=== PATIENT | male | born 1945 | race Caucasian/White ===

== ENCOUNTER 2018-12-25 19:10 | Inpatient (IN) ==
--- NOTE | 2018-12-25 19:14 | Emergency Department Note ---
Fever HPI - General Stated Complaint: kidney problems Time Seen by Provider: 12/25/18 19:14 - Related Data Home Medications Medication Instructions Recorded Confirmed Alfuzosin HCl [Uroxatral] 10 mg PO DAILY 06/27/18 06/27/18 Allopurinol [Zyloprim 100 MG] 100 mg PO DAILY 06/27/18 06/27/18 Amlodipine Besylate 5 mg PO BID 06/27/18 06/27/18 Atenolol [Tenormin] 25 mg PO BID 06/27/18 06/27/18 Cholecalciferol (D-3) [Vitamin D] 1,000 unit PO DAILY 06/27/18 06/27/18 Cyanocobalamin (Vitamin B-12) 1,000 mcg PO DAILY 06/27/18 06/27/18 [Vitamin B12] Furosemide [Lasix] 40 mg PO BID 06/27/18 06/27/18 Gabapentin [Neurontin] 600 mg PO TID 06/27/18 06/27/18 Insulin Regular U-500 [HumuLIN R 0.8 unit SQ DAILY 06/27/18 06/27/18 U-500] Melatonin 10 mg PO DAILY 06/27/18 06/27/18 OxyCODONE/APAP 5/325 [Percocet 1 each PO Q6HR PRN 06/27/18 06/27/18 5/325 MG] Simvastatin [Zocor] 20 mg PO HS 06/27/18 06/27/18 Spironolact/Hydrochlorothiazid 1 each PO DAILY 06/27/18 06/27/18 [Aldactazide 25-25 Tablet] Warfarin Sodium 5 mg PO DAILY 06/27/18 06/27/18 hydrALAZINE [HydrALAZINE] 10 mg PO Q6HR 06/27/18 06/27/18 Allergies Allergy/AdvReac Type Severity Reaction Status Date / Time ciprofloxacin [From Cipro] AdvReac Nausea Verified 06/27/18 13:50 morphine AdvReac Nausea Verified 06/27/18 13:50 Saxagliptin [From Onglyza] AdvReac Nausea Verified 06/27/18 13:50 sulfamethoxazole AdvReac Nausea Verified 06/27/18 13:50 [From Bactrim] trimethoprim [From Bactrim] AdvReac Nausea Verified 06/27/18 13:50 Fever PMH - Past Medical History Medical history: Reports: CHF, diabetes, hypertension Surgical history: Reports: knee replacement Psychiatric history: Reports: no psych history - Social History Smoking Status: Former smoker Alcohol use: Reports: none Drug use: Reports: none Attestation Statement - Attestation Attestation: I reviewed the residents documentation and agree with the residents assessment and plan of care. I have personally had face to face time with the patient. (Brief History, Brief Exam, and MDM) I personally supervised and was present for the coronado/critical portions of the following procedures completed by the resident: (add procedures performed here). [id number] time provided Patient arrives from the [facility]. He was recently started on Bactrim for bilateral lower extremity cellulitis. He presents with generalized weakness, increased leg edema, and rash. The patient states he is now unable to ambulate. He does have impressive lower extremity edema with secondary superficial skin changes bilaterally including cobblestoning of the skin. I attest to supervising the resident physician's interpretation of the ECG
--- NOTE | 2018-12-25 19:36 | Emergency Department Note ---
Disposition Clinical Impression: CHF (congestive heart failure) Disposition: Admitted As Inpatient Condition: Fair General Adult HPI - General Chief complaint: ED Allergic Reaction Stated complaint: kidney problems Time Seen by Provider: 12/25/18 19:14 Source: patient, EMS Limitations: no limitations - History of Present Illness Pain Scale: 0 - Related Data Home Medications Medication Instructions Recorded Confirmed Allopurinol [Zyloprim 100 MG] 100 mg PO QAM 12/26/18 12/26/18 Allopurinol [Zyloprim 100 MG] 200 mg PO HS 12/26/18 12/26/18 Atenolol [Tenormin] 25 mg PO BID 12/26/18 12/26/18 Brimonidine 0.2% [Alphagan] 1 drop BOTH EYES BID 12/26/18 12/26/18 Cholecalciferol (D-3) [Vitamin D] 2,000 unit PO DAILY 12/26/18 12/26/18 Cyanocobalamin (Vitamin B-12) 500 mcg PO DAILY 12/26/18 12/26/18 [Vitamin B-12] Furosemide [Lasix] 80 mg PO BID 12/26/18 12/26/18 Gabapentin [Neurontin] 800 mg PO BID 12/26/18 12/26/18 Latanoprost [Xalatan] 1 drop BOTH EYES HS 12/26/18 12/26/18 OxyCODONE Immed Rel [Roxicodone 5 10 mg PO Q6HR 12/26/18 12/26/18 MG] Phenazopyridine HCl 200 mg PO TID 12/26/18 12/26/18 Simvastatin [Zocor] 20 mg PO HS 12/26/18 12/26/18 Spironolactone [Aldactone] 25 mg PO BID 12/26/18 12/26/18 Subcutaneous Insulin Pump [T:Slim] 1 each MC AD 12/26/18 12/26/18 Tamsulosin [Flomax] 0.4 mg PO DAILY 12/26/18 12/26/18 Warfarin [Coumadin] 5 mg PO SUMOTUWETHSA 12/26/18 12/26/18 Warfarin [Coumadin] 7.5 mg PO FR 12/26/18 12/26/18 amLODIPine [Norvasc] 5 mg PO BID 12/26/18 12/26/18 hydrALAZINE [HydrALAZINE] 10 mg PO BID 12/26/18 12/26/18 Allergies Allergy/AdvReac Type Severity Reaction Status Date / Time ciprofloxacin [From Cipro] AdvReac Nausea Verified 12/26/18 12:11 morphine AdvReac Nausea Verified 12/26/18 12:11 Saxagliptin [From Onglyza] AdvReac Nausea Verified 12/26/18 12:11 sulfamethoxazole AdvReac Nausea Verified 12/26/18 12:11 [From Bactrim] trimethoprim [From Bactrim] AdvReac Nausea Verified 12/26/18 12:11 Past Medical History - Past Medical History Medical history: Reports: CHF, diabetes, hypertension Surgical history: Reports: knee replacement Psychiatric history: Reports: no psych history - Social History Smoking Status: Former smoker Smokeless Tobacco Status: No Alcohol use: Reports: none Drug use: Reports: none Physical Exam - General Limitations: no limitations General appearance: alert, in no apparent distress Course Vital Signs Temperature 98.1 F 12/25/18 19:12 Pulse Rate 53 12/25/18 19:12 Respiratory Rate 18 12/25/18 19:12 Blood Pressure 150/55 12/25/18 19:12 O2 Sat by Pulse Oximetry 96 12/25/18 19:12 Temperature 98.0 F 12/27/18 11:13 Pulse Rate 70 12/27/18 11:13 Respiratory Rate 16 12/27/18 11:13 Blood Pressure 169/63 12/27/18 11:13 O2 Sat by Pulse Oximetry 93 12/27/18 11:13 Oxygen Delivery Oxygen Delivery Room Air Medical Decision Making - Lab Data Result diagrams: 12/27/18 00:23 12/27/18 00:23 Lab Results 12/25/18 12/25/18 12/25/18 Range/Units 19:21 19:21 19:21 WBC 8.1 (4.3-11.1) K/mcL RBC 3.51 L (4.19-5.50) M/mcL Hgb 10.1 L (12.9-16.9) g/dL Hct 31.4 L (37.5-50.1) % MCV 89.5 (83.0-100.0) fL MCH 28.8 (28.0-33.3) pg MCHC 32.2 (31.6-35.5) g/dL RDW 15.3 H (11.5-14.5) % Plt Count 196 (140-400) K/mcL MPV 11.3 (9.4-12.4) fL Immature Gran % 0.4 (0-4) % Seg Neutrophils % 78.3 % Lymphocytes % 11.9 % Monocytes % 7.6 % Eosinophils % 1.6 % Basophils % 0.2 % Neutrophils # 6.4 (1.6-8.9) K/mcL Lymphocytes # 1.0 (0.6-4.6) K/mcL Monocytes # 0.6 (0.0-1.3) K/mcL Eosinophils # 0.1 (0.0-0.6) K/mcL Basophils # 0.0 (0.0-0.2) K/mcL PT 47.8 H* (9.4-12.1) Seconds INR 4.2 Sodium 134 L (136-145) mEq/L Potassium 6.5 H* (3.5-5.1) mEq/L Chloride 104 (98-107) mEq/L Carbon Dioxide 21 L (23-29) mEq/L BUN 93 H (8-23) mg/dL Creatinine 3.67 H (0.70-1.30) mg/dL Est GFR ( Amer) 20 L (> 60) Est GFR (Non-Af Amer) 16 L (> 60) BUN/Creatinine Ratio 25 (6-26) Glucose 95 (70-105) mg/dL POC Glucose (70-99) mg/dL Calculated Osmolality 306 H (280-300) Calcium 9.1 (8.6-10.3) mg/dL Total Bilirubin 0.9 (0.3-1.0) mg/dL AST 29 (13-39) Units/L ALT 19 (7-52) Units/L Alkaline Phosphatase 79 (34-104) Units/L B-Natriuretic Peptide (Less than 100) pg/mL Serum Total Protein 7.5 (6.4-8.9) g/dL Albumin 3.3 L (3.5-5.7) g/dL Globulin 4.2 H (2.4-3.5) g/dL Albumin/Globulin Ratio 0.8 L (1.1-2.2) Urine Color (Yellow) Urine Clarity (Clear) Urine pH (5.0-8.0) pH Units Ur Specific Caldwell (1.010-1.025) Urine Protein (Neg-Trace) mg/dL Urine Glucose (UA) (Normal) mg/dL Urine Ketones (Negative) mg/dL Urine Blood (Negative) Urine Nitrite (Negative) Urine Bilirubin (Negative) Urine Urobilinogen (Normal) mg/dL Ur Leukocyte Esterase (Negative) Urine Microscopic RBC (0-3) per hpf Urine Microscopic WBC (0-3) per hpf Ur Squamous Epith Cells (None-Few) per lpf Urine Bacteria (None-Few) per hpf Hyaline Casts (None-Few) per lpf Urine Creatinine mg/dL Urine Sodium mEq/L Digoxin (0.8-2.0) ng/mL 12/25/18 12/25/18 12/25/18 Range/Units 19:21 19:25 20:06 WBC (4.3-11.1) K/mcL RBC (4.19-5.50) M/mcL Hgb (12.9-16.9) g/dL Hct (37.5-50.1) % MCV (83.0-100.0) fL MCH (28.0-33.3) pg MCHC (31.6-35.5) g/dL RDW (11.5-14.5) % Plt Count (140-400) K/mcL MPV (9.4-12.4) fL Immature Gran % (0-4) % Seg Neutrophils % % Lymphocytes % % Monocytes % % Eosinophils % % Basophils % % Neutrophils # (1.6-8.9) K/mcL Lymphocytes # (0.6-4.6) K/mcL Monocytes # (0.0-1.3) K/mcL Eosinophils # (0.0-0.6) K/mcL Basophils # (0.0-0.2) K/mcL PT (9.4-12.1) Seconds INR Sodium (136-145) mEq/L Potassium (3.5-5.1) mEq/L Chloride (98-107) mEq/L Carbon Dioxide (23-29) mEq/L BUN (8-23) mg/dL Creatinine (0.70-1.30) mg/dL Est GFR ( Amer) (> 60) Est GFR (Non-Af Amer) (> 60) BUN/Creatinine Ratio (6-26) Glucose (70-105) mg/dL POC Glucose 90 (70-99) mg/dL Calculated Osmolality (280-300) Calcium (8.6-10.3) mg/dL Total Bilirubin (0.3-1.0) mg/dL AST (13-39) Units/L ALT (7-52) Units/L Alkaline Phosphatase (34-104) Units/L B-Natriuretic Peptide 317 H (Less than 100) pg/mL Serum Total Protein (6.4-8.9) g/dL Albumin (3.5-5.7) g/dL Globulin (2.4-3.5) g/dL Albumin/Globulin Ratio (1.1-2.2) Urine Color Yellow (Yellow) Urine Clarity Clear (Clear) Urine pH 5.5 (5.0-8.0) pH Units Ur Specific [place]dwell 1.012 (1.010-1.025) Urine Protein Negative (Neg-Trace) mg/dL Urine Glucose (UA) Normal (Normal) mg/dL Urine Ketones Negative (Negative) mg/dL Urine Blood Negative (Negative) Urine Nitrite Negative (Negative) Urine Bilirubin Negative (Negative) Urine Urobilinogen Normal (Normal) mg/dL Ur Leukocyte Esterase Trace H (Negative) Urine Microscopic RBC 5-15 H (0-3) per hpf Urine Microscopic WBC 3-5 H (0-3) per hpf Ur Squamous Epith Cells Many H (None-Few) per lpf Urine Bacteria None Seen (None-Few) per hpf Hyaline Casts Few (None-Few) per lpf Urine Creatinine mg/dL Urine Sodium mEq/L Digoxin (0.8-2.0) ng/mL 12/25/18 12/25/18 12/25/18 Range/Units 20:06 22:52 23:46 WBC (4.3-11.1) K/mcL RBC (4.19-5.50) M/mcL Hgb (12.9-16.9) g/dL Hct (37.5-50.1) % MCV (83.0-100.0) fL MCH (28.0-33.3) pg MCHC (31.6-35.5) g/dL RDW (11.5-14.5) % Plt Count (140-400) K/mcL MPV (9.4-12.4) fL Immature Gran % (0-4) % Seg Neutrophils % % Lymphocytes % % Monocytes % % Eosinophils % % Basophils % % Neutrophils # (1.6-8.9) K/mcL Lymphocytes # (0.6-4.6) K/mcL Monocytes # (0.0-1.3) K/mcL Eosinophils # (0.0-0.6) K/mcL Basophils # (0.0-0.2) K/mcL PT (9.4-12.1) Seconds INR Sodium (136-145) mEq/L Potassium (3.5-5.1) mEq/L Chloride (98-107) mEq/L Carbon Dioxide (23-29) mEq/L BUN (8-23) mg/dL Creatinine (0.70-1.30) mg/dL Est GFR ( Amer) (> 60) Est GFR (Non-Af Amer) (> 60) BUN/Creatinine Ratio (6-26) Glucose (70-105) mg/dL POC Glucose 69 L 82 (70-99) mg/dL Calculated Osmolality (280-300) Calcium (8.6-10.3) mg/dL Total Bilirubin (0.3-1.0) mg/dL AST (13-39) Units/L ALT (7-52) Units/L Alkaline Phosphatase (34-104) Units/L B-Natriuretic Peptide (Less than 100) pg/mL Serum Total Protein (6.4-8.9) g/dL Albumin (3.5-5.7) g/dL Globulin (2.4-3.5) g/dL Albumin/Globulin Ratio (1.1-2.2) Urine Color (Yellow) Urine Clarity (Clear) Urine pH (5.0-8.0) pH Units Ur Specific [place]dwell (1.010-1.025) Urine Protein (Neg-Trace) mg/dL Urine Glucose (UA) (Normal) mg/dL Urine Ketones (Negative) mg/dL Urine Blood (Negative) Urine Nitrite (Negative) Urine Bilirubin (Negative) Urine Urobilinogen (Normal) mg/dL Ur Leukocyte Esterase (Negative) Urine Microscopic RBC (0-3) per hpf Urine Microscopic WBC (0-3) per hpf Ur Squamous Epith Cells (None-Few) per lpf Urine Bacteria (None-Few) per hpf Hyaline Casts (None-Few) per lpf Urine Creatinine 100 mg/dL Urine Sodium 24.4 mEq/L Digoxin (0.8-2.0) ng/mL 12/26/18 12/26/18 12/26/18 Range/Units 01:12 01:12 01:49 WBC (4.3-11.1) K/mcL RBC (4.19-5.50) M/mcL Hgb (12.9-16.9) g/dL Hct (37.5-50.1) % MCV (83.0-100.0) fL MCH (28.0-33.3) pg MCHC (31.6-35.5) g/dL RDW (11.5-14.5) % Plt Count (140-400) K/mcL MPV (9.4-12.4) fL Immature Gran % (0-4) % Seg Neutrophils % % Lymphocytes % % Monocytes % % Eosinophils % % Basophils % % Neutrophils # (1.6-8.9) K/mcL Lymphocytes # (0.6-4.6) K/mcL Monocytes # (0.0-1.3) K/mcL Eosinophils # (0.0-0.6) K/mcL Basophils # (0.0-0.2) K/mcL PT 49.3 H* (9.4-12.1) Seconds INR 4.4 H* Sodium 136 (136-145) mEq/L Potassium 6.1 H (3.5-5.1) mEq/L Chloride 107 (98-107) mEq/L Carbon Dioxide 22 L (23-29) mEq/L BUN 93 H (8-23) mg/dL Creatinine 3.61 H (0.70-1.30) mg/dL Est GFR ( Amer) 20 L (> 60) Est GFR (Non-Af Amer) 17 L (> 60) BUN/Creatinine Ratio 26 (6-26) Glucose 61 L (70-105) mg/dL POC Glucose 70 (70-99) mg/dL Calculated Osmolality 309 H (280-300) Calcium 9.1 (8.6-10.3) mg/dL Total Bilirubin (0.3-1.0) mg/dL AST (13-39) Units/L ALT (7-52) Units/L Alkaline Phosphatase (34-104) Units/L B-Natriuretic Peptide (Less than 100) pg/mL Serum Total Protein (6.4-8.9) g/dL Albumin (3.5-5.7) g/dL Globulin (2.4-3.5) g/dL Albumin/Globulin Ratio (1.1-2.2) Urine Color (Yellow) Urine Clarity (Clear) Urine pH (5.0-8.0) pH Units Ur Specific [place]dwell (1.010-1.025) Urine Protein (Neg-Trace) mg/dL Urine Glucose (UA) (Normal) mg/dL Urine Ketones (Negative) mg/dL Urine Blood (Negative) Urine Nitrite (Negative) Urine Bilirubin (Negative) Urine Urobilinogen (Normal) mg/dL Ur Leukocyte Esterase (Negative) Urine Microscopic RBC (0-3) per hpf Urine Microscopic WBC (0-3) per hpf Ur Squamous Epith Cells (None-Few) per lpf Urine Bacteria (None-Few) per hpf Hyaline Casts (None-Few) per lpf Urine Creatinine mg/dL Urine Sodium mEq/L Digoxin 0.8 (0.8-2.0) ng/mL 12/26/18 12/26/18 12/26/18 Range/Units 02:43 03:11 04:05 WBC 6.1 (4.3-11.1) K/mcL RBC 3.28 L (4.19-5.50) M/mcL Hgb 9.5 L (12.9-16.9) g/dL Hct 29.4 L (37.5-50.1) % MCV 89.6 (83.0-100.0) fL MCH 29.0 (28.0-33.3) pg MCHC 32.3 (31.6-35.5) g/dL RDW 15.3 H (11.5-14.5) % Plt Count 166 (140-400) K/mcL MPV 11.8 (9.4-12.4) fL Immature Gran % 0.3 (0-4) % Seg Neutrophils % 70.3 % Lymphocytes % 15.0 % Monocytes % 10.1 % Eosinophils % 4.1 % Basophils % 0.2 % Neutrophils # 4.3 (1.6-8.9) K/mcL Lymphocytes # 0.9 (0.6-4.6) K/mcL Monocytes # 0.6 (0.0-1.3) K/mcL Eosinophils # 0.3 (0.0-0.6) K/mcL Basophils # 0.0 (0.0-0.2) K/mcL PT (9.4-12.1) Seconds INR Sodium (136-145) mEq/L Potassium (3.5-5.1) mEq/L Chloride (98-107) mEq/L Carbon Dioxide (23-29) mEq/L BUN (8-23) mg/dL Creatinine (0.70-1.30) mg/dL Est GFR ( Amer) (> 60) Est GFR (Non-Af Amer) (> 60) BUN/Creatinine Ratio (6-26) Glucose (70-105) mg/dL POC Glucose 80 84 (70-99) mg/dL Calculated Osmolality (280-300) Calcium (8.6-10.3) mg/dL Total Bilirubin (0.3-1.0) mg/dL AST (13-39) Units/L ALT (7-52) Units/L Alkaline Phosphatase (34-104) Units/L B-Natriuretic Peptide (Less than 100) pg/mL Serum Total Protein (6.4-8.9) g/dL Albumin (3.5-5.7) g/dL Globulin (2.4-3.5) g/dL Albumin/Globulin Ratio (1.1-2.2) Urine Color (Yellow) Urine Clarity (Clear) Urine pH (5.0-8.0) pH Units Ur Specific [place]dwell (1.010-1.025) Urine Protein (Neg-Trace) mg/dL Urine Glucose (UA) (Normal) mg/dL Urine Ketones (Negative) mg/dL Urine Blood (Negative) Urine Nitrite (Negative) Urine Bilirubin (Negative) Urine Urobilinogen (Normal) mg/dL Ur Leukocyte Esterase (Negative) Urine Microscopic RBC (0-3) per hpf Urine Microscopic WBC (0-3) per hpf Ur Squamous Epith Cells (None-Few) per lpf Urine Bacteria (None-Few) per hpf Hyaline Casts (None-Few) per lpf Urine Creatinine mg/dL Urine Sodium mEq/L Digoxin (0.8-2.0) ng/mL Critical Care Time Critical Care Time: Yes Total Critical Care Time: 30 Attestation: The high probability of a clinically significant, sudden or life threatening deterioration of the [] system(s) required my full and direct attention, intervention and personal management. The aggregate critical care time was [] minutes. This time is in addition to time spent performing reported procedures but includes the following: [] Data Review and interpretation [] Patient assessment and monitoring of vital signs [] Documentation [] Medication orders and management Attestation Statement - Attestation Attestation: I reviewed the residents documentation and agree with the residents assessment and plan of care. I have personally had face to face time with the patient. (Brief History, Brief Exam, and MDM) I personally supervised and was present for the coronado/critical portions of the following procedures completed by the resident: (add procedures performed here). [id number] time provided Patient arrives in the [facility] with decreased ability to ambulate and increased lower extremity edema. He does have impressive lower extremity edema with erythematous skin changes and cobblestoning of the skin. He was recently placed on Bactrim for suspected cellulitis. The patient appears generally weak on exam. I did review his baseline medication list and past medical history as sent by the [place] I attest to supervising the resident physician's interpretation of the ECG
--- NOTE | 2018-12-25 19:37 | Emergency Department Note ---
Disposition Clinical Impression: CHF (congestive heart failure) Qualifiers: Qualified Code(s): I50.9 - Disposition: Admitted As Inpatient Condition: Fair Time of Disposition: 08:59 General Adult HPI - General Chief complaint: ED Allergic Reaction Stated complaint: kidney problems Time Seen by Provider: 12/25/18 19:14 Source: patient, EMS Limitations: no limitations Nursing Notes Reviewed: Yes Vital Signs Reviewed: Yes - History of Present Illness HPI Narrative: 73-year-old male past medical history of diabetes, CHF, prior DVT, on Coumadin, noncompliant with CHF medications per patient's (taking when necessary digoxin) Was put on Bactrim last Wednesday for the management of cellulitis Patient states that he has allergy to sulfa drugs Patient states that he began having severe itchiness, difficulty breathing, since Wednesday evening In addition to the above stated symptoms, patient missed to fever/chills, dysphagia, feeling of tightness in the throat, chest pain, shortness of breath, abdominal pain/nausea/vomiting, Patient has not had anorexia, hematuria or hematochezia Onset (ago): day(s) Location: head, face, chest, abdomen Pain Severity: severe Pain Scale: 0 Quality: other (Itching) Associated symptoms: Reports: chest pain, fever/chills, nausea/vomiting, shortness of breath, weakness Treatments Prior to Arrival: none - Related Data Home Medications Medication Instructions Recorded Confirmed Alfuzosin HCl [Uroxatral] 10 mg PO DAILY 06/27/18 06/27/18 Allopurinol [Zyloprim 100 MG] 100 mg PO DAILY 06/27/18 06/27/18 Amlodipine Besylate 5 mg PO BID 06/27/18 06/27/18 Atenolol [Tenormin] 25 mg PO BID 06/27/18 06/27/18 Cholecalciferol (D-3) [Vitamin D] 1,000 unit PO DAILY 06/27/18 06/27/18 Cyanocobalamin (Vitamin B-12) 1,000 mcg PO DAILY 06/27/18 06/27/18 [Vitamin B12] Furosemide [Lasix] 40 mg PO BID 06/27/18 06/27/18 Gabapentin [Neurontin] 600 mg PO TID 06/27/18 06/27/18 Insulin Regular U-500 [HumuLIN R 0.8 unit SQ DAILY 06/27/18 06/27/18 U-500] Melatonin 10 mg PO DAILY 06/27/18 06/27/18 OxyCODONE/APAP 5/325 [Percocet 1 each PO Q6HR PRN 06/27/18 06/27/18 5/325 MG] Simvastatin [Zocor] 20 mg PO HS 06/27/18 06/27/18 Spironolact/Hydrochlorothiazid 1 each PO DAILY 06/27/18 06/27/18 [Aldactazide 25-25 Tablet] Warfarin Sodium 5 mg PO DAILY 06/27/18 06/27/18 hydrALAZINE [HydrALAZINE] 10 mg PO Q6HR 06/27/18 06/27/18 Allergies Allergy/AdvReac Type Severity Reaction Status Date / Time ciprofloxacin [From Cipro] AdvReac Nausea Verified 06/27/18 13:50 morphine AdvReac Nausea Verified 06/27/18 13:50 Saxagliptin [From Onglyza] AdvReac Nausea Verified 06/27/18 13:50 sulfamethoxazole AdvReac Nausea Verified 06/27/18 13:50 [From Bactrim] trimethoprim [From Bactrim] AdvReac Nausea Verified 06/27/18 13:50 All systems ED: reviewed and negative except as stated. Review of Systems: As Per HPI Constitutional: Reports: fever, chills Cardiovascular: Reports: chest pain Respiratory: Reports: dyspnea Gastrointestinal: Reports: abdominal pain, nausea, vomiting. Denies: hematochezia Genitourinary: Denies: hematuria Musculoskeletal: Reports: back pain, neck pain Neurological: Reports: weakness. Denies: headache, numbness, paresthesias Past Medical History - Past Medical History Source: patient Medical history: Reports: CHF, diabetes, hypertension Surgical history: Reports: knee replacement Psychiatric history: Reports: no psych history - Social History Smoking Status: Former smoker Smokeless Tobacco Status: No Alcohol use: Reports: none Drug use: Reports: none Physical Exam - General Limitations: no limitations General appearance: alert, in no apparent distress - Head Head exam: atraumatic, normocephalic, normal inspection - Eye Eye exam: Present: normal appearance, PERRL, EOMI. Absent: scleral icterus, conjunctival injection - Neck Neck exam: Present: normal inspection, trachea midline - Chest Chest inspection: Present: normal inspection, symmetric chest wall rise - Respiratory Respiratory exam: Present: normal lung sounds bilaterally. Absent: respiratory distress, wheezes, stridor, accessory muscle use, prolonged expiratory phase - Cardiovascular Cardiovascular exam: Present: regular rate, normal rhythm, normal heart sounds, +S1, +S2. Absent: systolic murmur, diastolic murmur, JVD, +S3, +S4 - Abdominal Exam Abdominal exam: Present: soft, Non-Tender, normal bowel sounds. Absent: d istention, guarding, rebound, rigidity, organomegaly - Extremities Exam Extremities exam: Present: pedal edema (3+ pitting edema with venous stasis ulceration and blistering in bilateral lower extremities) - Neurological Exam Neurological exam: Present: alert - Psychiatric Psychiatric exam: Present: anxious - Skin Skin exam: Present: warm, dry, intact, normal color, erythema. Absent: rash, cyanosis, diaphoresis, pallor, mottled Course Course Narrative: Concern for CHF in addition to allergic reaction CBC, CMP, BNP, PT/INR EKG Chest x-ray DuoNeb's and Benadryl for the management of patient's symptoms. Vital Signs Temperature 98.1 F 12/25/18 19:12 Pulse Rate 53 12/25/18 19:12 Respiratory Rate 18 12/25/18 19:12 Blood Pressure 150/55 12/25/18 19:12 O2 Sat by Pulse Oximetry 96 12/25/18 19:12 Temperature 98.2 F 12/26/18 07:40 Pulse Rate 66 12/26/18 07:40 Respiratory Rate 16 12/26/18 07:40 Blood Pressure 152/61 12/26/18 07:40 O2 Sat by Pulse Oximetry 94 12/26/18 07:40 Oxygen Delivery Oxygen Delivery Room Air Medical Decision Making - [facility] Narrative Medical decision making narrative: Chest x-ray shows pulmonary vascular congestion, there is an elevated BNP without prior value for comparison Creatinine is elevated above prior values showing acute kidney injury superimposed on chronic kidney disease Patient with hyperkalemia, administered duo nebs, calcium gluconate, started on insulin/dextrose-no EKG changes Patient will be admitted to hospitalist medicine service for further evaluation and management of congestive heart failure/hyperkalemia. - Lab Data Lab results reviewed: Yes I reviewed the patient's lab results. Result diagrams: 12/26/18 04:12/26/18 01:12 Lab Results 12/25/18 12/25/18 12/25/18 Range/Units 19:21 19:21 19:21 WBC 8.1 (4.3-11.1) K/mcL RBC 3.51 L (4.19-5.50) M/mcL Hgb 10.1 L (12.9-16.9) g/dL Hct 31.4 L (37.5-50.1) % MCV 89.5 (83.0-100.0) fL MCH 28.8 (28.0-33.3) pg MCHC 32.2 (31.6-35.5) g/dL RDW 15.3 H (11.5-14.5) % Plt Count 196 (140-400) K/mcL MPV 11.3 (9.4-12.4) fL Immature Gran % 0.4 (0-4) % Seg Neutrophils % 78.3 % Lymphocytes % 11.9 % Monocytes % 7.6 % Eosinophils % 1.6 % Basophils % 0.2 % Neutrophils # 6.4 (1.6-8.9) K/mcL Lymphocytes # 1.0 (0.6-4.6) K/mcL Monocytes # 0.6 (0.0-1.3) K/mcL Eosinophils # 0.1 (0.0-0.6) K/mcL Basophils # 0.0 (0.0-0.2) K/mcL PT 47.8 H* (9.4-12.1) Seconds INR 4.2 Sodium 134 L (136-145) mEq/L Potassium 6.5 H* (3.5-5.1) mEq/L Chloride 104 (98-107) mEq/L Carbon Dioxide 21 L (23-29) mEq/L BUN 93 H (8-23) mg/dL Creatinine 3.67 H (0.70-1.30) mg/dL Est GFR ( Amer) 20 L (> 60) Est GFR (Non-Af Amer) 16 L (> 60) BUN/Creatinine Ratio 25 (6-26) Glucose 95 (70-105) mg/dL POC Glucose (70-99) mg/dL Calculated Osmolality 306 H (280-300) Calcium 9.1 (8.6-10.3) mg/dL Total Bilirubin 0.9 (0.3-1.0) mg/dL AST 29 (13-39) Units/L ALT 19 (7-52) Units/L Alkaline Phosphatase 79 (34-104) Units/L B-Natriuretic Peptide (Less than 100) pg/mL Serum Total Protein 7.5 (6.4-8.9) g/dL Albumin 3.3 L (3.5-5.7) g/dL Globulin 4.2 H (2.4-3.5) g/dL Albumin/Globulin Ratio 0.8 L (1.1-2.2) Urine Color (Yellow) Urine Clarity (Clear) Urine pH (5.0-8.0) pH Units Ur Specific [place] (1.010-1.025) Urine Protein (Neg-Trace) mg/dL Urine Glucose (UA) (Normal) mg/dL Urine Ketones (Negative) mg/dL Urine Blood (Negative) Urine Nitrite (Negative) Urine Bilirubin (Negative) Urine Urobilinogen (Normal) mg/dL Ur Leukocyte Esterase (Negative) Urine Microscopic RBC (0-3) per hpf Urine Microscopic WBC (0-3) per hpf Ur Squamous Epith Cells (None-Few) per lpf Urine Bacteria (None-Few) per hpf Hyaline Casts (None-Few) per lpf Urine Creatinine mg/dL Urine Sodium mEq/L Digoxin (0.8-2.0) ng/mL 12/25/18 12/25/18 12/25/18 Range/Units 19:21 19:25 20:06 WBC (4.3-11.1) K/mcL RBC (4.19-5.50) M/mcL Hgb (12.9-16.9) g/dL Hct (37.5-50.1) % MCV (83.0-100.0) fL MCH (28.0-33.3) pg MCHC (31.6-35.5) g/dL RDW (11.5-14.5) % Plt Count (140-400) K/mcL MPV (9.4-12.4) fL Immature Gran % (0-4) % Seg Neutrophils % % Lymphocytes % % Monocytes % % Eosinophils % % Basophils % % Neutrophils # (1.6-8.9) K/mcL Lymphocytes # (0.6-4.6) K/mcL Monocytes # (0.0-1.3) K/mcL Eosinophils # (0.0-0.6) K/mcL Basophils # (0.0-0.2) K/mcL PT (9.4-12.1) Seconds INR Sodium (136-145) mEq/L Potassium (3.5-5.1) mEq/L Chloride (98-107) mEq/L Carbon Dioxide (23-29) mEq/L BUN (8-23) mg/dL Creatinine (0.70-1.30) mg/dL Est GFR ( Amer) (> 60) Est GFR (Non-Af Amer) (> 60) BUN/Creatinine Ratio (6-26) Glucose (70-105) mg/dL POC Glucose 90 (70-99) mg/dL Calculated Osmolality (280-300) Calcium (8.6-10.3) mg/dL Total Bilirubin (0.3-1.0) mg/dL AST (13-39) Units/L ALT (7-52) Units/L Alkaline Phosphatase (34-104) Units/L B-Natriuretic Peptide 317 H (Less than 100) pg/mL Serum Total Protein (6.4-8.9) g/dL Albumin (3.5-5.7) g/dL Globulin (2.4-3.5) g/dL Albumin/Globulin Ratio (1.1-2.2) Urine Color Yellow (Yellow) Urine Clarity Clear (Clear) Urine pH 5.5 (5.0-8.0) pH Units Ur Specific [place] 1.012 (1.010-1.025) Urine Protein Negative (Neg-Trace) mg/dL Urine Glucose (UA) Normal (Normal) mg/dL Urine Ketones Negative (Negative) mg/dL Urine Blood Negative (Negative) Urine Nitrite Negative (Negative) Urine Bilirubin Negative (Negative) Urine Urobilinogen Normal (Normal) mg/dL Ur Leukocyte Esterase Trace H (Negative) Urine Microscopic RBC 5-15 H (0-3) per hpf Urine Microscopic WBC 3-5 H (0-3) per hpf Ur Squamous Epith Cells Many H (None-Few) per lpf Urine Bacteria None Seen (None-Few) per hpf Hyaline Casts Few (None-Few) per lpf Urine Creatinine mg/dL Urine Sodium mEq/L Digoxin (0.8-2.0) ng/mL 12/25/18 12/26/18 12/26/18 Range/Units 20:06 01:12 01:12 WBC (4.3-11.1) K/mcL RBC (4.19-5.50) M/mcL Hgb (12.9-16.9) g/dL Hct (37.5-50.1) % MCV (83.0-100.0) fL MCH (28.0-33.3) pg MCHC (31.6-35.5) g/dL RDW (11.5-14.5) % Plt Count (140-400) K/mcL MPV (9.4-12.4) fL Immature Gran % (0-4) % Seg Neutrophils % % Lymphocytes % % Monocytes % % Eosinophils % % Basophils % % Neutrophils # (1.6-8.9) K/mcL Lymphocytes # (0.6-4.6) K/mcL Monocytes # (0.0-1.3) K/mcL Eosinophils # (0.0-0.6) K/mcL Basophils # (0.0-0.2) K/mcL PT 49.3 H* (9.4-12.1) Seconds INR 4.4 H* Sodium 136 (136-145) mEq/L Potassium 6.1 H (3.5-5.1) mEq/L Chloride 107 (98-107) mEq/L Carbon Dioxide 22 L (23-29) mEq/L BUN 93 H (8-23) mg/dL Creatinine 3.61 H (0.70-1.30) mg/dL Est GFR ( Amer) 20 L (> 60) Est GFR (Non-Af Amer) 17 L (> 60) BUN/Creatinine Ratio 26 (6-26) Glucose 61 L (70-105) mg/dL POC Glucose (70-99) mg/dL Calculated Osmolality 309 H (280-300) Calcium 9.1 (8.6-10.3) mg/dL Total Bilirubin (0.3-1.0) mg/dL AST (13-39) Units/L ALT (7-52) Units/L Alkaline Phosphatase (34-104) Units/L B-Natriuretic Peptide (Less than 100) pg/mL Serum Total Protein (6.4-8.9) g/dL Albumin (3.5-5.7) g/dL Globulin (2.4-3.5) g/dL Albumin/Globulin Ratio (1.1-2.2) Urine Color (Yellow) Urine Clarity (Clear) Urine pH (5.0-8.0) pH Units Ur Specific [place] (1.010-1.025) Urine Protein (Neg-Trace) mg/dL Urine Glucose (UA) (Normal) mg/dL Urine Ketones (Negative) mg/dL Urine Blood (Negative) Urine Nitrite (Negative) Urine Bilirubin (Negative) Urine Urobilinogen (Normal) mg/dL Ur Leukocyte Esterase (Negative) Urine Microscopic RBC (0-3) per hpf Urine Microscopic WBC (0-3) per hpf Ur Squamous Epith Cells (None-Few) per lpf Urine Bacteria (None-Few) per hpf Hyaline Casts (None-Few) per lpf Urine Creatinine 100 mg/dL Urine Sodium 24.4 mEq/L Digoxin 0.8 (0.8-2.0) ng/mL 12/26/18 Range/Units 04:05 WBC 6.1 (4.3-11.1) K/mcL RBC 3.28 L (4.19-5.50) M/mcL Hgb 9.5 L (12.9-16.9) g/dL Hct 29.4 L (37.5-50.1) % MCV 89.6 (83.0-100.0) fL MCH 29.0 (28.0-33.3) pg MCHC 32.3 (31.6-35.5) g/dL RDW 15.3 H (11.5-14.5) % Plt Count 166 (140-400) K/mcL MPV 11.8 (9.4-12.4) fL Immature Gran % 0.3 (0-4) % Seg Neutrophils % 70.3 % Lymphocytes % 15.0 % Monocytes % 10.1 % Eosinophils % 4.1 % Basophils % 0.2 % Neutrophils # 4.3 (1.6-8.9) K/mcL Lymphocytes # 0.9 (0.6-4.6) K/mcL Monocytes # 0.6 (0.0-1.3) K/mcL Eosinophils # 0.3 (0.0-0.6) K/mcL Basophils # 0.0 (0.0-0.2) K/mcL PT (9.4-12.1) Seconds INR Sodium (136-145) mEq/L Potassium (3.5-5.1) mEq/L Chloride (98-107) mEq/L Carbon Dioxide (23-29) mEq/L BUN (8-23) mg/dL Creatinine (0.70-1.30) mg/dL Est GFR ( Amer) (> 60) Est GFR (Non-Af Amer) (> 60) BUN/Creatinine Ratio (6-26) Glucose (70-105) mg/dL POC Glucose (70-99) mg/dL Calculated Osmolality (280-300) Calcium (8.6-10.3) mg/dL Total Bilirubin (0.3-1.0) mg/dL AST (13-39) Units/L ALT (7-52) Units/L Alkaline Phosphatase (34-104) Units/L B-Natriuretic Peptide (Less than 100) pg/mL Serum Total Protein (6.4-8.9) g/dL Albumin (3.5-5.7) g/dL Globulin (2.4-3.5) g/dL Albumin/Globulin Ratio (1.1-2.2) Urine Color (Yellow) Urine Clarity (Clear) Urine pH (5.0-8.0) pH Units Ur Specific [place] (1.010-1.025) Urine Protein (Neg-Trace) mg/dL Urine Glucose (UA) (Normal) mg/dL Urine Ketones (Negative) mg/dL Urine Blood (Negative) Urine Nitrite (Negative) Urine Bilirubin (Negative) Urine Urobilinogen (Normal) mg/dL Ur Leukocyte Esterase (Negative) Urine Microscopic RBC (0-3) per hpf Urine Microscopic WBC (0-3) per hpf Ur Squamous Epith Cells (None-Few) per lpf Urine Bacteria (None-Few) per hpf Hyaline Casts (None-Few) per lpf Urine Creatinine mg/dL Urine Sodium mEq/L Digoxin (0.8-2.0) ng/mL - Radiology Data Radiology results reviewed: Yes I reviewed the patient's radiology results. Chest X-Ray 12/25/18 19:21 IMPRESSION: [id number] cardiomegaly, pulmonary vascular congestion and trace pleural fluid. D/ / Armaan Martinez MD / Armaan Martinez MD Interpreting Provider: Armaan Martinez MD - EKG Data EKG #1 EKG attestation: Yes I reviewed and interpreted this EKG. EKG results narrative: Patient EKG shows atrial fibrillation with a heart rate of 53 bpm QRS duration of 115 ms, QT/QTc interval of 467/439 ms respectively. There are no significant ST segment elevations, depressions, there is a pathologic Q waves noted in lead aVR which appears isolated to that lead, there are no abnormal T-wave inversions or any other signs of acute ischemic change. At this time there is no prior EKG available for comparison.
[2018-12-25] MEDS ORDERED: Ipratropium/Albuterol Neb 3 ML IH ONE (19:39)
[2018-12-25 19:41] LABS: Basophils % 0.2 %; Eosinophils # 0.1 K/mcL (0.0-0.6); Eosinophils % 1.6 %; Hematocrit 31.4 % (37.5-50.1); Hemoglobin 10.1 g/dL (12.9-16.9); Immature Granulocytes % 0.4 % (0-4); Lymphocytes % 11.9 %; Mean Corpuscular HGB Conc 32.2 g/dL (31.6-35.5); Mean Corpuscular Hemoglobin 28.8 pg (28.0-33.3); Mean Corpuscular Volume 89.5 fL (83.0-100.0); Mean Platelet Volume 11.3 fL (9.4-12.4); Monocytes # 0.6 K/mcL (0.0-1.3); Monocytes % 7.6 %; Neutrophils # 6.4 K/mcL (1.6-8.9); Platelet Count 196 K/mcL (140-400); Red Blood Count 3.51 M/mcL (4.19-5.50); Red Cell Distribution Width 15.3 % (11.5-14.5); Segmented Neutrophils % 78.3 %
[2018-12-25 19:48] LABS: INR 4.2
[2018-12-25 20:10] LABS: Albumin 3.3 g/dL (3.5-5.7); Albumin/Globulin Ratio 0.8 (1.1-2.2); Bilirubin,Total 0.9 mg/dL (0.3-1.0); Calcium 9.1 mg/dL (8.6-10.3); Globulin 4.2 g/dL (2.4-3.5); Potassium 6.5 mEq/L (3.5-5.1); Total Protein 7.5 g/dL (6.4-8.9)
[2018-12-25 20:14] LABS: Prothrombin Time 47.8 Seconds (9.4-12.1)
[2018-12-25] MEDS ORDERED: *HR* Dextrose 50 % in Water (Vial) 50 ML VIAL IVP ONE (20:17)
[2018-12-25] MEDS ORDERED: Insulin Human Regular 5 UNIT in 0.9 % Sodium Chloride 10 ML IV ONE (20:17)
[2018-12-25] MEDS ORDERED: Calcium Gluconate 2,000 MG in 0.9 % Sodium Chloride 100 ML IVPB ONE (20:18)
[2018-12-25 20:19] LABS: Bilirubin,Urine Negative (Negative); Blood,Urine Negative (Negative); Clarity,Urine Clear (Clear); Color,Urine Yellow (Yellow); Glucose,Urine (UA) Normal (Normal); Ketones,Urine Negative (Negative); Leukocyte Esterase,Urine Trace (Negative); Nitrite,Urine Negative (Negative); PH,Urine 5.5 pH Units (5.0-8.0); Protein,Urine Negative (Neg-Trace); Specific Gravity,Urine 1.012 (1.010-1.025); Urobilinogen,Urine Normal (Normal)
[2018-12-25 20:20] LABS: Bacteria,Urine None Seen per hpf (None-Few); Hyaline Casts,Urine Few per lpf (None-Few); Squamous Epithelial Cell,Urine Many per lpf (None-Few)
[2018-12-25] MEDS ORDERED: Furosemide 40 MG/4 ML VIAL IVP ONE (21:09)
[2018-12-25] MEDS ORDERED: *HR* Dextrose 50 % in Water (Syg) 50 ML SYRINGE ONE (21:18)
[2018-12-25 23:38] LABS: Sodium, Urine 24.4 mEq/L
--- NOTE | 2018-12-25 23:56 | Internal Med History&Physical ---
<Sly Rodarte - Last Filed: 12/26/18 04:07> Date of Encounter: 12/26/18 Time of Encounter: 22:00 Internal Medicine - H&P: HPI Chief complaint: allergic reaction to bactrim History of present illness: Mr. Duque is a 73 year old male with a past medical history of flow CVA, gout, chronic sciatica, CKD , alcoholic cirrhosis of liver, CHF, A. fib on Coumadin, COPD PTSD, sleep apnea, diabetes, hypertension, OA is a transfer patient from [facility] because of concerns for Bactrim allergy. He was recently discharged from the [facility] after completing his stay from 12/08-12/12 where he was getting treated for CHF and questionable bilateral cellulitis infection? He was seen back by his primary care doctor on December 23 and was placed on Bactrim double strength tablets for persistence of his lower extremity erythema with concerns for cellulitis. Patient has a known a history of allergy to sulfa drugs. As per the notes from the [facility], patient started developing itching al over his body which got persistently worsened on Wednesday on December 24, and after the evening his did not give any further medications. Patient also appeared to be more confused that evening, but wasn't found to be confused when he was brought to the [facility] ER. Workup in the ER at [facility] showed that patient was afebrile and hemodynamicaly stable, was complaining of being itchy all over the body and given Benadryl. Patient was found to have 3+ pitting edema with venous stasis ulceration and blistering of the bilateral lower extremities. He was not found to be in any respiratory distress and not complaining of any headaches, nor were there was any concerns for any severe anaphylactic reaction. His blood chemistry showed that his Hb was 10.1, PT of 47.8, was hyperkalemic with K- 6.5, BUN 93, creatinine 3.67, with a GFR of 16. Patient's EKG did not show any peaked T waves, had slight widening of QRS complexes at 115ms, was in A. fib with heart rate of 53 bpm, with a QT/QTc: 467/439. Patient was given insulin and D50 in the ED along with calcium gluconate and was admitted to the floor for further management. Patient was somnolent when I saw him. He was arousable to commands but was barely able to answer my questions and would go back to sleep. This could be likely because he got Benadryl in the ED. Patient also had a insulin pump on his belly. He had 4+ pitting edema, significant erythema and cobblestoning of his lower extremities. Past Med Surg Social Fam HX - Past Medical History Medical history: arthritis, atrial fibrillation, cirrhosis, CHF, COPD, diabetes, glaucoma, hypertension Additional medical history: sciatica, gout, CKD III, DORIE, DM II Psychiatric history: PTSD - Past Surgical History Surgical History: knee replacement Additional surgical history: knee replacement x3 - Social History Smoking Status: Former smoker Smokeless Tobacco Status: No Alcohol use: none Drug use: none Internal Medicine - H&P: Meds Alfuzosin HCl [Uroxatral] 10 mg PO DAILY 06/27/18 [History] Allopurinol [Zyloprim 100 MG] 100 mg PO DAILY 06/27/18 [History] Amlodipine Besylate 5 mg PO BID 06/27/18 [History] Atenolol [Tenormin] 25 mg PO BID 06/27/18 [History] Cholecalciferol (D-3) [Vitamin D] 1,000 unit PO DAILY 06/27/18 [History] Cyanocobalamin (Vitamin B-12) [Vitamin B12] 1,000 mcg PO DAILY 06/27/18 [History] Furosemide [Lasix] 40 mg PO BID 06/27/18 [History] Gabapentin [Neurontin] 600 mg PO TID 06/27/18 [History] Insulin Regular U-500 [HumuLIN R U-500] 0.8 unit SQ DAILY 06/27/18 [History] Melatonin 10 mg PO DAILY 06/27/18 [History] OxyCODONE/APAP 5/325 [Percocet 5/325 MG] 1 each PO Q6HR PRN 06/27/18 [History] Simvastatin [Zocor] 20 mg PO HS 06/27/18 [History] Spironolact/Hydrochlorothiazid [Aldactazide 25-25 Tablet] 1 each PO DAILY 06/27/18 [History] Warfarin Sodium 5 mg PO DAILY 06/27/18 [History] hydrALAZINE [HydrALAZINE] 10 mg PO Q6HR 06/27/18 [History] Allergy/AdvReac Type Severity Reaction Status Date / Time ciprofloxacin [From Cipro] AdvReac Nausea Verified 06/27/18 13:50 morphine AdvReac Nausea Verified 06/27/18 13:50 Saxagliptin [From Onglyza] AdvReac Nausea Verified 06/27/18 13:50 sulfamethoxazole AdvReac Nausea Verified 06/27/18 13:50 [From Bactrim] trimethoprim [From Bactrim] AdvReac Nausea Verified 06/27/18 13:50 All Systems PM: A 10-system review of systems was performed and is negative for pertinent findings except as documented above in the HPI. - Constitutional Constitutional: no fever(s) - EENT Eyes: no blurry vision - Cardiovascular Cardiovascular ROS IM: no chest pain - Respiratory Respiratory: no dyspnea - Gastrointestinal Gastrointestinal: no abdominal pain - Genitourinary Genitourinary ROS male: no dysuria - Integumentary Integumentary IM: erythema, pruritus - Constitutional Vitals: Temp Pulse Resp BP Pulse Ox 97.7 F 54 18 144/67 96 12/25/18 22:43 12/25/18 22:43 12/25/18 22:43 12/25/18 22:43 12/25/18 22:43 Exam: Gen.: Vitals noted. No acute distress. Alert, awake and oriented * [address], [address], and time, well developed, well-nourished resting comfortably in bed. Pleasant. HEENT: oropharynx clear, Normocephalic, atraumatic, MMM Neck: supple, no JVD, no lymphadenopathy, no carotid bruit. Cardiac: Afib, no murmur, +S1/S2, No BLE edema, PMI non-displaced Pulmonary: CTA bilaterally, no wheezes, rales or rhonchi, equal chest expansion, unlabored breathing Abdomen: soft, nontender, BS noted, no guarding, mildly distended. No organomegaly, no pulsatile masses, Skin: b/l lower extremity erythema, warm to touch with cobblestoning of skin, 4+ pitting edema MSK: ROM not assessed. no joint swelling noted, gait not assessed while in bed. Non tender calf or clubbing, no cyanosis/clubbing/ or edema Neuro: could not asses neurological status because patient was somnolent Psych: could not assess mentation because patient was somnolent. Internal Med - H&P Results - Labs CBC & Chem 7: 12/25/18 19:21 12/26/18 01:12 Labs: Short CBC 12/25/18 Range/Units 19:21 WBC 8.1 (4.3-11.1) K/mcL Hgb 10.1 L (12.9-16.9) g/dL Hct 31.4 L (37.5-50.1) % Plt Count 196 (140-400) K/mcL Neutrophils # 6.4 (1.6-8.9) K/mcL BMP 12/25/18 19:21 Sodium 134 L Potassium 6.5 H* Chloride 104 Carbon Dioxide 21 L BUN 93 H Creatinine 3.67 H Glucose 95 Calcium 9.1 Liver Function 12/25/18 Range/Units 19:21 Total Bilirubin 0.9 (0.3-1.0) mg/dL AST 29 (13-39) Units/L ALT 19 (7-52) Units/L Alkaline Phosphatase 79 (34-104) Units/L Albumin 3.3 L (3.5-5.7) g/dL Urine 12/25/18 Range/Units 20:06 Urine Color Yellow (Yellow) Urine Clarity Clear (Clear) Urine pH 5.5 (5.0-8.0) pH Units Ur Specific [place] 1.012 (1.010-1.025) Urine Protein Negative (Neg-Trace) mg/dL Urine Glucose (UA) Normal (Normal) mg/dL - Impressions ITS Impressions Chest X-Ray 12/25/18 19:21 IMPRESSION: Upvr-co-qefdanaj cardiomegaly, pulmonary vascular congestion and trace pleural fluid. D/ / Armaan Martinez MD / Armaan Martinez MD Interpreting Provider: Armaan Martinez MD - Assessment and Plan (1) Allergic reaction Current Visit: Yes Status: Acute Assessment and plan: Likely due to Bactrim that patient was prescribed 2 days ago for treatment of low extremity infection (although i am not convinced that is cellulitis ). - patient presented to the [facility] because of generalized itching and weakness . patient denied any respiratory distress that time, there was no concern for anaphylactic reaction. -Patient was given Benadryl 25 mg in the ER. - Will continue to monitor and will give more Benadryl if itching persists. Qualifiers: Qualified Code(s): T78.40XA - Allergy, unspecified, initial encounter (2) Hyperkalemia Current Visit: Yes Status: Acute Assessment and plan: Patient was found to be hyperkalemic with a K of 6.5. -Likely due to his Hx of worsening CKD with GFR of 20 on presentation. Patient's GFR was 41 on his last admission on 06/27/2018 - He received insulin+ D50, calcium gluconate in the ED -EKG was negative for any peaked T waves , and have mildly widened QRS interval 115 ms PLAN: - Continue to monitor him on telemetry -Repeat BMP and if K still high will give Kayexelate -We will consult nephrology for his worsening kidney function (3) Venous stasis dermatitis of both lower extremities Current Visit: Yes Status: Acute Assessment and plan: Likely due to venous stasis secondary due to history of diabetes Patient was on spironolactone and Lasix as his home meds to help with his edmea. also takes gabapentin for his diabetic neuropathy He was given the Lasix in the ER. Given his worsening kidney function will hold lasix for now, administer albumin to facilitate intravascular repletion of fluids (4) CKD (chronic kidney disease) Current Visit: Yes Status: Acute Assessment and plan: -Patient presents with borderline Stage 4/5 CKD likely due to history of for diabetes and hypertension -He presented to the ED with a GFR of 16. We do not have any prior records from past to assess his baseline kidney function. -Patient was also found to be hyperkalemic with K : 6.5 -He was given 40 mg Lasix in the ED. - urine output 625 mL so far PLAN: -Refrain from any maintenance fluids because of concerns for pulmonary congestion -Refrain from using diuretics so as not to compromise his kidney function - Renal ultrasound pending. -Consult nephrology for need for dialysis in the near future with GFR ~16 Qualifiers: Qualified Code(s): N18.4 - Chronic kidney disease, stage 4 (severe) (5) Acute kidney injury superimposed on CKD Current Visit: Yes Status: Acute Assessment and plan: - patient presented to theEd with BUN:93, Cr: 3.67 ( no baseline values john ilable) -Urine Cr: 100, Urine Na: 24.4, FENa: 0.7%, BUN/Cr > 20 - Etiology likely pre-renal, due to third spacing because of low end of normal albumin at 3.3 + Hx of CHF PLAN: - will administer albumin to facilitate intravascular repletion of the fluids - will refrain administering fluids because of concerns for pulmonary vascular congestion - Renal Ultrasound pending - Will consult Nephrology for further recommendation (6) CHF (congestive heart failure) Current Visit: Yes Status: Acute Assessment and plan: -Chest x-ray was significant for moderate cardiomegaly along with concerns for pulmonary vascular congestion and trace pleural fluid. -Patient is on Lasix 40 mg and Aldactone 25 mg as home medications. - patient received a dose of lasix in the ED -On physical exam patient does not appear to have decreased breath sounds or rales. He deos have bilateral 4+ pitting edema - Will monitor daily weight , strict Is/Os, PLAN: -We will hold off on diuretics right now because of his CKD (Borderline Stage 4/5) with worsening GFR of 16 and concerns for pre-renal COLIN - will administer albumin to promote intravascular repletion of fluids - Will get an echocardiogram to estimate EF - will consult Cardiology depending upon his Echo findings - will hold off on his Atenolol because of concerns for bradycardia . Will resume in the AM at a lower dose of 12.5 PO /daily. Qualifiers: Qualified Code(s): I50.9 - Heart failure, unspecified (7) Diabetes Current Visit: Yes Status: Acute Assessment and plan: -Patient has a known history of diabetes -He is on insulin pump at home. -Will discontinue his insulin pump for now and put him on low-dose sliding scale insulin -Patient takes gabapentin 800 mg for diabetic neuropathy and will hold off on it because of his somnolence. Qualifiers: Qualified Code(s): E11.9 - Type 2 diabetes mellitus without complications (8) Atrial fibrillation Current Visit: Yes Status: Acute Assessment and plan: -Patient comes in the history of atrial fibrillation with a CHADVASc score of 6. He came with an INR of 4.2 , repeat INR was 4.4. - He's on coumadin at home , rate controlled on atenolol 25 mg PO PLAN: - will reduce Atenolol from 25 to 12.5 PO because of bradycardia - currently on fall precautions because of being somnolent, Supratherapeutic INR of 4.4 - Coumadin - Pharmacy to dose Qualifiers: Qualified Code(s): I48.91 - Unspecified atrial fibrillation (9) Gout Current Visit: Yes Status: Acute Assessment and plan: Patient has a history of gout. He is on allopurinol at home We will resume his home meds once patient is not very somnolent Qualifiers: Qualified Code(s): M10.9 - Gout, unspecified (10) HTN (hypertension) Current Visit: Yes Status: Acute Assessment and plan: -Patient has a history of hypertension. He presented to the ED with blood pressure of 150s systolic -He is on Lasix 40 mg and Aldactone 25 mg as home meds -We will hold off on his home diuretics for now because of worsening kidney function, and administer hydralazine 10 mg IVP when necessary for systolic blood pressure > 160 Qualifiers: Qualified Code(s): I10 - Essential (primary) hypertension (11) Bradycardia Current Visit: Yes Status: Acute Assessment and plan: Patient presents to the ER heart rate of 50s-55. -Likely polypharmacy induced because patient is on atenolol, and tamsulosin -digoxin not listed as one of his home meds but [facility] about 5 doses of digoxin over the last 3 days and the last dose was around midnight last night. PLAN: Hold tamsulosin and atenolol for now. We will get a digoxin level on the patient (12) COPD (chronic obstructive pulmonary disease) Current Visit: Yes Status: Acute Assessment and plan: -Patient has a history of chronic obstructive lung disease. -Patient currently does not appear to be in COPD exacerbation -DuoNeb when necessary. No indications for steroids at the moment. Qualifiers: Qualified Code(s): J44.9 - Chronic obstructive pulmonary disease, unspecified (13) DVT prophylaxis Current Visit: Yes Status: Acute Assessment and plan: On coumadin - Time Spent With Patient Total time spent is greater than 50% in coordination of care (as documented) at patient's floor/unit and/or counseling patient: <Krzysztof Lopez - Last Filed: 12/26/18 04:23> Date of Encounter: 12/26/18 Time of Encounter: 01:00 ROS unobtainable: due to mental status - Constitutional Vitals: Temp Pulse Resp BP Pulse Ox 98.3 F 58 17 145/60 97 12/26/18 03:14 12/26/18 03:14 12/26/18 03:14 12/26/18 03:14 12/26/18 03:14 General appearance: Present: A&O X 1 Exam: somnolent; arousable; alert to self only - Head Head exam: Present: atraumatic, normal inspection - Eye Eye exam: Present: EOMI, PERRL. Absent: scleral icterus Pupils: Present: normal accommodation - ENT ENT exam: Present: mucous membranes dry - Neck Neck exam general surgery: Present: full ROM, supple, trachea midline. Absent: tenderness - Respiratory Respiratory exam: Present: decreased breath sounds (bases), rhonchi. Absent: chest wall tenderness, rales, respiratory distress, wheezes, tachypnea - Cardiovascular Cardiovascular exam: Present: distant heart sounds, +S1, +S2. Absent: diastolic murmur, systolic murmur - GI/Abdominal GI/Abdominal exam: Present: normal bowel sounds, soft. Absent: hepatomegaly, mass, splenomegaly, tenderness - Extremities Exam Extremities exam: Present: full ROM, pedal edema (3-4+), warm, radial pulses palpable and symmetrical. Absent: calf tenderness Additional comments: venous stasis changes - Neurological Exam Neurological exam: Present: altered, no focal deficits, strengths equal and symetr throughout Additional comments: somnolent; arousable to verbal command; does not cooperate with neurologic exam; purposeful movement - Skin Skin exam: Present: dry, intact, warm Internal Med - H&P Results - Labs CBC & Chem 7: 12/25/18 19:21 12/26/18 01:12 Labs: Short CBC 12/25/18 Range/Units 19:21 WBC 8.1 (4.3-11.1) K/mcL Hgb 10.1 L (12.9-16.9) g/dL Hct 31.4 L (37.5-50.1) % Plt Count 196 (140-400) K/mcL Neutrophils # 6.4 (1.6-8.9) K/mcL BMP 12/25/18 12/26/18 19:21 01:12 Sodium 134 L 136 Potassium 6.5 H* 6.1 H Chloride 104 107 Carbon Dioxide 21 L 22 L BUN 93 H 93 H Creatinine 3.67 H 3.61 H Glucose 95 61 L Calcium 9.1 9.1 Liver Function 12/25/18 Range/Units 19:21 Total Bilirubin 0.9 (0.3-1.0) mg/dL AST 29 (13-39) Units/L ALT 19 (7-52) Units/L Alkaline Phosphatase 79 (34-104) Units/L Albumin 3.3 L (3.5-5.7) g/dL Urine 12/25/18 Range/Units 20:06 Urine Color Yellow (Yellow) Urine Clarity Clear (Clear) Urine pH 5.5 (5.0-8.0) pH Units Ur Specific [place] 1.012 (1.010-1.025) Urine Protein Negative (Neg-Trace) mg/dL Urine Glucose (UA) Normal (Normal) mg/dL - Impressions ITS Impressions Chest X-Ray 12/25/18 19:21 IMPRESSION: Qvsy-ip-uimohycc cardiomegaly, pulmonary vascular congestion and trace pleural fluid. D/ / Armaan Martinez MD / Armaan Martinez MD Interpreting Provider: Armaan Martinez MD - Time Spent With Patient Total time spent is greater than 50% in coordination of care (as documented) at patient's floor/unit and/or counseling patient: - Attending Attestation I discussed the patient EYAK, past medical history, exam findings, lab data, and imaging findings with Dr. Rodarte. I then saw and examined patient independently as well. He is quite somnolent but easily arousable to verbal command. He did receive Benadryl for allergic reaction to the Bactrim. I suspect he is sedated from the Benadryl. He does not appear to have any mucosal lesions and has no rash presently. He does have some redness of his lower extremities which is likely venous stasis changes. I agree he does have 3-4+ pitting edema which is likely chronic from his kidney disease. Lungs were grossly clear and exam except for occasional rhonchi. Even denies peripheral edema, he does not appear to be wet on chest exam. Furthermore, we calculated his fractional excretion of sodium and it is low suggesting a prerenal state. We are holding off diuresis at this time. I agree with the albumin infusion one time. We will ask nephrology to see him in consultation and we will treat the hyperkalemia. Other than my comments above and documented exam findings, I agree with Dr. Rodarte's assessment and plan.
[2018-12-26] MEDS ORDERED: *HR* Dextrose 50 % in Water (Syg) 50 ML SYRINGE IVP PRN (00:34)
[2018-12-26] MEDS ORDERED: Dextrose Gel 15 GM/37.5 ML TUBE PO PRN (00:34)
[2018-12-26] MEDS ORDERED: D5% in Water 1,000 ML IVC PRN (00:34)
[2018-12-26] MEDS ORDERED: Albumin 25% 25gram/100mL 25 GM/100 ML IV.SOLN IVPB ONE (00:59)
[2018-12-26] MEDS: Insulin LISPRO 300 UNITS/3 ML VIAL SQ SCH ×5 (01:14→20:55)
[2018-12-26 01:47] LABS: INR 4.4; Prothrombin Time 49.3 Seconds (9.4-12.1)
[2018-12-26 01:58] LABS: Calcium 9.1 mg/dL (8.6-10.3); Potassium 6.1 mEq/L (3.5-5.1)
[2018-12-26] MEDS: Dextrose Gel 15 GM/37.5 ML TUBE PO PRN ×2 (02:17→06:37)
[2018-12-26 02:37] LABS: Digoxin 0.8 ng/mL (0.8-2.0)
[2018-12-26] MEDS ORDERED: Ipratropium/Albuterol Neb 3 ML IH PRN (04:06)
[2018-12-26 04:29] LABS: Basophils % 0.2 %; Eosinophils # 0.3 K/mcL (0.0-0.6); Eosinophils % 4.1 %; Hematocrit 29.4 % (37.5-50.1); Hemoglobin 9.5 g/dL (12.9-16.9); Immature Granulocytes % 0.3 % (0-4); Lymphocytes # 0.9 K/mcL (0.6-4.6); Mean Corpuscular HGB Conc 32.3 g/dL (31.6-35.5); Mean Corpuscular Volume 89.6 fL (83.0-100.0); Mean Platelet Volume 11.8 fL (9.4-12.4); Monocytes # 0.6 K/mcL (0.0-1.3); Monocytes % 10.1 %; Neutrophils # 4.3 K/mcL (1.6-8.9); Platelet Count 166 K/mcL (140-400); Red Blood Count 3.28 M/mcL (4.19-5.50); Red Cell Distribution Width 15.3 % (11.5-14.5); Segmented Neutrophils % 70.3 %
[2018-12-26] MEDS ORDERED: Dextrose Gel 15 GM/37.5 ML TUBE PO ONE (06:32)
[2018-12-26 07:12] LABS: ABG Base Excess 0 mEq/L (-2 to 3); ABG HCO3 24 mEq/L (21-27); ABG Oxygen Saturation 96 % (95-98); ABG PCO2 34 mmHg (35-45); ABG PH 7.45 pH Units (7.32-7.45); ABG PO2 78 mmHg (85-104); ABG TCO2 25 mEq/L (20-26)
--- NOTE | 2018-12-26 09:50 | Electrocardiograph Report ---
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
[2018-12-26] MEDS ORDERED: Perflutren Lipid Microsphere 1.3 ML in 0.9 % Sodium Chloride 8.7 ML IVP ONE (10:32)
--- NOTE | 2018-12-26 13:01 | Nephrology Consult Note ---
Date of Encounter: 12/26/18 Time of Encounter: 12:30 Assessment and Plan (1) Acute kidney injury superimposed on CKD Current Visit: Yes Status: Acute Baseline stage IIIb CKD. Patient was a baseline creatinine of 1.94 back in 06/27/18. Current creatinine at 3.67. Was given Bactrim recently in for cellulitis. Given 40 mg dose of IV Lasix for peripheral Edema. UOP of 0.2 cc/kg/hr. Albumin of 3.3. Given 25 gm of albumin. Patient has a FeNa of 0.6% indicating prerenal azotemia. COLIN on CKD IIIb in setting of Bactrim and diuretic use. - Avoid nephrotoxins. - Lasix on hold. - Hold spirinolactone. - Renal u/s pending. - CPK labs to r/o rhabdo. - Urine eosinophil lab. (2) Hyperkalemia Current Visit: Yes Status: Acute 6.1 (dropped from 6.5). - s/p kayexalate overnight. Repeat potassium level at 5.9. - Repeat potassium level overnight. If increases, suggest to give another dose of kayexalate. History of Present Illness - Chief Complaint Confusion and LE swelling - History of Present Illness Mr. Duque is a 73 year old male with a past medical history of flow CVA, gout, chronic sciatica, CKD, alcoholic cirrhosis of liver, CHF, A. fib on Coumadin, COPD PTSD, sleep apnea, T2DM, hypertension, OA is a transfer patient from [place] because of concerns for Bactrim allergy. He was recently discharged from the [facility] where he was getting treated for CHF and questionable bilateral cellulitis infection. Patient was placed on Bactrim DS. Patient has a known a history of allergy to sulfa drugs. Was brought in to the ER after developing pruritus over his body as well confusion. Upon presentation to the [place] ER, patient did not appear to be confused. Workup in the ER at [facility] showed that patient was afebrile and hemodynamicaly stable. Was found to have 3+ pitting edema with venous stasis ulceration and blistering of the bilateral lower extremities. No respiratory distress or concerns for severe anaphylactic reaction. His blood chemistry showed that his Hb was 10.1, PT of 47.8, was hyperkalemic with K- 6.5, BUN 93, creatinine 3.67, with a GFR of 16. EKG did not show any peaked T waves, had slight widening of QRS complexes at 115ms, and was in A. fib with heart rate of 53 bpm, with a QT/QTc: 467/439. Patient was given insulin and D50 in the ED along with calcium gluconate and was admitted to the floor for further management. Nephrology was consulted for worsening renal function. 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 Wade. next appointment will be in 02/2019. Patient is aware that he has a history of CKD. He denies any chest pain, SOB, nausea, or vomiting. He does admit to SOB with exertion. He admits to having chronic issues with LE swelling, however it has gotten much worse in the last couple of days. He denies any COLE or dizziness. Does admit to a minor productive cough with clear sputum. Denies any fever. Past Med Surg Social Fam HX - Past Medical History Medical history: arthritis, atrial fibrillation, cirrhosis, CHF, COPD, diabetes, glaucoma, hypertension Additional medical history: sciatica, gout, CKD III, DORIE, DM II Psychiatric history: PTSD - Past Surgical History Surgical History: knee replacement Additional surgical history: knee replacement x3 - Social History Smoking Status: Former smoker Smokeless Tobacco Status: No Alcohol use: none Drug use: none Medications and Allergies Allopurinol [Zyloprim 100 MG] 100 mg PO QAM 12/26/18 [History] Allopurinol [Zyloprim 100 MG] 200 mg PO HS 12/26/18 [History] Atenolol [Tenormin] 25 mg PO BID 12/26/18 [History] Brimonidine 0.2% [Alphagan] 1 drop BOTH EYES BID 12/26/18 [History] Cholecalciferol (D-3) [Vitamin D] 2,000 unit PO DAILY 12/26/18 [History] Cyanocobalamin (Vitamin B-12) [Vitamin B-12] 500 mcg PO DAILY 12/26/18 [History] Furosemide [Lasix] 80 mg PO BID 12/26/18 [History] Gabapentin [Neurontin] 800 mg PO BID 12/26/18 [History] Latanoprost [Xalatan] 1 drop BOTH EYES HS 12/26/18 [History] OxyCODONE Immed Rel [Roxicodone 5 MG] 10 mg PO Q6HR 12/26/18 [History] Phenazopyridine HCl 200 mg PO TID 12/26/18 [History] Simvastatin [Zocor] 20 mg PO HS 12/26/18 [History] Spironolactone [Aldactone] 25 mg PO BID 12/26/18 [History] Subcutaneous Insulin Pump [T:Slim] 1 each MC AD 12/26/18 [History] Tamsulosin [Flomax] 0.4 mg PO DAILY 12/26/18 [History] Warfarin [Coumadin] 5 mg PO SUMOTUWETHSA 12/26/18 [History] Warfarin [Coumadin] 7.5 mg PO FR 12/26/18 [History] amLODIPine [Norvasc] 5 mg PO BID 12/26/18 [History] hydrALAZINE [HydrALAZINE] 10 mg PO BID 12/26/18 [History] Allergy/AdvReac Type Severity Reaction Status Date / Time ciprofloxacin [From Cipro] AdvReac Nausea Verified 12/26/18 12:11 morphine AdvReac Nausea Verified 12/26/18 12:11 Saxagliptin [From Onglyza] AdvReac Nausea Verified 12/26/18 12:11 sulfamethoxazole AdvReac Nausea Verified 12/26/18 12:11 [From Bactrim] trimethoprim [From Bactrim] AdvReac Nausea Verified 12/26/18 12:11 Review of Systems Constitutional: weight gain, no fever(s), no headache(s) Cardiovascular: dyspnea on exertion, edema, leg edema, pedal edema, no chest pain, no chest pain at rest, no chest pain with activity, no dyspnea, no lightheadedness, no orthopnea Respiratory: cough, dyspnea on exertion Gastrointestinal: no abdominal pain, no constipation, no diarrhea, no nausea, no vomiting Neurological: no dizziness, no headache(s) Psychiatric: confusion (Ebforeadmission, but not now ) Exam - Vital Signs Vital signs: Initial Vital Signs Temp Pulse Resp BP Pulse Ox 98.1 F 53 18 150/55 96 12/25/18 19:12 12/25/18 19:12 12/25/18 19:12 12/25/18 19:12 12/25/18 19:12 Vital Signs - Last 8 Hours Temp Pulse Resp BP Pulse Ox 12/26/18 12:06 98.1 F 63 16 143/55 95 12/26/18 07:40 98.2 F 66 16 152/61 94 Intake and Output 12/25/18 12/26/18 12/26/18 23:59 07:59 15:59 Intake Total 130.05 / 130.05 100 / 100 Output Total 0 / 0 625 / 625 Balance 130.05 / 130.05 -525 / -525 Intake: IV Fluids 130.05 / 130.05 100 / 100 HumuLIN R 5 UNIT In Normal 10.05 / 10.05 Saline Flush 10 ML @ 1206 mls/ hr IV ONCE ONE Rx#:[id number] Flexbumin 25 gm In 100 ml @ 60 100 / 100 mls/hr IVPB ONCE ONE Rx#: [id number] Calcium Gluconate 2,000 MG In 0 120 / 120 .9 % Sodium Chloride 100 ML @ 220 mls/hr IVPB ONCE ONE Rx#: [id number] Oral 0 / 0 0 / 0 Output: Urine 0 / 0 625 / 625 Other: Stool Size Large Stool Consistency loose # Bowel Movements 1 Weight 173.907 kg Blood Glucose* 82 77 96 - General Appearance General appearance: obese Neck: no JVD Respiratory: clear Cardiology: no murmurs, no rub, no gallops, regular rate, regular rhythm, normal S1, normal S2 Gastrointestinal: normoactive bowel sounds, no tenderness, no guarding, no organomegaly Integumentary: warm and dry, erythema (Over tibial regions b/l) Neurologic: no focal deficit, alert and oriented x3 Musculoskeletal: no cyanosis Additional Comments: +3 b/l pitting edema of the LE. Pedal pulses intact and symmetrical in the LE b/l. Normal capillary refill in LE. Results - Lab Results 12/26/18 04:05 12/26/18 21:26 Most recent lab results 12/26/18 12/26/18 01:12 07:09 ABG pH 7.45 ABG pCO2 34 L ABG pO2 78 L ABG HCO3 24 ABG O2 Saturation 96 Calcium 9.1 Consult Discharge Plan - Plan [facility]: [facility] [Primary Care Provider] -
--- NOTE | 2018-12-26 13:39 | Event Note ---
Date of Encounter: 12/26/18 Time of Encounter: 13:38 Evaluated patient earlier today. Was admitted overnight. Denies any new complaints at this time. No chest pain or palpitations. Potassium levels remain elevated. Another dose of Kayexalate given. Awaiting nephrology recommendations. Continue to monitor renal function. Monitor input and output.
[2018-12-26] MEDS ORDERED: 0.9 % Sodium Chloride 1,000 ML IVC SCH (14:00)
[2018-12-26] MEDS ORDERED: Warfarin perPT PO PRN (18:00)
[2018-12-26] MEDS: *HR* OxyCODONE Immed Rel 5 MG TABLET PO PRN (22:24)
[2018-12-27 00:57] LABS: Basophils % 0.3 %; Eosinophils # 0.1 K/mcL (0.0-0.6); Eosinophils % 1.3 %; Hemoglobin 10.3 g/dL (12.9-16.9); Immature Granulocytes % 0.3 % (0-4); Lymphocytes # 0.9 K/mcL (0.6-4.6); Mean Corpuscular HGB Conc 32.2 g/dL (31.6-35.5); Mean Corpuscular Hemoglobin 29.3 pg (28.0-33.3); Mean Corpuscular Volume 90.9 fL (83.0-100.0); Monocytes # 0.7 K/mcL (0.0-1.3); Monocytes % 8.4 %; Neutrophils # 6.2 K/mcL (1.6-8.9); Platelet Count 188 K/mcL (140-400); Red Blood Count 3.52 M/mcL (4.19-5.50); Red Cell Distribution Width 15.6 % (11.5-14.5); Segmented Neutrophils % 78.7 %
[2018-12-27 01:05] LABS: INR 4.1
[2018-12-27 01:08] LABS: Prothrombin Time 46.7 Seconds (9.4-12.1)
[2018-12-27 01:17] LABS: Calcium 8.7 mg/dL (8.6-10.3); Potassium 5.7 mEq/L (3.5-5.1)
[2018-12-27] MEDS: *HR* OxyCODONE Immed Rel 5 MG TABLET PO PRN (04:10)
[2018-12-27] MEDS ORDERED: Ondansetron 4 MG/2 ML VIAL IVP ONE (06:16)
--- NOTE | 2018-12-27 07:50 | Internal Med Progress Note ---
<Kezia Kenny - Last Filed: 12/27/18 13:44> Hospitalist Progress Note - Encounter Date of Encounter: 12/27/18 Time of Encounter: 10:50 - Exam Vitals: Temp Pulse Resp BP Pulse Ox 98.0 F 70 16 169/63 93 12/27/18 11:13 12/27/18 11:13 12/27/18 11:13 12/27/18 11:13 12/27/18 11:13 - Time Spent with Patient Total time spent is greater than 50% in coordination of care (as documented) at patient's floor/unit and/or counseling patient: Internal Medicine: Result - Labs CBC & Chem 7: 12/27/18 00:23 12/27/18 00:23 Labs: Short CBC 12/27/18 Range/Units 00:23 WBC 7.8 (4.3-11.1) K/mcL Hgb 10.3 L (12.9-16.9) g/dL Hct 32.0 L (37.5-50.1) % Plt Count 188 (140-400) K/mcL Neutrophils # 6.2 (1.6-8.9) K/mcL BMP 12/26/18 12/26/18 12/27/18 13:08 21:26 00:23 Sodium 137 Potassium 5.9 H 6.0 H 5.7 H Chloride 107 Carbon Dioxide 20 L BUN 86 H Creatinine 3.36 H Glucose 176 H Calcium 8.7 - ABG Interpretation ABG results: ABG ABG pH 7.45 pH Units (7.32-7.45) 12/26/18 07:09 ABG pCO2 34 mmHg (35-45) L 12/26/18 07:09 ABG pO2 78 mmHg (85-104) L 12/26/18 07:09 ABG O2 Saturation 96 % (95-98) 12/26/18 07:09 PT/INR, D-dimer PT 46.7 Seconds (9.4-12.1) H* 12/27/18 00:23 - Impressions Impressions Retroperitoneum Ultrasound 12/26/18 16:00 IMPRESSION: No hydronephrosis. Evaluation limited by body habitus and poor penetration of sound. Patient cannot void. D/ / Knady Carrion MD / Kandy Carrion MD Interpreting Provider: Kandy Carrion MD Consult Discharge Plan - Plan [facility]errals: [facility] [Primary Care Provider] - - Attending Attestation I saw evaluated and examined this patient and my medical decision-making was reviewed with the Resident Physician, Toya Crandall. I agree with the documented findings, disposition and treatment plan as described except to any changes set forth below. We independently had [id number] contact with the patient. Patient with history of A. fib, CHF, diabetes and hypertension was hospitalized here with acute kidney injury and chronic kidney disease likely related to Bactrim use. Patient does continue to have lower extremity edema but he has had good urine output since Velasco catheter was placed yesterday. Overall, he feels much better. Denies any fevers or chills overnight. Reports that he is able to breathe better. No nausea or vomiting. Tolerating diet well. General: Patient is alert, mild distress,morbid obesity, oriented x 3 ENT: Mucous membranes moist Respiratory: Decreased breath sounds at both bases Cardiovascular: Regular rate and rhythm. s1 and s2 normal No clicks, rubs, gallops, or murmurs. Bilateral lower extremity edema Abdomen: Abdomen is soft, nontender. Bowel sounds are present Musculoskeletal: Spontaneously moving all extremities Skin: warm, dry, intact. Neuro: Alert oriented x 3 normal cranial nerves, no focal deficits Acute kidney injury on chronic kidney disease stage 4: Creatinine improving today. Continue to monitor renal function closely. Monitor input and output. Will hold off on further IV fluids as patient continues to have lower extremity edema. If renal function continues to improve tomorrow, consider starting low- dose diuretic. Venous stasis dermatitis of both lower extremities: Stable. Supportive care. Follow-up outpatient. Hyperkalemia: Due to acute kidney injury. improving. Potassium 5.7 today. Diabetes mellitus type 2: Monitor blood sugars. Continue diabetic diet. Continue sliding scale coverage. Neurontin for diabetic neuropathy. Atrial fibrillation: Paroxysmal. On digoxin. On anticoagulation with Coumadin. INR supratherapeutic at 4.1. Will continue to monitor and resume Coumadin when INR around 3. Essential hypertension: Blood pressure is elevated. Resume home medications after verification today. Will monitor and adjust antihypertensive regimen accordingly. DVT prophylaxis: Patient on Coumadin. <Toya Mcgraw - Last Filed: 12/27/18 19:59> Hospitalist Progress Note - Encounter Date of Encounter: 12/27/18 - Subjective Interval History: Seen and examined this morning at bedside. Pt is resting in bedside recliner and appears comfortable. He has no complaints today and reports no events overnight. He denies fevers, chills, dyspnea, chest pain, lower extremity pain. - Exam Vitals: Temp Pulse Resp BP Pulse Ox 98.5 F 68 22 152/68 93 12/27/18 04:55 12/27/18 04:55 12/27/18 06:26 12/27/18 04:55 12/27/18 06:26 Exam: General: No acute distress, sleepy HEENT: head normocephalic/atraumatic, EOMI, PERRL, sclera anicteric, moist mucus membranes, Neck: Supple Cardio: RRR, no murmurs, +S1/S2 Pulm: CTAB, no wheezing, rhonchi, rales. Normal respiratory effort. Abdomen: soft, nontender, BS+, obese Extremities: BLE 3+ pitting edema, venous stasis discoloration Neuro: AAOx3, no focal deficit, no speech deficit, CN II-XII grossly intact, moves all 4 extremities spontaneously MSK: Strength 5/5 throughout, no visible deformities Skin: venous stasis dermatitis bilaterally, cobblestone appearance, no discharge Psych: Appropriate mood and affect. Answers questions appropriately. Cooperative with exam - Assessment and Plan (1) Hyperkalemia Current Visit: Yes Status: Acute Assessment and Plan: Improving Most likely due to COLIN on CKD as result of receiving Bactrim as outpatient K 6.5 on admission ---> 5.7 today Received calcium gluconate, D50, and insulin in ED Emergent dialysis not required at this time - Follow K on morning labs - Kayexalate if K remains elevated - Continue to hold lasix and spironolactone - Nephrology following, recommendations appreciated (2) Acute kidney injury superimposed on CKD Current Visit: Yes Status: Acute Assessment and Plan: Slight improvement COLIN on CKD Stage III Likely d/t receiving Bactrim as outpatient in addition to urinary retention SCr 3.67 on arrival ---> SCr 3.36 today Retroperitoneal US negative for hydronephrosis Urology placed velasco catheter for urinary retention - Follow renal function on morning labs - Continue to hold spironolactone and lasix - Monitor UOP closely - Hold IVF for now due to continued BLE edema - Renal protective strategy, avoid nephrotoxins and renally dose medications - Nephrology following (3) Urinary retention with incomplete bladder emptying Current Visit: Yes Status: Acute Assessment and Plan: Post void residual over 600mL prior to Velasco placement by urology Renal US as above Restart Flomax Monitor UOP closely Per urology, continue velasco catheter Outpatient follow up with urology 1 week after discharge for voiding trial (4) Atrial fibrillation Current Visit: Yes Status: Chronic Assessment and Plan: Rate controlled Bradycardic on arrival HR 50's---> resolved, HR 60's to 70 today Home med atenolol---reportedly takes digoxin, however I don't see this on his home med list Coumadin taken at home for AC INR has been supratherapeutic, > 4 - Hold atenolol to avoid bradycardia - Repeat INR in morning, monitor for acute bleeding - Pharmacy to dose coumadin (5) HTN (hypertension) Current Visit: Yes Status: Chronic Assessment and Plan: BP above goal, not controlled Receiving amplodipine and scheduled hydralazine; amlodipine dose not increased d/t marked BLE edema Lasix and spironolactone have been held d/t hyperkalemia and COLIN - Continue current meds, may need to reassess dosages and agents used during this admission - IVP Hydralazine available PRN for SBP > 170 / DBP > 110 - Home anti-hypertensives may need to be adjusted on discharge (6) Diabetes Current Visit: Yes Status: Chronic Assessment and Plan: Sliding scale insulin Gabapentin for peripheral nephropathy Diabetic diet (7) Venous stasis dermatitis of both lower extremities Current Visit: Yes Status: Chronic Assessment and Plan: Chronic Supportive care with ambulation, leg elevation, compression stockings (8) COPD (chronic obstructive pulmonary disease) Current Visit: Yes Status: Chronic Assessment and Plan: Not in exacerbation Appropriate SpO2 on 2L nasal cannula Lungs clear on exam, no wheezing - Wean off nasal cannula if able - Evaluate need for home O2 in unable to wean from nasal cannula - Continue DuoNebs PRN DVT Prophylaxis: Supratherapeutic on coumadin Pharmacy to dose coumadin - Time Spent with Patient Total time spent is greater than 50% in coordination of care (as documented) at patient's floor/unit and/or counseling patient: less than 15 minutes Plan of Care Discussed with: patient Internal Medicine: Result - Labs CBC & Chem 7: 12/27/18 00:23 12/27/18 00:23 Labs: Short CBC 12/27/18 Range/Units 00:23 WBC 7.8 (4.3-11.1) K/mcL Hgb 10.3 L (12.9-16.9) g/dL Hct 32.0 L (37.5-50.1) % Plt Count 188 (140-400) K/mcL Neutrophils # 6.2 (1.6-8.9) K/mcL BMP 12/26/18 12/26/18 12/27/18 13:08 21:26 00:23 Sodium 137 Potassium 5.9 H 6.0 H 5.7 H Chloride 107 Carbon Dioxide 20 L BUN 86 H Creatinine 3.36 H Glucose 176 H Calcium 8.7 - ABG Interpretation ABG results: ABG ABG pH 7.45 pH Units (7.32-7.45) 12/26/18 07:09 ABG pCO2 34 mmHg (35-45) L 12/26/18 07:09 ABG pO2 78 mmHg (85-104) L 12/26/18 07:09 ABG O2 Saturation 96 % (95-98) 12/26/18 07:09 PT/INR, D-dimer PT 46.7 Seconds (9.4-12.1) H* 12/27/18 00:23 - Impressions Impressions Echocardiogram 12/26/18 01:15 Impressions: LVEF 70%. Normal LV chamber size, wall thickness and function. Grossly normal right ventricular size and function. No significant valvular dysfunction. No evidence of pulmonary hypertension. Left Ventricular Wall Motion: Rest Echo Findings The apex, apical inferior, mid inferior, basal inferior, apical anterior, mid anterior, basal anterior, apical septal, mid inferior septal, basal inferior septal, apical lateral, mid anterior lateral, basal anterior lateral, mid anterior septal, mid inferior lateral, basal anterior septal and basal inferior lateral tobin were hyperkinetic. Findings: Study Quality * Technically adequate exam. ECG Findings * Normal sinus rhythm. Left Ventricle * LVEF 70%, hyperdynamic LV. * Normal LV chamber size, wall thickness and function. * Normal left ventricular diastolic function. Right Ventricle * RV not well visualized, grossly normal right ventricular structure and function. Left Atrium * Normal left atrial size. Right Atrium * Normal right atrial size. Interatrial Septum * Interatrial septum not well evaluated. Aortic Valve * Aortic valve not well visualized. * Moderately sclerotic aortic valve leaflets. * No aortic stenosis. * No aortic regurgitation. Mitral Valve * Mitral valve not well visualized. * Mild mitral annular calcification * No mitral stenosis. * No mitral regurgitation. Tricuspid Valve * Tricuspid valve not well visualized. * No tricuspid stenosis. * No tricuspid regurgitation. * Unable to estimate RVSP due to lack of TR jet. * No evidence of pulmonary hypertension. Pulmonic Valve * Pulmonic valve is not well visualized. Aorta * Normally sized aortic root. Pericardium * The pericardium appears normal. IVC * The IVC is not well evaluated. Retroperitoneum Ultrasound 12/26/18 16:00 IMPRESSION: No hydronephrosis. Evaluation limited by body habitus and poor penetration of sound. Patient cannot void. D/ / Kandy Carrion MD / Kandy Carrion MD Interpreting Provider: Kandy Carrion MD <Toya Mcgraw - Last Filed: 12/27/18 19:59> (4) Atrial fibrillation Qualifiers: Qualified Code(s): I48.91 - Unspecified atrial fibrillation (5) HTN (hypertension) Qualifiers: Hypertension type: essential hypertension Qualified Code(s): I10 - Essential (primary) hypertension (6) Diabetes Qualifiers: Diabetes mellitus type: type 2 Diabetes mellitus complication status: with neurologic complications Diabetes mellitus complication detail: with unspecified neuropathy (8) COPD (chronic obstructive pulmonary disease) Qualifiers: Qualified Code(s): J44.9 - Chronic obstructive pulmonary disease, unspecified
[2018-12-27] MEDS: Insulin LISPRO 300 UNITS/3 ML VIAL SQ SCH ×4 (09:38→20:25)
--- NOTE | 2018-12-27 09:40 | Urology - Consult Note ---
<Anayeli Samaniego N - Last Filed: 12/27/18 09:37> Date of Encounter: 12/27/18 Time of Encounter: 09:00 - Assessment and Plan (1) Scrotal swelling Current Visit: Yes Status: Acute Assessment and plan: Patient is a 73-year-old male who presents with mild scrotal edema. Patient was recently treated for CHF exacerbation and is undergoing diuresis. Scrotal swelling is likely due to widespread anasarca. Recommended to continue with scrotal support. (2) Urinary retention with incomplete bladder emptying Current Visit: Yes Status: Acute Assessment and plan: Patient is a 73-year-old male who presents with urinary retention with incomplete bladder emptying. Patient's nurse was unsure if home meds were reconciled, therefore, patient may have been without Flomax. Patient underwent a reassuring renal ultrasound, although, study was limited secondary to patient's habitus. There was no hydronephrosis identified, and the urinary bladder was distended. Patient's nurse also reports an elevated PVR greater than 600 mL prior to Larios placement. We will continue Flomax daily as well as continue with an indwelling Larios catheter. Patient may return within 1 week of discharge to the outpatient urology office for a trial of void. Urology CN:HPI Consult date: 12/27/18 Reason for consult Urology: Difficult Larios (scrotal edema) Requesting physician: Dl Henry History of present illness: Patient is a 73-year-old male who presents with difficult Larios catheter insertion and scrotal edema. Patient was recently treated for CHF and cellulitis of the bilateral lower extremities with Bactrim by [facility] and sustained an allergic reaction. Patient subsequently presented to [facility] for further evaluation. Patient was found to have 4+ pitting edema and multiple venous stasis ulcers to the bilateral lower extremities. Patient was diuresed, and his renal function has been compromised. Nephrology is following. Patient was unable to void after his renal ultrasound, and the nursing staff encountered difficulty in placing urinary catheter. The nursing staff was eventually able to pass a 12-Australian catheter, draining over 1 L of transparent, clear yellow urine from the bladder. Patient's nurse states scrotal edema is improved after catheter insertion. Patient reports no baseline voiding dysfunction. Patient takes Flomax daily, and he denies any hesitancy, frequ ency, urgency, or incontinence. Patient has no personal history of prostate cancer and receives Flomax from his [place] primary care provider. Patient denies any known family history of prostate cancer or other malignancy. Past Med Surg Social Fam HX - Past Medical History Medical history: arthritis, atrial fibrillation, cirrhosis, CHF, COPD, diabetes, glaucoma, hypertension Additional medical history: sciatica, gout, CKD III, DORIE, DM II Psychiatric history: PTSD - Past Surgical History Surgical History: knee replacement Additional surgical history: knee replacement x3 - Social History Smoking Status: Former smoker Smokeless Tobacco Status: No Alcohol use: none Drug use: none - Additional Family History Additional family history: No known documented family history of prostate cancer or other malignancy Medications and Allergies Allopurinol [Zyloprim 100 MG] 100 mg PO QAM 12/26/18 [History] Allopurinol [Zyloprim 100 MG] 200 mg PO HS 12/26/18 [History] Atenolol [Tenormin] 25 mg PO BID 12/26/18 [History] Brimonidine 0.2% [Alphagan] 1 drop BOTH EYES BID 12/26/18 [History] Cholecalciferol (D-3) [Vitamin D] 2,000 unit PO DAILY 12/26/18 [History] Cyanocobalamin (Vitamin B-12) [Vitamin B-12] 500 mcg PO DAILY 12/26/18 [History] Furosemide [Lasix] 80 mg PO BID 12/26/18 [History] Gabapentin [Neurontin] 800 mg PO BID 12/26/18 [History] Latanoprost [Xalatan] 1 drop BOTH EYES HS 12/26/18 [History] OxyCODONE Immed Rel [Roxicodone 5 MG] 10 mg PO Q6HR 12/26/18 [History] Phenazopyridine HCl 200 mg PO TID 12/26/18 [History] Simvastatin [Zocor] 20 mg PO HS 12/26/18 [History] Spironolactone [Aldactone] 25 mg PO BID 12/26/18 [History] Subcutaneous Insulin Pump [T:Slim] 1 each MC AD 12/26/18 [History] Tamsulosin [Flomax] 0.4 mg PO DAILY 12/26/18 [History] Warfarin [Coumadin] 5 mg PO SUMOTUWETHSA 12/26/18 [History] Warfarin [Coumadin] 7.5 mg PO FR 12/26/18 [History] amLODIPine [Norvasc] 5 mg PO BID 12/26/18 [History] hydrALAZINE [HydrALAZINE] 10 mg PO BID 12/26/18 [History] Allergy/AdvReac Type Severity Reaction Status Date / Time ciprofloxacin [From Cipro] AdvReac Nausea Verified 12/26/18 12:11 morphine AdvReac Nausea Verified 12/26/18 12:11 Saxagliptin [From Onglyza] AdvReac Nausea Verified 12/26/18 12:11 sulfamethoxazole AdvReac Nausea Verified 12/26/18 12:11 [From Bactrim] trimethoprim [From Bactrim] AdvReac Nausea Verified 12/26/18 12:11 Review of Systems - Constitutional no chills, no fatigue, no fever(s) - EENT Nose, mouth and throat: no dizziness, no headache(s) - Cardiovascular dyspnea, no chest pain, no diaphoresis - Respiratory dyspnea, no cough - Gastrointestinal no abdominal pain, no nausea, no vomiting - Genitourinary change in urinary stream, difficulty urinating, scrotal swelling, no dysuria, no flank pain, no hematuria, no nocturia, no post void dribbling, no urinary frequency, no urinary hesitancy, no urinary incontinence, no urinary urgency - Musculoskeletal no back pain, no muscle weakness - Integumentary no erythema, no rash - Neurological no confusion, no syncope - Psychiatric no anxiety, no confusion - Hematologic/Lymphatic no easy bleeding, no easy bruising - Allergic/Immunologic no throat swelling, no wheezing Exam Initial Vital Signs Temp Pulse Resp BP Pulse Ox 98.1 F 53 18 150/55 96 12/25/18 19:12 12/25/18 19:12 12/25/18 19:12 12/25/18 19:12 12/25/18 19:12 - General physical appearance Present: no distress, no pain, obese - Eyes Present: PERRL, normal ocular movement - ENT Present: normal nares, no congestion - Neck Present: no masses, trachea midline, no lymphadenopathy - Respiratory Present: normal respiratory effort - Cardiovascular Cardiovascular exam IM: RRR - Abdomen Abdomen: Present: soft, non tender - Genitourinary testicles non-tender Urethral meatis: Present: patent Testicles: Present: enlarged (Mild scrotal edema bilaterally) - Integumentary Present: no abnormal pigmentation - Neurologic Present: normal coordination - Musculoskeletal Present: other (Normal posture) Urology Results - Labs 12/27/18 00:23 12/27/18 00:23 Abnormal lab results RBC 3.52 M/mcL (4.19-5.50) L 12/27/18 00:23 Hgb 10.3 g/dL (12.9-16.9) L 12/27/18 00:23 Hct 32.0 % (37.5-50.1) L 12/27/18 00:23 RDW 15.6 % (11.5-14.5) H 12/27/18 00:23 PT 46.7 Seconds (9.4-12.1) H* 12/27/18 00:23 INR 4.4 H* 12/26/18 01:12 ABG pCO2 34 mmHg (35-45) L 12/26/18 07:09 ABG pO2 78 mmHg (85-104) L 12/26/18 07:09 Sodium 134 mEq/L (136-145) L 12/25/18 19:21 Potassium 5.7 mEq/L (3.5-5.1) H 12/27/18 00:23 Carbon Dioxide 20 mEq/L (23-29) L 12/27/18 00:23 BUN 86 mg/dL (8-23) H 12/27/18 00:23 3.36 mg/dL (0.70-1.30) H 12/27/18 00:23 Est GFR ( Amer) 22 (> 60) L 12/27/18 00:23 Est GFR (Non-Af Amer) 18 (> 60) L 12/27/18 00:23 Glucose 176 mg/dL (70-105) H 12/27/18 00:23 POC Glucose 148 mg/dL (70-99) H 12/26/18 19:52 314 (280-300) H 12/27/18 00:23 B-Natriuretic Peptide 317 pg/mL (Less than 100) H 12/25/18 19:21 3.3 g/dL (3.5-5.7) L 12/25/18 19:21 4.2 g/dL (2.4-3.5) H 12/25/18 19:21 0.8 (1.1-2.2) L 12/25/18 19:21 Ur Leukocyte Esterase Trace (Negative) H 12/25/18 20:06 5-15 per hpf (0-3) H 12/25/18 20:06 3-5 per hpf (0-3) H 12/25/18 20:06 Ur Squamous Epith Cells Many per lpf (None-Few) H 12/25/18 20:06 Diabetes panel 12/26/18 12/26/18 12/27/18 Range/Units 13:08 21:26 00:23 Sodium 137 (136-145) mEq/L Potassium 5.9 H 6.0 H 5.7 H (3.5-5.1) mEq/L Chloride 107 (98-107) mEq/L Carbon Dioxide 20 L (23-29) mEq/L BUN 86 H (8-23) mg/dL Creatinine 3.36 H (0.70-1.30) mg/dL Glucose 176 H (70-105) mg/dL Calcium 8.7 (8.6-10.3) mg/dL Calcium panel 12/27/18 Range/Units 00:23 Calcium 8.7 (8.6-10.3) mg/dL Pituitary panel 12/26/18 12/26/18 12/27/18 Range/Units 13:08 21:26 00:23 Sodium 137 (136-145) mEq/L Potassium 5.9 H 6.0 H 5.7 H (3.5-5.1) mEq/L Chloride 107 (98-107) mEq/L Carbon Dioxide 20 L (23-29) mEq/L BUN 86 H (8-23) mg/dL Creatinine 3.36 H (0.70-1.30) mg/dL Glucose 176 H (70-105) mg/dL Calcium 8.7 (8.6-10.3) mg/dL Adrenal panel 12/26/18 12/26/18 12/27/18 Range/Units 13:08 21:26 00:23 Sodium 137 (136-145) mEq/L Potassium 5.9 H 6.0 H 5.7 H (3.5-5.1) mEq/L Chloride 107 (98-107) mEq/L Carbon Dioxide 20 L (23-29) mEq/L BUN 86 H (8-23) mg/dL Creatinine 3.36 H (0.70-1.30) mg/dL Glucose 176 H (70-105) mg/dL Calcium 8.7 (8.6-10.3) mg/dL All other labs normal. - Imaging US - kidney/bladder: report reviewed Consult Discharge Plan - Plan [facility]errals: [facility] Care Provider[facility] - <Rosales Burger - Last Filed: 12/27/18 16:19> Date of Encounter: 12/27/18 - Assessment and Plan (1) Scrotal swelling Current Visit: Yes Status: Acute Assessment and plan: As above (2) Urinary retention with incomplete bladder emptying Current Visit: Yes Status: Acute Assessment and plan: Patient seen and examined independently. History, review of systems and physical exam findings of PA verified. All pertinent imaging reviewed. I am in agreement with the assessment and plan as outlined by our Urologic Surgery Department Physician Credentials Specialist, Danette. Discussed the findings and suspected urethral stricture with patient and . Discharge to home with indwelling Larios. My office will arrange for cystoscopy and trial of void in 1-2 weeks time. 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 Now with difficulty inserting common Larios catheter sizes of 16 and 18-Australian. Nursing reported catheter only advancing approximately 4 inches area this was grande ggestive of bulbar urethral stricture disease. Thus, I recommended attempt at 12-Australian Larios catheter which nursing staff placed without difficulty. Plan: Will arrange for outpatient cystoscopy and uroflow for further evaluation and management. Discharged home with current indwelling Larios. Exam Initial Vital Signs Temp Pulse Resp BP Pulse Ox 98.1 F 53 18 150/55 96 12/25/18 19:12 12/25/18 19:12 12/25/18 19:12 12/25/18 19:12 12/25/18 19:12 Urology Results - Labs 12/27/18 00:23 12/27/18 00:23 Abnormal lab results RBC 3.52 M/mcL (4.19-5.50) L 12/27/18 00:23 Hgb 10.3 g/dL (12.9-16.9) L 12/27/18 00:23 Hct 32.0 % (37.5-50.1) L 12/27/18 00:23 RDW 15.6 % (11.5-14.5) H 12/27/18 00:23 PT 46.7 Seconds (9.4-12.1) H* 12/27/18 00:23 INR 4.4 H* 12/26/18 01:12 ABG pCO2 34 mmHg (35-45) L 12/26/18 07:09 ABG pO2 78 mmHg (85-104) L 12/26/18 07:09 Sodium 134 mEq/L (136-145) L 12/25/18 19:21 Potassium 5.7 mEq/L (3.5-5.1) H 12/27/18 00:23 Carbon Dioxide 20 mEq/L (23-29) L 12/27/18 00:23 BUN 86 mg/dL (8-23) H 12/27/18 00:23 3.36 mg/dL (0.70-1.30) H 12/27/18 00:23 Est GFR ( Amer) 22 (> 60) L 12/27/18 00:23 Est GFR (Non-Af Amer) 18 (> 60) L 12/27/18 00:23 Glucose 176 mg/dL (70-105) H 12/27/18 00:23 POC Glucose 148 mg/dL (70-99) H 12/26/18 19:52 314 (280-300) H 12/27/18 00:23 B-Natriuretic Peptide 317 pg/mL (Less than 100) H 12/25/18 19:21 3.3 g/dL (3.5-5.7) L 12/25/18 19:21 4.2 g/dL (2.4-3.5) H 12/25/18 19:21 0.8 (1.1-2.2) L 12/25/18 19:21 Ur Leukocyte Esterase Trace (Negative) H 12/25/18 20:06 5-15 per hpf (0-3) H 12/25/18 20:06 3-5 per hpf (0-3) H 12/25/18 20:06 Ur Squamous Epith Cells Many per lpf (None-Few) H 12/25/18 20:06 Diabetes panel 12/26/18 12/27/18 Range/Units 21:26 00:23 Sodium 137 (136-145) mEq/L Potassium 6.0 H 5.7 H (3.5-5.1) mEq/L Chloride 107 (98-107) mEq/L Carbon Dioxide 20 L (23-29) mEq/L BUN 86 H (8-23) mg/dL Creatinine 3.36 H (0.70-1.30) mg/dL Glucose 176 H (70-105) mg/dL Calcium 8.7 (8.6-10.3) mg/dL Calcium panel 12/27/18 Range/Units 00:23 Calcium 8.7 (8.6-10.3) mg/dL Pituitary panel 12/26/18 12/27/18 Range/Units 21:26 00:23 Sodium 137 (136-145) mEq/L Potassium 6.0 H 5.7 H (3.5-5.1) mEq/L Chloride 107 (98-107) mEq/L Carbon Dioxide 20 L (23-29) mEq/L BUN 86 H (8-23) mg/dL Creatinine 3.36 H (0.70-1.30) mg/dL Glucose 176 H (70-105) mg/dL Calcium 8.7 (8.6-10.3) mg/dL Adrenal panel 12/26/18 12/27/18 Range/Units 21:26 00:23 Sodium 137 (136-145) mEq/L Potassium 6.0 H 5.7 H (3.5-5.1) mEq/L Chloride 107 (98-107) mEq/L Carbon Dioxide 20 L (23-29) mEq/L BUN 86 H (8-23) mg/dL Creatinine 3.36 H (0.70-1.30) mg/dL Glucose 176 H (70-105) mg/dL Calcium 8.7 (8.6-10.3) mg/dL All other labs normal.
[2018-12-27] MEDS: amLODIPine 5 MG TABLET PO SCH ×2 (11:46→20:21)
[2018-12-27] MEDS: Gabapentin 400 MG CAPSULE PO SCH ×2 (11:46→20:21)
[2018-12-27] MEDS: hydrALAZINE 10 MG TABLET PO SCH (20:21)
[2018-12-27] MEDS ORDERED: Latanoprost 2.5 ML BOTTLE BOTH EYES SCH (21:00)
--- NOTE | 2018-12-27 23:45 | Nephrology Progress Note ---
Date of Encounter: 12/27/18 Time of Encounter: 12:00 - Assessment and Plan (1) Acute kidney injury superimposed on CKD Current Visit: Yes Status: Acute SCr slightly improved at 3.36, GFR 18 UOp noted at 2525cc in the past 24hrs which is great Continue to avoid nephrotoxins if possible US of kidney showed asymmetric kidney sizes R>L (2) Hyperkalemia Current Visit: Yes Status: Acute Potassium noted at 5.7, improving. s/p kayexalate Continue renal diet (3) Allergic reaction Current Visit: Yes Status: Acute Bactrim discontinued Qualifiers: Qualified Code(s): T78.40XA - Allergy, unspecified, initial encounter (4) CHF (congestive heart failure) Current Visit: Yes Status: Acute Would discourage diuretics for now, UOP great Continue fluid restriction Suspect chronic LE edema with chronic venous changes as well Qualifiers: Qualified Code(s): I50.9 - Heart failure, unspecified Subjective Interval history: Pt seen and examined sitting up in chair, feeling better with improved breathing Objective - Vital Signs Vital signs: Vital Signs Temp Pulse Resp BP Pulse Ox 12/27/18 20:40 94 12/27/18 19:38 97.5 F L 63 18 158/61 95 12/27/18 16:28 98.0 F 66 16 166/67 98 12/27/18 11:13 98.0 F 70 16 169/63 93 12/27/18 08:00 98.2 F 71 16 145/62 94 12/27/18 06:26 22 93 12/27/18 04:55 98.5 F 68 18 152/68 93 12/27/18 03:05 146/50 12/27/18 02:12 164/66 12/27/18 01:23 98.5 F 66 18 185/62 93 Intake and Output 12/27/18 12/27/18 12/27/18 07:59 15:59 23:59 Intake Total 140 / 260 120 / 260 Output Total 1100 / 2300 1200 / 2300 Balance -1100 / -2040 140 / -2040 -1080 / -2040 Intake: Oral 140 / 260 120 / 260 Output: Urine 1200 / 1200 Catheter 1100 / 1100 Other: Meal Breakfast Percent of Meal Consumed 15% Weight 177.2 kg Blood Glucose* 179 188 311 Patient Weight 12/27/18 23:59 Weight 177.2 kg - General Appearance General appearance: Present: chronically ill (NAD) EENT: Present: ATNC, mucous membranes moist Neck: Present: no JVD, supple Additional Comments: good areation ant bilat Cardiology: Present: edema (LE bilat), normal S1, normal S2 Gastrointestinal: Present: no tenderness, no guarding, obese Integumentary: Present: hyperpigmentation, chronic venous stasis, hyperkeratosis Neurologic: Present: no focal deficit Musculoskeletal: Present: no deformities Psychiatric: Present: mood/affect appropriate - Lab 12/27/18 00:23 12/27/18 00:23 Consult Discharge Plan - Plan [facility]errals: [facility] [Primary Care Provider] -
[2018-12-28] MEDS: Gabapentin 400 MG CAPSULE PO SCH (08:28)
[2018-12-28] MEDS: Insulin LISPRO 300 UNITS/3 ML VIAL SQ SCH ×2 (08:29→11:51)
[2018-12-28] MEDS: hydrALAZINE 10 MG TABLET PO SCH (08:29)
[2018-12-28] MEDS: amLODIPine 5 MG TABLET PO SCH (08:29)
[2018-12-28] MEDS ORDERED: Cholecalciferol (D-3) 1,000 UNIT TABLET PO SCH (09:00)
[2018-12-28] MEDS ORDERED: Cyanocobalamin (B-12) 1,000 MCG TABLET PO SCH (09:00)
[2018-12-28 09:11] LABS: Basophils % 0.3 %; Eosinophils # 0.4 K/mcL (0.0-0.6); Eosinophils % 4.6 %; Hematocrit 32.7 % (37.5-50.1); Hemoglobin 10.5 g/dL (12.9-16.9); Immature Granulocytes % 0.3 % (0-4); Lymphocytes # 1.2 K/mcL (0.6-4.6); Lymphocytes % 14.9 %; Mean Corpuscular HGB Conc 32.1 g/dL (31.6-35.5); Mean Corpuscular Hemoglobin 29.5 pg (28.0-33.3); Mean Corpuscular Volume 91.9 fL (83.0-100.0); Mean Platelet Volume 11.8 fL (9.4-12.4); Monocytes # 0.7 K/mcL (0.0-1.3); Monocytes % 9.2 %; Neutrophils # 5.6 K/mcL (1.6-8.9); Platelet Count 183 K/mcL (140-400); Red Blood Count 3.56 M/mcL (4.19-5.50); Red Cell Distribution Width 15.4 % (11.5-14.5); Segmented Neutrophils % 70.7 %
[2018-12-28 09:30] LABS: Calcium 9.2 mg/dL (8.6-10.3); Potassium 5.1 mEq/L (3.5-5.1)
[2018-12-28 09:45] LABS: INR 4.3
[2018-12-28 09:47] LABS: Prothrombin Time 48.8 Seconds (9.4-12.1)
[2018-12-28 12:08] LABS: Calcium 9.3 mg/dL (8.6-10.3); Potassium 4.8 mEq/L (3.5-5.1)
--- NOTE | 2018-12-28 12:42 | Nephrology Progress Note ---
Date of Encounter: 12/28/18 Time of Encounter: 10:40 - Assessment and Plan (1) Acute kidney injury superimposed on CKD Current Visit: Yes Status: Acute SCr improved from 3.36 down to 2.85 today, GFR improved from 18 to 22 today. UOp noted at 2300cc in the past 24hrs which is good Continue to avoid nephrotoxins if possible US of kidney showed asymmetric kidney sizes R>L (2) Hyperkalemia Current Visit: Yes Status: Resolved Potassium dropped from 5.7 down to 4.8. - Continue renal diet. (3) Allergic reaction Current Visit: Yes Status: Acute Bactrim discontinued. Qualifiers: Qualified Code(s): T78.40XA - Allergy, unspecified, initial encounter (4) CHF (congestive heart failure) Current Visit: Yes Status: Acute Would discourage diuretics for now, UOP great Continue fluid restriction Suspect chronic LE edema with chronic venous changes as well Qualifiers: Qualified Code(s): I50.9 - Heart failure, unspecified Subjective Interval history: When seed today, patient says the swelling in his legs has remained the same. He denies any chest pain, SOB, or coughing. He says that occasionally is is able to walk around with his walker. He denies any abdominal pain, nausea, or vomiting. Objective - Vital Signs Vital signs: Vital Signs Temp Pulse Resp BP Pulse Ox 12/28/18 11:42 98.6 F 61 17 153/61 93 12/28/18 07:42 98.6 F 61 18 149/66 93 12/28/18 03:50 98.2 F 91 17 125/60 97 12/27/18 23:59 97.9 F 53 16 136/64 98 12/27/18 20:40 94 12/27/18 19:38 97.5 F L 63 18 158/61 95 12/27/18 16:28 98.0 F 66 16 166/67 98 Intake and Output 12/27/18 12/28/18 12/28/18 23:59 07:59 15:59 Intake Total 120 / 260 Output Total 1200 / 2300 850 / 850 Balance -1080 / -2040 -850 / -850 Intake: Oral 120 / 260 Output: Urine 1200 / 1200 Catheter 850 / 850 Other: Blood Glucose* 311 153 211 - General Appearance General appearance: Present: appears started age, obese EENT: Present: mucous membranes moist Neck: Present: no JVD Respiratory: Present: clear Cardiology: Present: no murmurs, no rub, no gallops, regular rate, regular rhythm, normal S1, normal S2 Gastrointestinal: Present: normoactive bowel sounds, no tenderness, no guarding, no organomegaly, no masses Integumentary: Present: warm and dry, erythema (RLE) Neurologic: Present: no focal deficit, alert and oriented x3 Musculoskeletal: Present: no cyanosis Additional Comments: LE: +3 b/l pitting edema. Normal capillary refill. No calf tenderness. Psychiatric: Present: mood/affect appropriate, cooperative - Lab 12/28/18 08:50 12/28/18 11:25 Most recent lab results 12/28/18 12/28/18 08:50 11:25 Calcium 9.2 9.3 Consult Discharge Plan - Plan Referrals: [facility] [Primary Care Provider] -
--- NOTE | 2018-12-28 14:47 | Discharge Summary ---
<Tam Dover - Last Filed: 12/28/18 15:53> Orders not resulted at time of discharge: Pending orders 12/26/18 10:13 FFP [PLASMA] [BBK] Stat Type and Screen [BBK] Stat 12/27/18 04:00 Eosinophil,Urine [URIN] AM 0400 12/29/18 04:00 PT/INR [Prothrombin Time INR] [COAG] AM 0400 12/30/18 04:00 PT/INR [Prothrombin Time INR] [COAG] AM 0400 12/31/18 04:00 PT/INR [Prothrombin Time INR] [COAG] AM 0400 Date of Encounter: 12/28/18 - Discharge Diagnosis (1) Allergic reaction to sulfonamide Priority: Primary Status: Acute (2) Venous stasis dermatitis of both lower extremities Priority: Secondary Status: Chronic (3) CHF (congestive heart failure) Priority: Secondary Status: Suspected Qualifiers: Heart failure type: diastolic Heart failure chronicity: chronic Qualified Code(s): I50.32 - Chronic diastolic (congestive) heart failure (4) CKD (chronic kidney disease) Priority: Secondary Status: Chronic Qualifiers: Chronic kidney disease stage: stage 3 (moderate) Qualified Code(s): N18.3 - Chronic kidney disease, stage 3 (moderate) (5) Urinary retention with incomplete bladder emptying Priority: Secondary Status: Chronic (6) COPD (chronic obstructive pulmonary disease) Priority: Secondary Status: Chronic Qualifiers: COPD type: emphysema Emphysema type: other Qualified Code(s): J43.8 - Other emphysema (7) Diabetes Priority: Secondary Status: Chronic Qualifiers: Diabetes mellitus type: type 2 Diabetes mellitus complication status: with neurologic complications Diabetes mellitus complication detail: with unspecified neuropathy Qualified Code(s): E11.40 - Type 2 diabetes mellitus with diabetic neuropathy, unspecified (8) Atrial fibrillation Priority: Secondary Status: Chronic Qualifiers: Atrial fibrillation type: chronic Qualified Code(s): I48.2 - Chronic atrial fibrillation (9) HTN (hypertension) Priority: Secondary Status: Chronic Qualifiers: Hypertension type: essential hypertension Qualified Code(s): I10 - Essential (primary) hypertension (10) Hyperkalemia Priority: Secondary Status: Resolved (11) Morbid obesity with BMI of 50.0-59.9, adult Priority: Secondary Status: Chronic Hospital course: Mr. Duque is a 73 year old male - Time Spent with Patient Total time spent providing and/or coordinating discharge services:41min - Discharge Medications Prescriptions: Continued Allopurinol [Zyloprim 100 MG] 200 mg PO HS Allopurinol [Zyloprim 100 MG] 100 mg PO QAM amLODIPine [Norvasc] 5 mg PO BID Atenolol [Tenormin] 25 mg PO BID Brimonidine 0.2% [Alphagan] 1 drop BOTH EYES BID Cholecalciferol (D-3) [Vitamin D] 2,000 unit PO DAILY Cyanocobalamin (Vitamin B-12) [Vitamin B-12] 500 mcg PO DAILY Gabapentin [Neurontin] 800 mg PO BID hydrALAZINE [HydrALAZINE] 10 mg PO BID Latanoprost [Xalatan] 1 drop BOTH EYES HS Phenazopyridine HCl 200 mg PO TID Simvastatin [Zocor] 20 mg PO HS Subcutaneous Insulin Pump [T:Slim] 1 each MC AD Tamsulosin [Flomax] 0.4 mg PO DAILY Warfarin [Coumadin] 5 mg PO SUMOTUWETHSA OxyCODONE Immed Rel [Roxicodone 5 MG] 10 mg PO Q6HR Discontinued Furosemide [Lasix] 80 mg PO BID Spironolactone [Aldactone] 25 mg PO BID Warfarin [Coumadin] 7.5 mg PO FR Home Medications: Allopurinol [Zyloprim 100 MG] 100 mg PO QAM 12/26/18 [History] Allopurinol [Zyloprim 100 MG] 200 mg PO HS 12/26/18 [History] Atenolol [Tenormin] 25 mg PO BID 12/26/18 [History] Brimonidine 0.2% [Alphagan] 1 drop BOTH EYES BID 12/26/18 [History] Cholecalciferol (D-3) [Vitamin D] 2,000 unit PO DAILY 12/26/18 [History] Cyanocobalamin (Vitamin B-12) [Vitamin B-12] 500 mcg PO DAILY 12/26/18 [History] Gabapentin [Neurontin] 800 mg PO BID 12/26/18 [History] Latanoprost [Xalatan] 1 drop BOTH EYES HS 12/26/18 [History] OxyCODONE Immed Rel [Roxicodone 5 MG] 10 mg PO Q6HR 12/26/18 [History] Phenazopyridine HCl 200 mg PO TID 12/26/18 [History] Simvastatin [Zocor] 20 mg PO HS 12/26/18 [History] Subcutaneous Insulin Pump [T:Slim] 1 each MC AD 12/26/18 [History] Tamsulosin [Flomax] 0.4 mg PO DAILY 12/26/18 [History] Warfarin [Coumadin] 5 mg PO SUMOTUWETHSA 12/26/18 [History] amLODIPine [Norvasc] 5 mg PO BID 12/26/18 [History] hydrALAZINE [HydrALAZINE] 10 mg PO BID 12/26/18 [History] Allergies/Adverse Reactions: Allergy/AdvReac Type Severity Reaction Status Date / Time ciprofloxacin [From Cipro] AdvReac Nausea Verified 12/26/18 12:11 morphine AdvReac Nausea Verified 12/26/18 12:11 Saxagliptin [From Onglyza] AdvReac Nausea Verified 12/26/18 12:11 sulfamethoxazole AdvReac Nausea Verified 12/26/18 12:11 [From Bactrim] trimethoprim [From Bactrim] AdvReac Nausea Verified 12/26/18 12:11 Date of admission: 12/26/18 04:08 [facility] care physician: [facility] Consults: 12/26/18 01:07 Consult to Nephrology [CONS] Routine Consulting Provider: [facility]/FAWN/HILLARY/VÍCTOR Reason for Consult: CKD with GFR of 16 Call Completed: No 12/26/18 09:42 Consult to Nurse Navigator [CONS] Routine Comment: chf 12/26/18 18:05 Consult to Urology [CONS] Routine Consulting Provider: Urology Cathy Reason for Consult: edema to scrotum, cannot pass velasco Call Completed: Yes - Constitutional Vitals: Temp Pulse Resp BP Pulse Ox 98.6 F 61 17 153/61 93 12/28/18 11:42 12/28/18 11:42 12/28/18 11:42 12/28/18 11:42 12/28/18 11:42 - Patient Status Disposition: Home, Self-Care Condition: Fair - Discharge Instructions Instructions: Acute Kidney Injury (DC), Antibiotic Medication Allergy (DC), Stasis Dermatitis (DC) Follow Up With: Rosales Burger [Partnered Physician] - 01/03/19 1:30 pm [facility] [Primary Care Provider] - 01/04/19 2:15 pm Additional Instructions: - Please schedule follow up appointment with your primary care provider within 7 days of discharge. - Please follow up with aCthy Urology 1 week after discharge. - Attending Attestation I examined this patient and my medical decision-making was reviewed with the Resident Physician on 12/28/18. I agree with the documented findings, disposition and treatment plan as described except to the extent set forth below. Mr Duque has been admitted due to allergic reaction to Bactrim. He was also noted to have acute renal failure and urinary retention. His potassium was elevated but has improved. He has improved and his creatinine is slowly improving. His K has normalized. He is ready for discharge home. He needs to keep velasco and follow with urology. Exam Alert Comfortable Mucus membranes dry Heart not tachy No wheeze abd soft Moves all extremitites Plan D/C home today Continue velasco No Lasix or Spirinolactone (though can restart Lasix if swelling returns) Follow up with PCP next week and have lab rechecked Follow up with renal Further diagnoses and plan as above D/C time 41min <Toya Mcgraw - Last Filed: 12/29/18 00:35> Orders not resulted at time of discharge: Pending orders 12/26/18 10:13 FFP [PLASMA] [BBK] Stat Type and Screen [BBK] Stat 12/27/18 04:00 Eosinophil,Urine [URIN] AM 0400 12/29/18 04:00 PT/INR [Prothrombin Time INR] [COAG] AM 04012/30/18 04:00 PT/INR [Prothrombin Time INR] [COAG] AM 0400 12/31/18 04:00 PT/INR [Prothrombin Time INR] [COAG] AM 040 Date of Encounter: 12/29/18 Time of Encounter: 10:10 - Discharge Diagnosis (1) Hyperkalemia Priority: Secondary Status: Resolved (2) Acute kidney injury superimposed on CKD Priority: Secondary Status: Acute (3) Urinary retention with incomplete bladder emptying Priority: Secondary Status: Chronic (4) Atrial fibrillation Priority: Secondary Status: Chronic Qualifiers: Atrial fibrillation type: chronic (5) HTN (hypertension) Priority: Secondary Status: Chronic Qualifiers: Hypertension type: essential hypertension Qualified Code(s): I10 - Essential (primary) hypertension (6) Diabetes Priority: Secondary Status: Chronic Qualifiers: Diabetes mellitus type: type 2 Diabetes mellitus complication status: with neurologic complications Diabetes mellitus complication detail: with unspecified neuropathy Qualified Code(s): E11.40 - Type 2 diabetes mellitus with diabetic neuropathy, unspecified (7) Venous stasis dermatitis of both lower extremities Priority: Secondary Status: Chronic (8) COPD (chronic obstructive pulmonary disease) Priority: Secondary Status: Chronic Qualifiers: COPD type: emphysema Emphysema type: other Hospital course: Mr. Duque is a 73 year old male Med changes-- stopped lasix, stopped aldactone, changed warfarin Wednesday dose Discharge discussed with: patient Time spent discussing smoking cessation with patient: 3 to 10 minutes - Time Spent with Patient Total time spent providing and/or coordinating discharge services: Date of admission: 12/26/18 04:08 Primary care physician: [facility] Consults: 12/26/18 01:07 Consult to Nephrology [CONS] Routine Consulting Provider: Kidney Cathy/FAWN/HILLARY/VÍCTOR Reason for Consult: CKD with GFR of 16 Call Completed: No 12/26/18 09:42 Consult to Nurse Navigator [CONS] Routine Comment: chf 12/26/18 18:05 Consult to Urology [CONS] Routine Consulting Provider: Urology Cathy Reason for Consult: edema to scrotum, cannot pass velasco Call Completed: Yes Discharging clinician: Toya Mcgraw Anticipated date of discharge: 12/28/18 - Constitutional Vitals: Temp Pulse Resp BP Pulse Ox 98.6 F 61 17 153/61 93 12/28/18 11:42 12/28/18 11:42 12/28/18 11:42 12/28/18 11:42 12/28/18 11:42 General appearance: Present: A&O X 1 - Patient Status Functional capacity at discharge: independent ambulation Overall status at discharge: patient is progressing back to baseline - Diet and Activity Activity: increase activity as tolerated Diet: diabetic diet
[2018-12-28 16:00] VITALS: BP 170/69
--- NOTE | 2018-12-29 13:29 | Discharge Summary ---
- NOTES TO OUTPATIENT PROVIDER Notes to Outpatient Provider: INR remains supratherapeutic 4.1. Serum creatinine decreasing Orders not resulted at time of discharge: Pending orders 12/26/18 10:13 FFP [PLASMA] [BBK] Stat Type and Screen [BBK] Stat Date of Encounter: 12/29/18 Time of Encounter: 09:25 - Discharge Diagnosis (1) Acute kidney injury superimposed on CKD Priority: Primary Status: Acute (2) Allergic reaction to sulfonamide Priority: Primary Status: Acute (3) CHF (congestive heart failure) Priority: Secondary Status: Suspected Qualifiers: Heart failure type: diastolic Heart failure chronicity: chronic Qualified Code(s): I50.32 - Chronic diastolic (congestive) heart failure (4) Diabetes Priority: Secondary Status: Chronic Qualifiers: Diabetes mellitus type: type 2 Diabetes mellitus complication status: with neurologic complications Diabetes mellitus complication detail: with unspecified neuropathy Qualified Code(s): E11.40 - Type 2 diabetes mellitus with diabetic neuropathy, unspecified (5) Atrial fibrillation Priority: Secondary Status: Chronic Qualifiers: Atrial fibrillation type: chronic Qualified Code(s): I48.2 - Chronic atrial fibrillation (6) HTN (hypertension) Priority: Secondary Status: Chronic Qualifiers: Hypertension type: essential hypertension Qualified Code(s): I10 - Essential (primary) hypertension (7) Hyperkalemia Priority: Secondary Status: Resolved (8) Venous stasis dermatitis of both lower extremities Priority: Secondary Status: Chronic (9) COPD (chronic obstructive pulmonary disease) Priority: Secondary Status: Chronic Qualifiers: COPD type: emphysema Emphysema type: other Qualified Code(s): J43.8 - Other emphysema (10) Urinary retention with incomplete bladder emptying Priority: Secondary Status: Chronic (11) Morbid obesity with BMI of 50.0-59.9, adult Priority: Secondary Status: Chronic Hospital course: Mr. Duque is a 73 year old male with history of gout, CKD, alcoholic cirrhosis of the liver, CHF, atrial fibrillation on Coumadin, COPD, diabetes who presented to [facility] with concerns of allergy to recent antibiotic medication he was placed on. The patient was apparently recently discharged from the ID at a [facility] and [place] where he had been admitted for treatment of CHF and concern for bilateral lower extremity cellulitis infection. At that time he was treated with Bactrim despite a known allergy to sulfa drugs. The patient apparently has had a persistent lower extremity erythema and edema for quite some time, however when he was treated with Bactrim he became erythematous and her reticulocyte all over his body and presented for treatment to [facility]. Upon presentation, the patient was found to have a severe COLIN with a serum creatinine of 3.67, estimated GFR 16 and a resulting serum potassium of 6.5 with a BUNs of 93. At that time he did have an EKG which was not significant for peak T waves, however did have a nonspecific interventricular conduction delay. The patient was given fluids and albumin, his nephrotoxic agents including Lasix and spironolactone were held and he was worked up for [place] I. Consideration for hemodialysis was made, however it was decided that he did not need hemodialysis at this time. He was found to have some urinary retention for which urology was consulted and recommended indwelling Velasco catheter with use of Flomax for outpatient follow-up. The patient continued to improve symptomatically while at the hospital, and his pruritus vanished following his first night here. In addition of this, his labs began to improve over the course of his hospital stay, and his potassium self corrected. Upon discussion with nephrology, we felt comfortable discharging the patient to home with outpatient follow-up and repeat labs in 2 weeks. The patient will be discharged home and he understands this course of treatment. Discharge discussed with: patient, family, nurse, social work, case management, institutional nutrition consultant - Time Spent with Patient Total time spent providing and/or coordinating discharge services: - Discharge Medications Prescriptions: Continued Allopurinol [Zyloprim 100 MG] 200 mg PO HS Allopurinol [Zyloprim 100 MG] 100 mg PO QAM amLODIPine [Norvasc] 5 mg PO BID Atenolol [Tenormin] 25 mg PO BID Brimonidine 0.2% [Alphagan] 1 drop BOTH EYES BID Cholecalciferol (D-3) [Vitamin D] 2,000 unit PO DAILY Cyanocobalamin (Vitamin B-12) [Vitamin B-12] 500 mcg PO DAILY Gabapentin [Neurontin] 800 mg PO BID hydrALAZINE [HydrALAZINE] 10 mg PO BID Latanoprost [Xalatan] 1 drop BOTH EYES HS Phenazopyridine HCl 200 mg PO TID Simvastatin [Zocor] 20 mg PO HS Subcutaneous Insulin Pump [T:Slim] 1 each MC AD Tamsulosin [Flomax] 0.4 mg PO DAILY Warfarin [Coumadin] 5 mg PO SUMOTUWETHSA OxyCODONE Immed Rel [Roxicodone 5 MG] 10 mg PO Q6HR Discontinued Furosemide [Lasix] 80 mg PO BID Spironolactone [Aldactone] 25 mg PO BID Warfarin [Coumadin] 7.5 mg PO FR Home Medications: Allopurinol [Zyloprim 100 MG] 100 mg PO QAM 12/26/18 [History] Allopurinol [Zyloprim 100 MG] 200 mg PO HS 12/26/18 [History] Atenolol [Tenormin] 25 mg PO BID 12/26/18 [History] Brimonidine 0.2% [Alphagan] 1 drop BOTH EYES BID 12/26/18 [History] Cholecalciferol (D-3) [Vitamin D] 2,000 unit PO DAILY 12/26/18 [History] Cyanocobalamin (Vitamin B-12) [Vitamin B-12] 500 mcg PO DAILY 12/26/18 [History] Gabapentin [Neurontin] 800 mg PO BID 12/26/18 [History] Latanoprost [Xalatan] 1 drop BOTH EYES HS 12/26/18 [History] OxyCODONE Immed Rel [Roxicodone 5 MG] 10 mg PO Q6HR 12/26/18 [History] Phenazopyridine HCl 200 mg PO TID 12/26/18 [History] Simvastatin [Zocor] 20 mg PO HS 12/26/18 [History] Subcutaneous Insulin Pump [T:Slim] 1 each MC AD 12/26/18 [History] Tamsulosin [Flomax] 0.4 mg PO DAILY 12/26/18 [History] Warfarin [Coumadin] 5 mg PO SUMOTUWETHSA 12/26/18 [History] amLODIPine [Norvasc] 5 mg PO BID 12/26/18 [History] hydrALAZINE [HydrALAZINE] 10 mg PO BID 12/26/18 [History] Allergies/Adverse Reactions: Allergy/AdvReac Type Severity Reaction Status Date / Time ciprofloxacin [From Cipro] AdvReac Nausea Verified 12/26/18 12:11 morphine AdvReac Nausea Verified 12/26/18 12:11 Saxagliptin [From Onglyza] AdvReac Nausea Verified 12/26/18 12:11 sulfamethoxazole AdvReac Nausea Verified 12/26/18 12:11 [From Bactrim] trimethoprim [From Bactrim] AdvReac Nausea Verified 12/26/18 12:11 Date of admission: 12/26/18 04:08 [facility] care physician: [facility] Consults: 12/26/18 01:07 Consult to Nephrology [CONS] Routine Consulting Provider: Kidney Cathy/FAWN/HILLARY/VÍCTOR Reason for Consult: CKD with GFR of 16 Call Completed: No 12/26/18 09:42 Consult to Nurse Navigator [CONS] Routine Comment: chf 12/26/18 18:05 Consult to Urology [CONS] Routine Consulting Provider: Urology Cathy Reason for Consult: edema to scrotum, cannot pass velasco Call Completed: Yes Discharging clinician: Dl Henry Anticipated date of discharge: 12/29/18 - Constitutional Vitals: Temp Pulse Resp BP Pulse Ox 98.7 F 66 18 170/69 93 12/28/18 15:55 12/28/18 15:55 12/28/18 15:55 12/28/18 15:55 12/28/18 15:55 General appearance: Present: A&O X 1 Exam: General: No acute distress, sleepy HEENT: head normocephalic/atraumatic, EOMI, PERRL, sclera anicteric, moist mucus membranes, Neck: Supple Cardio: RRR, no murmurs, +S1/S2 Pulm: CTAB, no wheezing, rhonchi, rales. Normal respiratory effort. Abdomen: soft, nontender, BS+, obese Extremities: BLE 3+ pitting edema, venous stasis discoloration Neuro: AAOx3, no focal deficit, no speech deficit, CN II-XII grossly intact, moves all 4 extremities spontaneously MSK: Strength 5/5 throughout, no visible deformities Skin: venous stasis dermatitis bilaterally, cobblestone appearance, no discharge Psych: Appropriate mood and affect. Answers questions appropriately. Cooperative with exam - Patient Status Disposition: Home, Self-Care Condition: Fair Functional capacity at discharge: uses cane/walker Overall status at discharge: patient is progressing back to baseline - Discharge Instructions Instructions: Acute Kidney Injury (DC), Antibiotic Medication Allergy (DC), Stasis Dermatitis (DC) Follow Up With: Rosales Burger [Partnered Physician] - 01/03/19 1:30 pm [facility] [Primary Care Provider] - 01/04/19 2:15 pm Additional Instructions: - Please schedule follow up appointment with your primary care provider within 7 days of discharge. - Please follow up with [facility] 1 week after discharge. - Diet and Activity Activity: resume usual activities as tolerated Diet: diabetic diet
== END 2018-12-28 16:38 | disposition home or self-care (01) | DRG 683 ==
LOC: 2ANU 19:10 → EMEROOARM 19:10 → 2ANU 22:32 → SUATTDRO 12-26 04:08
PROVIDERS: ADMIT Family Medicine; ATTEND Internal Medicine

== ENCOUNTER 2019-01-21 17:42 | Inpatient (IN) ==
--- NOTE | 2019-01-21 18:04 | Emergency Department Note ---
Disposition Clinical Impression: Urinary retention, Acute kidney injury superimposed on chronic kidney disease, Uremia Congestive heart failure Qualifiers: Heart failure type: unspecified Heart failure chronicity: unspecified Qualified Code(s): I50.9 - Heart failure, unspecified Disposition: Admitted As Inpatient Condition: Fair Time of Disposition: 21:31 General Adult HPI - General Stated complaint: Lethargic Time Seen by Provider: 01/21/19 17:51 Source: patient, EMS Mode of arrival: EMS Limitations: no limitations Nursing Notes Reviewed: Yes Vital Signs Reviewed: Yes - History of Present Illness HPI Narrative: 73-year-old male with a history of CHF, CABG A. fib on coumadin presents for evaluation of weakness and diffuse swelling primarily affecting the scrotum and dependent areas such as the legs. Patient as well as family bedside report generalized weakness over the past couple days. Patient did have recent Larios catheter removed a couple days ago. Since the patient had difficulty urinating. Patient denies any chest pain but notes some shortness of breath with a cough. No fevers. Patient states he has had scrotal swelling. Also notes lower extremity swelling. Patient's on Lasix 80 mg in the morning and 80 mg at night. Patient does live at home. Pain Scale: 10 - Related Data Home Medications Medication Instructions Recorded Confirmed Allopurinol [Zyloprim 100 MG] 100 mg PO QA 12/26/18 12/26/18 Allopurinol [Zyloprim 100 MG] 200 mg PO HS 12/26/18 12/26/18 Atenolol [Tenormin] 25 mg PO BID 12/26/18 12/26/18 Brimonidine 0.2% [Alphagan] 1 drop BOTH EYES BID 12/26/18 12/26/18 Cholecalciferol (D-3) [Vitamin D] 2,000 unit PO DAILY 12/26/18 12/26/18 Cyanocobalamin (Vitamin B-12) 500 mcg PO DAILY 12/26/18 12/26/18 [Vitamin B-12] Gabapentin [Neurontin] 800 mg PO BID 12/26/18 12/26/18 Latanoprost [Xalatan] 1 drop BOTH EYES HS 12/26/18 12/26/18 OxyCODONE Immed Rel [Roxicodone 5 10 mg PO Q6HR 12/26/18 12/26/18 MG] Phenazopyridine HCl 200 mg PO TID 12/26/18 12/26/18 Simvastatin [Zocor] 20 mg PO HS 12/26/18 12/26/18 Subcutaneous Insulin Pump [T:Slim] 1 each MC AD 12/26/18 12/26/18 Tamsulosin [Flomax] 0.4 mg PO DAILY 12/26/18 12/26/18 Warfarin [Coumadin] 5 mg PO SUMOTUWETHSA 12/26/18 12/26/18 amLODIPine [Norvasc] 5 mg PO BID 12/26/18 12/26/18 hydrALAZINE [HydrALAZINE] 10 mg PO BID 12/26/18 12/26/18 Allergies Allergy/AdvReac Type Severity Reaction Status Date / Time ciprofloxacin [From Cipro] AdvReac Nausea Verified 12/26/18 12:11 morphine AdvReac Nausea Verified 12/26/18 12:11 Saxagliptin [From Onglyza] AdvReac Nausea Verified 12/26/18 12:11 sulfamethoxazole AdvReac Nausea Verified 12/26/18 12:11 [From Bactrim] trimethoprim [From Bactrim] AdvReac Nausea Verified 12/26/18 12:11 All systems ED: reviewed and negative except as stated. Constitutional: Denies: fever Respiratory: Reports: cough, dyspnea Gastrointestinal: Denies: abdominal pain, nausea, vomiting Past Medical History - Past Medical History Source: patient Medical history: Reports: arthritis, atrial fibrillation, cirrhosis, CHF, COPD, diabetes, glaucoma, hypertension, renal disease Surgical history: Reports: knee replacement Psychiatric history: Reports: PTSD - Social History Smoking Status: Former smoker Smokeless Tobacco Status: No Alcohol use: Reports: none Drug use: Reports: none Physical Exam - General Limitations: no limitations General appearance: alert, other (Appears chronically ill) - Head Head exam: atraumatic, normocephalic, normal inspection - Eye Eye exam: Present: normal appearance, PERRL, EOMI - ENT ENT exam: normal exam, mucous membranes moist - Neck Neck exam: Present: normal inspection - Chest Chest inspection: Present: normal inspection - Respiratory Respiratory exam: Present: other (Bibasilar diminished). Absent: respiratory distress - Cardiovascular Cardiovascular exam: Present: regular rate, normal rhythm, normal heart sounds - Abdominal Exam Abdominal exam: Present: soft, Non-Tender. Absent: guarding, rebound - Male exam: Present: scrotal swelling. Absent: erythema, testicular tenderness - Extremities Exam Extremities exam: Present: normal inspection, pedal edema (3-4+ with some weeping and drainage. There is no crepitus.) - Back Exam Back exam: Present: normal inspection - Neurological Exam Neurological exam: Present: alert, oriented X3, CN II-XII intact - Skin Skin exam: Present: warm, dry, intact, normal color Course Course Narrative: Patient does appear to clinically have CHF with evidence of volume overload. Patient will get basic pulmonary evaluation chest x-ray. Patient also get fully catheter placed. Patient likely is giving his history of heart failure. - Reevaluation(s) Reevaluation #1: Patient seen sleeping resting comfortably. Also we will cancer unsuccessful at Larios catheter placement. Patient does have over 380 mL of urine in his bladder. We will attempt a Larios catheter. Time: 19:22 Reevaluation #2: Attempted multiple times daily 18-[place]. Patient was edematous and did retract some of the fluid from this pain is with pressure however was unsuccessful advancing past the prostate. Was meeting resistance. Will talk with urology for Larios placement. Time: 20:02 Reevaluation #3: Urology did place Larios catheter the ED. Time: 21:27 - Consultations Consultation #1: Consult placed for urology for Larios catheter Time: 20:15 Vital Signs Temperature 98.3 F 01/21/19 17:48 Pulse Rate 61 01/21/19 17:48 Respiratory Rate 18 01/21/19 17:48 Blood Pressure 164/76 01/21/19 17:48 O2 Sat by Pulse Oximetry 93 01/21/19 17:48 Temperature 98.3 F 01/21/19 17:48 Pulse Rate 61 01/21/19 17:48 Respiratory Rate 18 01/21/19 17:48 Blood Pressure 164/76 01/21/19 17:48 O2 Sat by Pulse Oximetry 93 01/21/19 17:48 Oxygen Delivery Oxygen Delivery Room Air Medical Decision Making - MDM Narrative Medical decision making narrative: Patient seen and examined. Patient presented initially complaints of urinary retention with source of breath. Patient is complaining of swelling. On exam the patient does appear fluid overloaded. Patient is on Lasix. Patient had developed time with Larios catheter placement urology consult a Larios catheter placement in the ED. Patient does have acute on chronic kidney disease and uremia but has been uremic in the past. 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 Patient was not given any diuretics in the ED given his worsening kidney function as well as no clearly) x-ray. Patient was not started on any antibiotics as we do not have urine and there is no clear source. Patient will be admitted to hospital service for congestive heart failure, fluid overload, acute on chronic kidney disease with uremia. Patient is still continue to increase urine and is having some overflow incontinence. Patient was also noted be subtherapeutic on his INR but does not show any evidence of bleeding. Patient was not reversed. Patient's states that he is a full code. - Lab Data Lab results reviewed: Yes I reviewed the patient's lab results. Result diagrams: 01/21/19 19:27 01/21/19 19:27 Lab Results 01/21/19 01/21/19 01/21/19 Range/Units 19:27 19:27 19:27 WBC 8.6 (4.3-11.1) K/mcL RBC 3.40 L (4.19-5.50) M/mcL Hgb 9.6 L (12.9-16.9) g/dL Hct 30.9 L (37.5-50.1) % MCV 90.9 (83.0-100.0) fL MCH 28.2 (28.0-33.3) pg MCHC 31.1 L (31.6-35.5) g/dL RDW 15.4 H (11.5-14.5) % Plt Count 232 (140-400) K/mcL MPV 11.0 (9.4-12.4) fL Immature Gran % 0.3 (0-4) % Seg Neutrophils % 72.4 % Lymphocytes % 14.1 % Monocytes % 8.6 % Eosinophils % 4.3 % Basophils % 0.3 % Neutrophils # 6.2 (1.6-8.9) K/mcL Lymphocytes # 1.2 (0.6-4.6) K/mcL Monocytes # 0.7 (0.0-1.3) K/mcL Eosinophils # 0.4 (0.0-0.6) K/mcL Basophils # 0.0 (0.0-0.2) K/mcL PT 46.2 H* (9.4-12.1) Seconds INR 4.1 APTT 46.5 H (26.0-36.0) Seconds Sodium 134 L (136-145) mEq/L Potassium 5.1 (3.5-5.1) mEq/L Chloride 103 (98-107) mEq/L Carbon Dioxide 22 L (23-29) mEq/L BUN 91 H (8-23) mg/dL Creatinine 2.54 H (0.70-1.30) mg/dL Est GFR ( Amer) 30 L (> 60) Est GFR (Non-Af Amer) 25 L (> 60) BUN/Creatinine Ratio 36 H (6-26) Glucose 60 L (70-105) mg/dL Calculated Osmolality 304 H (280-300) Lactic Acid (0.5-2.2) mmol/L Calcium 8.9 (8.6-10.3) mg/dL Phosphorus 5.2 H (2.7-4.5) mg/dL Magnesium 2.8 H (1.6-2.6) mg/dL Total Bilirubin 0.8 (0.3-1.0) mg/dL Direct Bilirubin 0.3 H (0.0-0.2) mg/dL Indirect Bilirubin 0.5 (0.0-1.2) mg/dL AST 25 (13-39) Units/L ALT 23 (7-52) Units/L Alkaline Phosphatase 87 (34-104) Units/L Troponin I < 0.03 (< 0.04) ng/mL B-Natriuretic Peptide (Less than 100) pg/mL Serum Total Protein 7.4 (6.4-8.9) g/dL Albumin 3.1 L (3.5-5.7) g/dL Globulin 4.3 H (2.4-3.5) g/dL Albumin/Globulin Ratio 0.7 L (1.1-2.2) Lipase 22 (11-82) Units/L Random Cortisol 11.7 mcg/dl 01/21/19 01/21/19 Range/Units 19:27 19:27 WBC (4.3-11.1) K/mcL RBC (4.19-5.50) M/mcL Hgb (12.9-16.9) g/dL Hct (37.5-50.1) % MCV (83.0-100.0) fL MCH (28.0-33.3) pg MCHC (31.6-35.5) g/dL RDW (11.5-14.5) % Plt Count (140-400) K/mcL MPV (9.4-12.4) fL Immature Gran % (0-4) % Seg Neutrophils % % Lymphocytes % % Monocytes % % Eosinophils % % Basophils % % Neutrophils # (1.6-8.9) K/mcL Lymphocytes # (0.6-4.6) K/mcL Monocytes # (0.0-1.3) K/mcL Eosinophils # (0.0-0.6) K/mcL Basophils # (0.0-0.2) K/mcL PT (9.4-12.1) Seconds INR APTT (26.0-36.0) Seconds Sodium (136-145) mEq/L Potassium (3.5-5.1) mEq/L Chloride (98-107) mEq/L Carbon Dioxide (23-29) mEq/L BUN (8-23) mg/dL Creatinine (0.70-1.30) mg/dL Est GFR ( Amer) (> 60) Est GFR (Non-Af Amer) (> 60) BUN/Creatinine Ratio (6-26) Glucose (70-105) mg/dL Calculated Osmolality (280-300) Lactic Acid 0.8 (0.5-2.2) mmol/L Calcium (8.6-10.3) mg/dL Phosphorus (2.7-4.5) mg/dL Magnesium (1.6-2.6) mg/dL Total Bilirubin (0.3-1.0) mg/dL Direct Bilirubin (0.0-0.2) mg/dL Indirect Bilirubin (0.0-1.2) mg/dL AST (13-39) Units/L ALT (7-52) Units/L Alkaline Phosphatase (34-104) Units/L Troponin I (< 0.04) ng/mL B-Natriuretic Peptide 258 H (Less than 100) pg/mL Serum Total Protein (6.4-8.9) g/dL Albumin (3.5-5.7) g/dL Globulin (2.4-3.5) g/dL Albumin/Globulin Ratio (1.1-2.2) Lipase (11-82) Units/L Random Cortisol mcg/dl - Radiology Data Radiology results reviewed: Yes I reviewed the patient's radiology results. Chest X-Ray 01/21/19 17:53 IMPRESSION: 1. Cardiomegaly with moderate congestive heart failure. D/ / 01/21/2019 18:19:39 Sivan Cunha MD / bcarter Interpreting Provider: Sivan Cunha MD - EKG Data EKG #1 EKG attestation: Yes I reviewed and interpreted this EKG. EKG shows normal: sinus rhythm Rate: normal Rhythm: NSR [place]/QRS: normal T wave inversions noted in: aVR Interpretation: no acute changes, nonspecific ST-T wave changes S.B.A.RDana - S.B.AGeorge Situation: Demographics Background: Presenting Complaint Assessment: Vital Signs, Course and respsone to treatment, Patient/Family Expectation Recommendation: Barrier(s) to disposition, Recommendation based on pending studies, treatments, or consults S.B.A.RDana Report Given to: Dr. Kamari VelasquezAGeorge Repor Time: 21:28 Attestation Statement - Attestation Attestation: I, Mono Rhodes DO, examined this patient [id number] and my medical decision-making was reviewed with Dr. Pablo Zacarias, Resident Physician. I agree with the documented findings, disposition and treatment plan as described except to the extent set forth below. I personally supervised and was present for the coronado/critical portions of the procedures completed by the resident documented below. Please see my progress notes for details.
[2019-01-21] MEDS ORDERED: Lidocaine Jelly 11 ml Syringe TP ONE (18:44)
--- NOTE | 2019-01-21 19:08 | Emergency Department Note ---
Disposition Clinical Impression: Urinary retention, Acute kidney injury superimposed on chronic kidney disease, Uremia Congestive heart failure Qualifiers: Heart failure type: unspecified Heart failure chronicity: unspecified Qualified Code(s): I50.9 - Heart failure, unspecified Disposition: Admitted As Inpatient Condition: Fair [facility]: [facility] [Primary Care Provider[facility] - Time of Disposition: 21:06 General Adult HPI - General Chief complaint: ED Urogenital-Male Stated complaint: Lethargic Time Seen by Provider: 01/21/19 17:51 Source: patient, EMS Mode of arrival: EMS Limitations: no limitations - History of Present Illness Pain Scale: 10 - Related Data Home Medications Medication Instructions Recorded Confirmed Allopurinol [Zyloprim 100 MG] 100 mg PO QAM 12/26/18 12/26/18 Allopurinol [Zyloprim 100 MG] 200 mg PO HS 12/26/18 12/26/18 Atenolol [Tenormin] 25 mg PO BID 12/26/18 12/26/18 Brimonidine 0.2% [Alphagan] 1 drop BOTH EYES BID 12/26/18 12/26/18 Cholecalciferol (D-3) [Vitamin D] 2,000 unit PO DAILY 12/26/18 12/26/18 Cyanocobalamin (Vitamin B-12) 500 mcg PO DAILY 12/26/18 12/26/18 [Vitamin B-12] Gabapentin [Neurontin] 800 mg PO BID 12/26/18 12/26/18 Latanoprost [Xalatan] 1 drop BOTH EYES HS 12/26/18 12/26/18 OxyCODONE Immed Rel [Roxicodone 5 10 mg PO Q6HR 12/26/18 12/26/18 MG] Phenazopyridine HCl 200 mg PO TID 12/26/18 12/26/18 Simvastatin [Zocor] 20 mg PO HS 12/26/18 12/26/18 Subcutaneous Insulin Pump [T:Slim] 1 each MC AD 12/26/18 12/26/18 Tamsulosin [Flomax] 0.4 mg PO DAILY 12/26/18 12/26/18 Warfarin [Coumadin] 5 mg PO SUMOTUWETHSA 12/26/18 12/26/18 amLODIPine [Norvasc] 5 mg PO BID 12/26/18 12/26/18 hydrALAZINE [HydrALAZINE] 10 mg PO BID 12/26/18 12/26/18 Allergies Allergy/AdvReac Type Severity Reaction Status Date / Time ciprofloxacin [From Cipro] AdvReac Nausea Verified 12/26/18 12:11 morphine AdvReac Nausea Verified 12/26/18 12:11 Saxagliptin [From Onglyza] AdvReac Nausea Verified 12/26/18 12:11 sulfamethoxazole AdvReac Nausea Verified 12/26/18 12:11 [From Bactrim] trimethoprim [From Bactrim] AdvReac Nausea Verified 12/26/18 12:11 Constitutional: Denies: fever Respiratory: Reports: cough, dyspnea Gastrointestinal: Denies: abdominal pain, nausea, vomiting Past Medical History - Past Medical History Medical history: Reports: arthritis, atrial fibrillation, cirrhosis, CHF, COPD, diabetes, glaucoma, hypertension, renal disease Surgical history: Reports: knee replacement Psychiatric history: Reports: PTSD - Social History Smoking Status: Former smoker Smokeless Tobacco Status: No Alcohol use: Reports: none Drug use: Reports: none Physical Exam - General Limitations: no limitations General appearance: alert, other (Appears chronically ill) Course Vital Signs Temperature 98.3 F 01/21/19 17:48 Pulse Rate 61 01/21/19 17:48 Respiratory Rate 18 01/21/19 17:48 Blood Pressure 164/76 01/21/19 17:48 O2 Sat by Pulse Oximetry 93 01/21/19 17:48 Temperature 98.3 F 01/21/19 17:48 Pulse Rate 61 01/21/19 17:48 Respiratory Rate 18 01/21/19 17:48 Blood Pressure 164/76 01/21/19 17:48 O2 Sat by Pulse Oximetry 93 01/21/19 17:48 Oxygen Delivery Oxygen Delivery Room Air Medical Decision Making - Lab Data Result diagrams: 01/21/19 19:27 01/21/19 19:27 Lab Results 01/21/19 01/21/19 01/21/19 Range/Units 19:27 19:27 19:27 WBC 8.6 (4.3-11.1) K/mcL RBC 3.40 L (4.19-5.50) M/mcL Hgb 9.6 L (12.9-16.9) g/dL Hct 30.9 L (37.5-50.1) % MCV 90.9 (83.0-100.0) fL MCH 28.2 (28.0-33.3) pg MCHC 31.1 L (31.6-35.5) g/dL RDW 15.4 H (11.5-14.5) % Plt Count 232 (140-400) K/mcL MPV 11.0 (9.4-12.4) fL Immature Gran % 0.3 (0-4) % Seg Neutrophils % 72.4 % Lymphocytes % 14.1 % Monocytes % 8.6 % Eosinophils % 4.3 % Basophils % 0.3 % Neutrophils # 6.2 (1.6-8.9) K/mcL Lymphocytes # 1.2 (0.6-4.6) K/mcL Monocytes # 0.7 (0.0-1.3) K/mcL Eosinophils # 0.4 (0.0-0.6) K/mcL Basophils # 0.0 (0.0-0.2) K/mcL PT 46.2 H* (9.4-12.1) Seconds INR 4.1 APTT 46.5 H (26.0-36.0) Seconds Sodium 134 L (136-145) mEq/L Potassium 5.1 (3.5-5.1) mEq/L Chloride 103 (98-107) mEq/L Carbon Dioxide 22 L (23-29) mEq/L BUN 91 H (8-23) mg/dL Creatinine 2.54 H (0.70-1.30) mg/dL Est GFR ( Amer) 30 L (> 60) Est GFR (Non-Af Amer) 25 L (> 60) BUN/Creatinine Ratio 36 H (6-26) Glucose 60 L (70-105) mg/dL Calculated Osmolality 304 H (280-300) Lactic Acid (0.5-2.2) mmol/L Calcium 8.9 (8.6-10.3) mg/dL Phosphorus 5.2 H (2.7-4.5) mg/dL Magnesium 2.8 H (1.6-2.6) mg/dL Total Bilirubin 0.8 (0.3-1.0) mg/dL Direct Bilirubin 0.3 H (0.0-0.2) mg/dL Indirect Bilirubin 0.5 (0.0-1.2) mg/dL AST 25 (13-39) Units/L ALT 23 (7-52) Units/L Alkaline Phosphatase 87 (34-104) Units/L Troponin I < 0.03 (< 0.04) ng/mL B-Natriuretic Peptide (Less than 100) pg/mL Serum Total Protein 7.4 (6.4-8.9) g/dL Albumin 3.1 L (3.5-5.7) g/dL Globulin 4.3 H (2.4-3.5) g/dL Albumin/Globulin Ratio 0.7 L (1.1-2.2) Lipase 22 (11-82) Units/L Random Cortisol 11.7 mcg/dl 01/21/19 01/21/19 Range/Units 19:27 19:27 WBC (4.3-11.1) K/mcL RBC (4.19-5.50) M/mcL Hgb (12.9-16.9) g/dL Hct (37.5-50.1) % MCV (83.0-100.0) fL MCH (28.0-33.3) pg MCHC (31.6-35.5) g/dL RDW (11.5-14.5) % Plt Count (140-400) K/mcL MPV (9.4-12.4) fL Immature Gran % (0-4) % Seg Neutrophils % % Lymphocytes % % Monocytes % % Eosinophils % % Basophils % % Neutrophils # (1.6-8.9) K/mcL Lymphocytes # (0.6-4.6) K/mcL Monocytes # (0.0-1.3) K/mcL Eosinophils # (0.0-0.6) K/mcL Basophils # (0.0-0.2) K/mcL PT (9.4-12.1) Seconds INR APTT (26.0-36.0) Seconds Sodium (136-145) mEq/L Potassium (3.5-5.1) mEq/L Chloride (98-107) mEq/L Carbon Dioxide (23-29) mEq/L BUN (8-23) mg/dL Creatinine (0.70-1.30) mg/dL Est GFR ( Amer) (> 60) Est GFR (Non-Af Amer) (> 60) BUN/Creatinine Ratio (6-26) Glucose (70-105) mg/dL Calculated Osmolality (280-300) Lactic Acid 0.8 (0.5-2.2) mmol/L Calcium (8.6-10.3) mg/dL Phosphorus (2.7-4.5) mg/dL Magnesium (1.6-2.6) mg/dL Total Bilirubin (0.3-1.0) mg/dL Direct Bilirubin (0.0-0.2) mg/dL Indirect Bilirubin (0.0-1.2) mg/dL AST (13-39) Units/L ALT (7-52) Units/L Alkaline Phosphatase (34-104) Units/L Troponin I (< 0.04) ng/mL B-Natriuretic Peptide 258 H (Less than 100) pg/mL Serum Total Protein (6.4-8.9) g/dL Albumin (3.5-5.7) g/dL Globulin (2.4-3.5) g/dL Albumin/Globulin Ratio (1.1-2.2) Lipase (11-82) Units/L Random Cortisol mcg/dl Attestation Statement - Attestation Attestation: I, Mono Rhodes DO, examined this patient [id number] and my medical decision-making was reviewed with Dr. Pablo Zacarias, Resident Physician. I agree with the documented findings, disposition and treatment plan as described except to the extent set forth below. I personally supervised and was present for the coronado/critical portions of the procedures completed by the resident documented below. Please see my progress notes for details. 73-year-old male presents emergency room in care of EMS for evaluation of confusion and generalized weakness and lethargy after he had a catheter removed. Patient had a catheter removed 2 days ago after what was described as possible prostate related issues and urinary retention. denies any fevers or chills. Patient is denying chest pain or shortness of breath. He has not had any nausea vomiting or diarrhea at this time. Denies any falls trauma or injury. He has not had any new medications or changes in medications at this time. Vital signs are stable during transport. Accu-Chek was collected and is unremarkable. Patient is speaking on arrival but does have some confusion. He does not show any acute neurologic deficits. Cranial nerves II through XII appear to be grossly intact. Head is atraumatic. Pupils are equal round reactive. Mucous membranes are slightly dry. Oropharynx is patent. Trachea is midline. Lungs are clear. Heart is regular. Abdomen is soft nontender nondistended with no guarding no rigidity no peritoneal symptoms at this point. examination shows diffuse swelling in the midabdomen down to the lower extremities and in the testicles. Patient will have Larios catheter placed CBC chemistry urinalysis troponin and BNP collected here along with chest x-ray. Symptomatic control to be established and disposition determined. Patient family are both aware of the plan and comfortable with the plan at this time. See detailed documentation the physical exam, medical intervention, medical decision-making and disposition in the resident physician's note. No critical care pad the patient's treatment course at this time. The EKG was reviewed by myself and documented in the resident physician's note with no other acute etiology. 1999 4 attempts including one by myself and Dr. Zacarias was completed attempting to place Larios catheter. 380 mL of residual urine is noted on bedside ultrasound. Imaging is reviewed by myself and the procedures completed by the resident physician. Jin catheter was attempted with the patient is so edematous in the lower abdomen is difficult to get a hold of the glans to find the urethra. We did get access to the urethra at one point but met resistance of the prostate which is store issue with the patient. The on-call urologist Dr. Rios was contacted to come in to place a scope catheter this time. No other acute issues noted this point. Patient will be admitted for generalized lethargy and Larios catheter related issues along with fluid overload. Patient has primary congestion on chest x-ray but will not be treated with Lasix at this point considering we do not have full access of this time. Labs otherwise unremarkable chronic issues noted. Admission process to be established. Con sult for urology has been placed. 2044 Dr. Rios is a bedside emergency department was [address] kelly reviewed the case and had no other concerns or issues. Patient is ot herwise clinically stable. He will be monitored for what appears to be general lethargy and urinary retention secondary to prostate outlet issues. Patient has been appropriately managed for his congestive heart failure presentation and fluid overload. Patient will be monitored here in emergency Department of the admission process is completed.
[2019-01-21 19:39] LABS: Basophils % 0.3 %; Eosinophils # 0.4 K/mcL (0.0-0.6); Eosinophils % 4.3 %; Hematocrit 30.9 % (37.5-50.1); Hemoglobin 9.6 g/dL (12.9-16.9); Immature Granulocytes % 0.3 % (0-4); Lymphocytes # 1.2 K/mcL (0.6-4.6); Lymphocytes % 14.1 %; Mean Corpuscular HGB Conc 31.1 g/dL (31.6-35.5); Mean Corpuscular Hemoglobin 28.2 pg (28.0-33.3); Mean Corpuscular Volume 90.9 fL (83.0-100.0); Monocytes # 0.7 K/mcL (0.0-1.3); Monocytes % 8.6 %; Neutrophils # 6.2 K/mcL (1.6-8.9); Platelet Count 232 K/mcL (140-400); Red Cell Distribution Width 15.4 % (11.5-14.5); Segmented Neutrophils % 72.4 %
[2019-01-21 19:53] LABS: INR 4.1
[2019-01-21 19:56] LABS: Activated Partial Thrombo Time 46.5 Seconds (26.0-36.0)
[2019-01-21 19:58] LABS: Prothrombin Time 46.2 Seconds (9.4-12.1)
[2019-01-21 20:05] LABS: Alanine Aminotransferase 23 Units/L (7-52); Albumin 3.1 g/dL (3.5-5.7); Albumin/Globulin Ratio 0.7 (1.1-2.2); Alkaline Phosphatase 87 Units/L (34-104); Aspartate Amino Transferase 25 Units/L (13-39); BUN/Creatinine Ratio 36 (6-26); Bilirubin,Direct 0.3 mg/dL (0.0-0.2); Bilirubin,Indirect 0.5 mg/dL (0.0-1.2); Bilirubin,Total 0.8 mg/dL (0.3-1.0); Blood Urea Nitrogen 91 mg/dL (8-23); Calcium 8.9 mg/dL (8.6-10.3); Carbon Dioxide 22 mEq/L (23-29); Chloride 103 mEq/L (98-107); Globulin 4.3 g/dL (2.4-3.5); Glucose 60 mg/dL (70-105); Lipase 22 Units/L (11-82); Magnesium 2.8 mg/dL (1.6-2.6); Osmolality,Calculated 304 (280-300); Phosphorous 5.2 mg/dL (2.7-4.5); Potassium 5.1 mEq/L (3.5-5.1); Sodium 134 mEq/L (136-145); Total Protein 7.4 g/dL (6.4-8.9); Troponin I < 0.03 ng/mL (< 0.04); eGFR For Non-African Americans 25 (> 60)
[2019-01-21] MEDS ORDERED: *HR* OxyCODONE Immed Rel 5 MG TABLET PO PRN (21:46)
[2019-01-21] MEDS ORDERED: D5% in Water 1,000 ML IVC PRN (21:51)
[2019-01-21] MEDS ORDERED: *HR* Dextrose 50 % in Water (Syg) 50 ML SYRINGE IVP PRN (21:51)
[2019-01-21] MEDS ORDERED: Dextrose Gel 15 GM/37.5 ML TUBE PO PRN ×2 (21:51)
[2019-01-21] MEDS ORDERED: Furosemide 80 MG in 0.9 % Sodium Chloride 50 ML IVPB ONE (21:52)
--- NOTE | 2019-01-21 22:14 | Internal Med History&Physical ---
Date of Encounter: 01/21/19 Time of Encounter: 22:13 Internal Medicine - H&P: HPI Chief complaint: swelling Admitted From: Home Plans for Post Hospital Care: Home History of present illness: Richard Duque is a 73-year-old obese man with a history of CVA, gout, CKD, alcoholic liver cirrhosis, atrial fibrillation on warfarin, COPD/DORIE, hypertension and diabetes presents to the emergency room brought in by his with the complaint of generalized weakness and diffuse body swelling that is affecting his scrotum and lower legs. This is also accompanied by mild shortness of breath but no chest pain or productive cough. He says his scrotal swelling has impeded his ability to urinate adequately, stating that he previously had a Larios catheter that was recently removed a couple of days ago and things have gotten worse. Patient states that he is on 80 mg furosemide twice a day but was recently changed to torsemide but had an adverse reaction to it and therefore has not taken any diuretics. In the ER he was noted clinically and hemodynamically stable, with lab work close to his baseline except an elevated INR at 4.1. No overt signs of bleeding. There was difficulty placing a Larios due to his swollen genitalia therefore urology was called in for placement after which about 300 mL of dark urine was obtained. Chest x-ray reviewed by me and reveals significant pulmonary vascular congestion and cardiomegaly. He is admitted for further care. Vitals: Reviewed General: Obese white male, appears uncomfortable and somewhat shaky and not in acute distress. Skin: Warm and diaphoretic. HEENT: Moist mucous membranes. No conjunctivae pallor. Neck: No lymphadenopathy. No JVD. No carotid bruits. No palpable thyroid. Chest: Diminished thoracic expansion. Reduced breath sounds. Heart: Normal S1 & S2; rhythmic. No rubs or murmurs. Abdomen: soft and non-tender to palpation. No peritoneal reaction. Extremities: No clubbing, cyanosis. 3+ pitting edema with active suppuration of clear fluid from his skin. No calf tenderness. Normal distal pulses. Neurological: Awake, alert and oriented to person, place and time. No focal deficits. Psych: Affect appropriate. Assessment/Plan 1. Anasarca: unclear if secondary to his chronic kidney disease leading to poor urine output and subsequent fluid overload. He also has signs of heart failure, perhaps more diastolic given his recent echo showing an EF of 70%. Will give a high loading dose of 80mg IV now and continue with 60mg BID to continue. Will monitor urine output with this. 2. Acute urinary retention: Seemingly obstructive due to genital swelling and prostate enlargement. Larios should remain in place for the time being until the base problem is resolved. 3. CKD: Stable. Seen to have elevated phosphorus and magnesium. Will repeat and if remains elevated will start measures to correct. 4. Diabetes: The patient is notably shaky on my exam with a glucose of 60 on B MP. I rechecked it and it was down to 54; will give dextrose and food. Place on insulin sliding scale and stop insulin pump. 5. Afib: Rate controlled. INR elevated. No bleeding. Will watch daily. Past Med Surg Social Fam HX - Past Medical History Medical history: arthritis, atrial fibrillation, cirrhosis, CHF, COPD, diabetes, glaucoma, hypertension, renal disease Additional medical history: sciatica, gout, CKD III, DORIE, DM II Psychiatric history: PTSD - Past Surgical History Surgical History: knee replacement Additional surgical history: knee replacement x3 - Social History Smoking Status: Former smoker Smokeless Tobacco Status: No Alcohol use: none Drug use: none Internal Medicine - H&P: Meds Allopurinol [Zyloprim 100 MG] 100 mg PO QAM 12/26/18 [History] Allopurinol [Zyloprim 100 MG] 200 mg PO HS 12/26/18 [History] Atenolol [Tenormin] 25 mg PO BID 12/26/18 [History] Brimonidine 0.2% [Alphagan] 1 drop BOTH EYES BID 12/26/18 [History] Cholecalciferol (D-3) [Vitamin D] 2,000 unit PO DAILY 12/26/18 [History] Cyanocobalamin (Vitamin B-12) [Vitamin B-12] 500 mcg PO DAILY 12/26/18 [History] Gabapentin [Neurontin] 800 mg PO BID 12/26/18 [History] Latanoprost [Xalatan] 1 drop BOTH EYES HS 12/26/18 [History] OxyCODONE Immed Rel [Roxicodone 5 MG] 10 mg PO Q6HR 12/26/18 [History] Phenazopyridine HCl 200 mg PO TID 12/26/18 [History] Simvastatin [Zocor] 20 mg PO HS 12/26/18 [History] Subcutaneous Insulin Pump [T:Slim] 1 each MC AD 12/26/18 [History] Tamsulosin [Flomax] 0.4 mg PO DAILY 12/26/18 [History] Warfarin [Coumadin] 5 mg PO SUMOTUWETHSA 12/26/18 [History] amLODIPine [Norvasc] 5 mg PO BID 12/26/18 [History] hydrALAZINE [HydrALAZINE] 10 mg PO BID 12/26/18 [History] Lasix 80 PO BID 01/21/19 [History] Allergy/AdvReac Type Severity Reaction Status Date / Time ciprofloxacin [From Cipro] AdvReac Nausea Verified 12/26/18 12:11 morphine AdvReac Nausea Verified 12/26/18 12:11 Saxagliptin [From Onglyza] AdvReac Nausea Verified 12/26/18 12:11 sulfamethoxazole AdvReac Nausea Verified 12/26/18 12:11 [From Bactrim] trimethoprim [From Bactrim] AdvReac Nausea Verified 12/26/18 12:11 All Systems PM: A 10-system review of systems was performed and is negative for pertinent findings except as documented above in the HPI. Family history reviewed and found non-contributory. - Constitutional Vitals: Temp Pulse Resp BP Pulse Ox 96.3 F L 64 15 114/57 94 01/21/19 22:00 01/21/19 22:00 01/21/19 22:00 01/21/19 22:00 01/21/19 22:00 Exam: . Internal Med - H&P Results - Labs CBC & Chem 7: 01/21/19 19:27 01/21/19 19:27 Labs: Short CBC 01/21/19 Range/Units 19:27 WBC 8.6 (4.3-11.1) K/mcL Hgb 9.6 L (12.9-16.9) g/dL Hct 30.9 L (37.5-50.1) % Plt Count 232 (140-400) K/mcL Neutrophils # 6.2 (1.6-8.9) K/mcL BMP 01/21/19 19:27 Sodium 134 L Potassium 5.1 Chloride 103 Carbon Dioxide 22 L BUN 91 H Creatinine 2.54 H Glucose 60 L Calcium 8.9 Cardiac Enzymes 01/21/19 Range/Units 19:27 Troponin I < 0.03 (< 0.04) ng/mL Liver Function 01/21/19 Range/Units 19:27 Total Bilirubin 0.8 (0.3-1.0) mg/dL Direct Bilirubin 0.3 H (0.0-0.2) mg/dL AST 25 (13-39) Units/L ALT 23 (7-52) Units/L Alkaline Phosphatase 87 (34-104) Units/L Albumin 3.1 L (3.5-5.7) g/dL - Impressions ITS Impressions Chest X-Ray 01/21/19 17:53 IMPRESSION: 1. Cardiomegaly with moderate congestive heart failure. D/ / 01/21/2019 18:19:39 Sivan Cunha MD / kale Interpreting Provider: Sivan Cunha MD Head CT 01/21/19 17:53 IMPRESSION: No acute intracranial abnormality. Mild paranasal sinus mucosal thickening. D/ / Abe Cruz / Abe Cruz Interpreting Provider: Abe Cruz - Time Spent With Patient Total time spent is greater than 50% in coordination of care (as documented) at patient's floor/unit and/or counseling patient: Greater than 35 minutes
[2019-01-21] MEDS: Insulin LISPRO 300 UNITS/3 ML VIAL SQ SCH (22:20)
[2019-01-21] MEDS: Latanoprost 2.5 ML BOTTLE BOTH EYES SCH (23:01)
[2019-01-22 05:03] LABS: Bilirubin,Urine Negative (Negative); Blood,Urine Large (Negative); Clarity,Urine Turbid (Clear); Glucose,Urine (UA) Normal (Normal); Ketones,Urine Negative (Negative); Leukocyte Esterase,Urine Large (Negative); Nitrite,Urine Negative (Negative); PH,Urine 5.5 pH Units (5.0-8.0); Protein,Urine 100 mg/dL (Neg-Trace); Specific Gravity,Urine 1.025 (1.010-1.025); Urobilinogen,Urine Normal (Normal)
[2019-01-22 05:05] LABS: WBC,Urine TNTC per hpf (0-3)
[2019-01-22 05:06] LABS: Color,Urine Light Yellow (Yellow)
[2019-01-22 05:08] LABS: Basophils % 0.3 %; Eosinophils # 0.3 K/mcL (0.0-0.6); Eosinophils % 4.6 %; Hemoglobin 9.2 g/dL (12.9-16.9); Immature Granulocytes % 0.3 % (0-4); Lymphocytes % 15.1 %; Mean Corpuscular HGB Conc 30.7 g/dL (31.6-35.5); Mean Corpuscular Hemoglobin 28.1 pg (28.0-33.3); Mean Corpuscular Volume 91.7 fL (83.0-100.0); Mean Platelet Volume 10.9 fL (9.4-12.4); Monocytes # 0.6 K/mcL (0.0-1.3); Monocytes % 9.8 %; Neutrophils # 4.5 K/mcL (1.6-8.9); Platelet Count 199 K/mcL (140-400); Red Blood Count 3.27 M/mcL (4.19-5.50); Red Cell Distribution Width 15.5 % (11.5-14.5); Segmented Neutrophils % 69.9 %
[2019-01-22 05:16] LABS: Bacteria,Urine Present per hpf (None-Few); Hyaline Casts,Urine None Seen per lpf (None-Few); Mucus,Urine Present (Few); Renal Epithelial Cells,Urine Present per hpf (None-Few); Squamous Epithelial Cell,Urine Present per lpf (None-Few); Yeast,Urine Present per hpf (None Seen)
[2019-01-22 05:17] LABS: RBC,Urine TNTC per hpf (0-3)
[2019-01-22 05:22] LABS: Prothrombin Time 45.6 Seconds (9.4-12.1)
[2019-01-22 05:28] LABS: Calcium 8.8 mg/dL (8.6-10.3); Magnesium 2.8 mg/dL (1.6-2.6); Phosphorous 5.8 mg/dL (2.7-4.5); Potassium 5.4 mEq/L (3.5-5.1)
--- NOTE | 2019-01-22 07:01 | Urology - Consult Note ---
Date of Encounter: 01/21/19 Time of Encounter: 21:00 - Assessment and Plan (1) Genital edema, male Current Visit: Yes Status: Acute Assessment and plan: Genital edema secondary to systemic health issues. Should improve with diur esis. Consider elevating the scrotum with a washcloth to help with the edema if minimal improvement (2) Difficulty with insertion of urinary catheter Current Visit: Yes Status: Acute Assessment and plan: I was able to place the catheter over a zip wire. Keep catheter in place until genital edema decreases in patient's acute health issues have resolved. Urology CN:ARLENE Consult date: 01/22/19 Reason for consult Urology: Difficult Larios History of present illness: 73-year-old male presents to the emergency room with illness. Increased genital edema. Emergency room staff unable to place Larios catheter. I was contacted place the catheter in Past Med Surg Social Fam HX - Past Medical History Medical history: arthritis, atrial fibrillation, cirrhosis, CHF, COPD, diabetes, glaucoma, hypertension, renal disease Additional medical history: sciatica, gout, CKD III, DORIE, DM II Psychiatric history: PTSD - Past Surgical History Surgical History: knee replacement Additional surgical history: knee replacement x3 - Social History Smoking Status: Former smoker Smokeless Tobacco Status: No Alcohol use: none Drug use: none Medications and Allergies Allopurinol [Zyloprim 100 MG] 100 mg PO QAM 12/26/18 [History] Allopurinol [Zyloprim 100 MG] 200 mg PO HS 12/26/18 [History] Atenolol [Tenormin] 25 mg PO BID 12/26/18 [History] Brimonidine 0.2% [Alphagan] 1 drop BOTH EYES BID 12/26/18 [History] Cholecalciferol (D-3) [Vitamin D] 2,000 unit PO DAILY 12/26/18 [History] Cyanocobalamin (Vitamin B-12) [Vitamin B-12] 500 mcg PO DAILY 12/26/18 [History] Gabapentin [Neurontin] 800 mg PO BID 12/26/18 [History] Latanoprost [Xalatan] 1 drop BOTH EYES HS 12/26/18 [History] OxyCODONE Immed Rel [Roxicodone 5 MG] 10 mg PO Q6HR 12/26/18 [History] Phenazopyridine HCl 200 mg PO TID 12/26/18 [History] Simvastatin [Zocor] 20 mg PO HS 12/26/18 [History] Subcutaneous Insulin Pump [T:Slim] 1 each MC AD 12/26/18 [History] Tamsulosin [Flomax] 0.4 mg PO DAILY 12/26/18 [History] Warfarin [Coumadin] 5 mg PO SUMOTUWETHSA 12/26/18 [History] amLODIPine [Norvasc] 5 mg PO BID 12/26/18 [History] hydrALAZINE [HydrALAZINE] 10 mg PO BID 12/26/18 [History] Lasix 80 PO BID 01/21/19 [History] Allergy/AdvReac Type Severity Reaction Status Date / Time ciprofloxacin [From Cipro] AdvReac Nausea Verified 12/26/18 12:11 morphine AdvReac Nausea Verified 12/26/18 12:11 Saxagliptin [From Onglyza] AdvReac Nausea Verified 12/26/18 12:11 sulfamethoxazole AdvReac Nausea Verified 12/26/18 12:11 [From Bactrim] trimethoprim [From Bactrim] AdvReac Nausea Verified 12/26/18 12:11 Review of Systems - Constitutional fatigue, weakness, no fever(s) - EENT Nose, mouth and throat: no dizziness - Cardiovascular no chest pain - Respiratory no cough - Gastrointestinal abdominal pain - Genitourinary change in urinary stream, urinary hesitancy - Musculoskeletal back pain - Integumentary erythema - Neurological weakness - Psychiatric no anxiety - Hematologic/Lymphatic no easy bleeding - Allergic/Immunologic no throat swelling Exam Initial Vital Signs Temp Pulse Resp BP Pulse Ox 98.3 F 61 18 164/76 93 01/21/19 17:48 01/21/19 17:48 01/21/19 17:48 01/21/19 17:48 01/21/19 17:48 - General physical appearance Present: chronically ill, obese - Eyes Absent: icteric - ENT Present: normal nares - Neck Present: no masses, no lymphadenopathy - Respiratory Present: normal respiratory effort - Cardiovascular Cardiovascular exam IM: RRR - Abdomen Abdomen: Present: soft (Obese), suprapubic tenderness (Mild) - Neurologic Absent: confused - Additional Findings Patient unable to stay awake long for history or exam Severe lower extremity edema with evidence of chronic venous stasis Significant genital edema. Uncircumcised phallus with large edema to foreskin. Very difficult to retract to visualize glans. Scrotal wall edema. Urology Results - Labs 01/22/19 04:51 01/22/19 04:51 Abnormal lab results RBC 3.27 M/mcL (4.19-5.50) L 01/22/19 04:51 Hgb 9.2 g/dL (12.9-16.9) L 01/22/19 04:51 Hct 30.0 % (37.5-50.1) L 01/22/19 04:51 MCHC 30.7 g/dL (31.6-35.5) L 01/22/19 04:51 RDW 15.5 % (11.5-14.5) H 01/22/19 04:51 PT 45.6 Seconds (9.4-12.1) H* 01/22/19 04:51 APTT 46.5 Seconds (26.0-36.0) H 01/21/19 19:27 Sodium 135 mEq/L (136-145) L 01/22/19 04:51 Potassium 5.4 mEq/L (3.5-5.1) H 01/22/19 04:51 Carbon Dioxide 22 mEq/L (23-29) L 01/21/19 19:27 BUN 100 mg/dL (8-23) H 01/22/19 04:51 2.68 mg/dL (0.70-1.30) H 01/22/19 04:51 Est GFR ( Amer) 28 (> 60) L 01/22/19 04:51 Est GFR (Non-Af Amer) 23 (> 60) L 01/22/19 04:51 37 (6-26) H 01/22/19 04:51 Glucose 154 mg/dL (70-105) H 01/22/19 04:51 POC Glucose 127 mg/dL (70-99) H 01/22/19 03:44 314 (280-300) H 01/22/19 04:51 Phosphorus 5.8 mg/dL (2.7-4.5) H 01/22/19 04:51 Magnesium 2.8 mg/dL (1.6-2.6) H 01/22/19 04:51 0.3 mg/dL (0.0-0.2) H 01/21/19 19:27 B-Natriuretic Peptide 258 pg/mL (Less than 100) H 01/21/19 19:27 3.1 g/dL (3.5-5.7) L 01/21/19 19:27 4.3 g/dL (2.4-3.5) H 01/21/19 19:27 0.7 (1.1-2.2) L 01/21/19 19:27 Turbid (Clear) A 01/22/19 04:30 100 mg/dL (Neg-Trace) H 01/22/19 04:30 Large (Negative) H 01/22/19 04:30 Ur Leukocyte Esterase Large (Negative) H 01/22/19 04:30 TNTC per hpf (0-3) H 01/22/19 04:30 TNTC per hpf (0-3) H 01/22/19 04:30 Present per hpf (None Seen) H 01/22/19 04:30 Ur Culture Indicated? YES (NO) A 01/22/19 04:30 Diabetes panel 01/21/19 01/22/19 Range/Units 19:27 04:51 Sodium 134 L 135 L (136-145) mEq/L Potassium 5.1 5.4 H (3.5-5.1) mEq/L Chloride 103 103 (98-107) mEq/L Carbon Dioxide 22 L 25 (23-29) mEq/L BUN 91 H 100 H (8-23) mg/dL Creatinine 2.54 H 2.68 H (0.70-1.30) mg/dL Glucose 60 L 154 H (70-105) mg/dL Calcium 8.9 8.8 (8.6-10.3) mg/dL AST 25 (13-39) Units/L ALT 23 (7-52) Units/L Alkaline Phosphatase 87 (34-104) Units/L Albumin 3.1 L (3.5-5.7) g/dL Calcium panel 01/21/19 01/22/19 01/22/19 Range/Units 19:27 04:51 04:51 Calcium 8.9 8.8 (8.6-10.3) mg/dL Phosphorus 5.2 H 5.8 H (2.7-4.5) mg/dL Albumin 3.1 L (3.5-5.7) g/dL Pituitary panel 01/21/19 01/22/19 Range/Units 19:27 04:51 Sodium 134 L 135 L (136-145) mEq/L Potassium 5.1 5.4 H (3.5-5.1) mEq/L Chloride 103 103 (98-107) mEq/L Carbon Dioxide 22 L 25 (23-29) mEq/L BUN 91 H 100 H (8-23) mg/dL Creatinine 2.54 H 2.68 H (0.70-1.30) mg/dL Glucose 60 L 154 H (70-105) mg/dL Calcium 8.9 8.8 (8.6-10.3) mg/dL Adrenal panel 01/21/19 01/22/19 Range/Units 19:27 04:51 Sodium 134 L 135 L (136-145) mEq/L Potassium 5.1 5.4 H (3.5-5.1) mEq/L Chloride 103 103 (98-107) mEq/L Carbon Dioxide 22 L 25 (23-29) mEq/L BUN 91 H 100 H (8-23) mg/dL Creatinine 2.54 H 2.68 H (0.70-1.30) mg/dL Glucose 60 L 154 H (70-105) mg/dL Calcium 8.9 8.8 (8.6-10.3) mg/dL Total Bilirubin 0.8 (0.3-1.0) mg/dL AST 25 (13-39) Units/L ALT 23 (7-52) Units/L Alkaline Phosphatase 87 (34-104) Units/L Albumin 3.1 L (3.5-5.7) g/dL All other labs normal. Procedures:Urology - Catheter Insertion (Urinary) Estimated amount of urin (mLs): 400 Preparation: Povidone-Iodine Type of catheter inserted: 2 way Catheter British Size: 16 Results: unable to pass Urine Appearance: Clear Patient tolerated procedure: well Complications: none Additional comments: I was unable to visualize the patient's glans during my exam. With some difficulty I was able to blindly place the 16-British catheter into the urethral meatus but it would not pass through the bulbar urethra or prostatic urethra. I eventually placed a zip wire through the Larios catheter which felt as though it passed out the eyelet of the catheter and into the bladder. The passed without resistance. I then removed the catheter and used a blunt tipped needle to thread the zip wire through the tip of the catheter and placed the catheter over the zip wire into the bladder. There was some resistance met at the bulbar/ prostatic urethra but I was able to manipulate the catheter through. I return of approximately 400 mL of clear urine. Consult Discharge Plan - Plan
[2019-01-22] MEDS: Insulin LISPRO 300 UNITS/3 ML VIAL SQ SCH ×4 (08:00→21:02)
[2019-01-22] MEDS: Furosemide 40 MG/4 ML VIAL IV SCH ×2 (08:01→16:51)
[2019-01-22] MEDS: Cholecalciferol (D-3) 1,000 UNIT TABLET PO SCH (08:10)
[2019-01-22] MEDS: amLODIPine 5 MG TABLET PO SCH ×2 (08:10→09:17)
[2019-01-22] MEDS: Gabapentin 400 MG CAPSULE PO SCH ×2 (08:10→20:56)
[2019-01-22] MEDS: Cyanocobalamin (B-12) 1,000 MCG TABLET PO SCH (08:11)
[2019-01-22] MEDS: hydrALAZINE 10 MG TABLET PO SCH ×2 (08:11→20:59)
[2019-01-22] MEDS ORDERED: Furosemide 60 MG in 0.9 % Sodium Chloride 50 ML IV SCH (09:00)
--- NOTE | 2019-01-22 10:54 | Internal Med Progress Note ---
Hospitalist Progress Note - Encounter Date of Encounter: 01/22/19 Time of Encounter: 09:15 - Subjective Interval History: Patient is awake and alert. He has had good urine output since Larios catheter was placed and he received Lasix last night. Denies any new complaints at this time. No chest pain or palpitations. Feels better overall although he co ntinues to have significant lower extremity swelling. - Exam Vitals: Temp Pulse Resp BP Pulse Ox 98.1 F 56 18 135/56 92 01/22/19 10:37 01/22/19 10:37 01/22/19 10:37 01/22/19 10:37 01/22/19 10:37 Exam: General: Patient is alert, mild distress, morbidly obese, oriented x 3 ENT: Mucous membranes moist Respiratory: Good respiratory effort. Normal breath sounds. No wheezing or crackles. Cardiovascular: Regular rate and rhythm. s1 and s2 normal No clicks, rubs, gallops, or murmurs. Severe Bilateral pedal edema extending up to the knee Abdomen: Abdomen is soft, nontender. Bowel sounds are present Musculoskeletal: Spontaneously moving all extremities Skin: warm, dry, intact. Neuro: Alert oriented x 3 normal cranial nerves, no focal deficits - Assessment and Plan (1) Anasarca Current Visit: Yes Status: Acute (2) Atrial fibrillation Current Visit: No Status: Chronic (3) CHF (congestive heart failure) Current Visit: Yes Status: Chronic (4) CKD (chronic kidney disease) Current Visit: Yes Status: Chronic (5) COPD (chronic obstructive pulmonary disease) Current Visit: Yes Status: Chronic (6) Diabetes Current Visit: Yes Status: Chronic (7) Urinary retention with incomplete bladder emptying Current Visit: Yes Status: Acute DVT Prophylaxis: On Coumadin - Summary of Assessment and Plan Summary of Assessment and Plan: Generalized anasarca/fluid overload: Patient has responded well to Lasix. Will continue 60 mg twice daily dose as ordered. Renal function slightly worsened but within parameters of his baseline. Will monitor closely. Monitor input and output. Acute urinary retention: Status post Larios catheter insertion. Urology consult appreciated. Acute on chronic diastolic congestive heart failure: Continue Lasix. Monitor vital signs and renal function. Diabetes mellitus type 2: Patient had episodes of hypoglycemia yesterday now resolved. Continue sliding scale insulin and diabetic diet. COPD: Not in acute exacerbation. Will place patient on bronchodilators as needed. Chronic kidney disease stage III: Creatinine 2.68 today. We will monitor closely. Potassium 5.4 but patient is receiving Lasix. Will recheck later today and if elevated, will give Kayexalate. Atrial fibrillation: Chronic A. fib per history. Monitor with telemetry. Patient having episodes of bradycardia. Hold beta colleen for heart rate less than 60. On Coumadin for anticoagulation and INR is therapeutic. - Time Spent with Patient Total time spent is greater than 50% in coordination of care (as documented) at patient's floor/unit and/or counseling patient: Internal Medicine: Result - Labs CBC & Chem 7: 01/22/19 04:51 01/22/19 04:51 Labs: Short CBC 01/21/19 01/22/19 Range/Units 19:27 04:51 WBC 8.6 6.5 (4.3-11.1) K/mcL Hgb 9.6 L 9.2 L (12.9-16.9) g/dL Hct 30.9 L 30.0 L (37.5-50.1) % Plt Count 232 199 (140-400) K/mcL Neutrophils # 6.2 4.5 (1.6-8.9) K/mcL BMP 01/21/19 01/22/19 19:27 04:51 Sodium 134 L 135 L Potassium 5.1 5.4 H Chloride 103 103 Carbon Dioxide 22 L 25 BUN 91 H 100 H Creatinine 2.54 H 2.68 H Glucose 60 L 154 H Calcium 8.9 8.8 Cardiac Enzymes 01/21/19 Range/Units 19:27 Troponin I < 0.03 (< 0.04) ng/mL Liver Function 01/21/19 Range/Units 19:27 Total Bilirubin 0.8 (0.3-1.0) mg/dL Direct Bilirubin 0.3 H (0.0-0.2) mg/dL AST 25 (13-39) Units/L ALT 23 (7-52) Units/L Alkaline Phosphatase 87 (34-104) Units/L Albumin 3.1 L (3.5-5.7) g/dL Urine 01/22/19 Range/Units 04:30 Urine Color Light Yellow (Yellow) Urine Clarity Turbid A (Clear) Urine pH 5.5 (5.0-8.0) pH Units Ur Specific [place] 1.025 (1.010-1.025) Urine Protein 100 H (Neg-Trace) mg/dL Urine Glucose (UA) Normal (Normal) mg/dL - ABG Interpretation ABG results: PT/INR, D-dimer PT 45.6 Seconds (9.4-12.1) H* 01/22/19 04:51 - Impressions Impressions Chest X-Ray 01/21/19 17:53 IMPRESSION: 1. Cardiomegaly with moderate congestive heart failure. D/ / 01/21/2019 18:19:39 Sivan Cunha MD / bcarter Interpreting Provider: Sivan Cunha MD Head CT 01/21/19 17:53 IMPRESSION: No acute intracranial abnormality. Mild paranasal sinus mucosal thickening. D/ / Abe Cruz / Abe Cruz Interpreting Provider: Abe Cruz Consult Discharge Plan - Plan [facility]errals: [facility] [Primary Care Provider[facility] - (2) Atrial fibrillation Qualifiers: Atrial fibrillation type: chronic Qualified Code(s): I48.2 - Chronic atrial fibrillation (3) CHF (congestive heart failure) Qualifiers: Heart failure type: diastolic Heart failure chronicity: chronic Qualified Code(s): I50.32 - Chronic diastolic (congestive) heart failure (4) CKD (chronic kidney disease) Qualifiers: Chronic kidney disease stage: stage 3 (moderate) Qualified Code(s): N18.3 - Chronic kidney disease, stage 3 (moderate) (5) COPD (chronic obstructive pulmonary disease) Qualifiers: COPD type: emphysema Emphysema type: other Qualified Code(s): J43.8 - Other emphysema (6) Diabetes Qualifiers: Diabetes mellitus type: type 2 Diabetes mellitus complication status: with neurologic complications Diabetes mellitus complication detail: with unspecified neuropathy Qualified Code(s): E11.40 - Type 2 diabetes mellitus with diabetic neuropathy, unspecified
[2019-01-22] MEDS ORDERED: Warfarin perPT PO PRN (18:00)
[2019-01-22] MEDS: Latanoprost 2.5 ML BOTTLE BOTH EYES SCH (21:00)
[2019-01-23 03:37] LABS: Basophils % 0.1 %; Eosinophils # 0.2 K/mcL (0.0-0.6); Hematocrit 29.6 % (37.5-50.1); Hemoglobin 9.4 g/dL (12.9-16.9); Immature Granulocytes % 0.3 % (0-4); Lymphocytes # 1.1 K/mcL (0.6-4.6); Lymphocytes % 16.1 %; Mean Corpuscular HGB Conc 31.8 g/dL (31.6-35.5); Mean Corpuscular Hemoglobin 28.6 pg (28.0-33.3); Mean Platelet Volume 11.7 fL (9.4-12.4); Monocytes # 0.7 K/mcL (0.0-1.3); Monocytes % 9.4 %; Neutrophils # 4.9 K/mcL (1.6-8.9); Platelet Count 217 K/mcL (140-400); Red Blood Count 3.29 M/mcL (4.19-5.50); Red Cell Distribution Width 15.4 % (11.5-14.5); Segmented Neutrophils % 71.1 %
[2019-01-23 03:48] LABS: INR 3.8; Prothrombin Time 42.5 Seconds (9.4-12.1)
[2019-01-23 03:53] LABS: Calcium 8.6 mg/dL (8.6-10.3); Potassium 5.7 mEq/L (3.5-5.1)
[2019-01-23] MEDS: Cholecalciferol (D-3) 1,000 UNIT TABLET PO SCH (08:01)
[2019-01-23] MEDS: amLODIPine 5 MG TABLET PO SCH (08:01)
[2019-01-23] MEDS: Gabapentin 400 MG CAPSULE PO SCH (08:02)
[2019-01-23] MEDS: Cyanocobalamin (B-12) 1,000 MCG TABLET PO SCH (08:02)
[2019-01-23] MEDS: Furosemide 40 MG/4 ML VIAL IV SCH ×2 (08:02→17:03)
[2019-01-23] MEDS: hydrALAZINE 10 MG TABLET PO SCH ×2 (08:02→20:13)
[2019-01-23] MEDS: Insulin LISPRO 300 UNITS/3 ML VIAL SQ SCH ×4 (08:03→20:15)
--- NOTE | 2019-01-23 12:57 | Electrocardiograph Report ---
[address] [place], [place] [address] Test Date: 2019-01-21 Pat Name: Richard Duque Department: EXAM4 Room: 3A24 Gender: M Manager Fire: : 1945 Requested By: Mono Rhodes Order Number: [id number] Reading MD: Eduardo Fulton Measurements Intervals [place] Rate: 61 P: [place]: QRS: -18 QRSD: 117 T: 65 QT: 451 QTc: 455 Interpretive Statements Atrial fibrillation Nonspecific intraventricular conduction delay Electronically Signed On 01-23-2019 12:56:14 EDT by Eduardo Fulton
[2019-01-23 13:13] LABS: Calcium 8.5 mg/dL (8.6-10.3); Potassium 5.2 mEq/L (3.5-5.1)
[2019-01-23] MEDS: Gabapentin 300 MG CAPSULE PO SCH (20:11)
[2019-01-23] MEDS: Latanoprost 2.5 ML BOTTLE BOTH EYES SCH (20:15)
[2019-01-23] MEDS: Insulin DETEMIR 100 UNIT/ML X5UNITS SQ SCH (20:17)
[2019-01-24 04:47] LABS: Basophils % 0.3 %; Eosinophils # 0.3 K/mcL (0.0-0.6); Hematocrit 30.5 % (37.5-50.1); Hemoglobin 9.5 g/dL (12.9-16.9); Immature Granulocytes % 0.6 % (0-4); Lymphocytes # 1.1 K/mcL (0.6-4.6); Lymphocytes % 15.5 %; Mean Corpuscular HGB Conc 31.1 g/dL (31.6-35.5); Mean Corpuscular Hemoglobin 27.9 pg (28.0-33.3); Mean Corpuscular Volume 89.7 fL (83.0-100.0); Mean Platelet Volume 11.8 fL (9.4-12.4); Monocytes # 0.7 K/mcL (0.0-1.3); Monocytes % 10.3 %; Platelet Count 214 K/mcL (140-400); Red Cell Distribution Width 15.5 % (11.5-14.5); Segmented Neutrophils % 69.3 %
[2019-01-24 04:53] LABS: INR 2.8; Prothrombin Time 31.1 Seconds (9.4-12.1)
[2019-01-24 05:56] LABS: Calcium 8.6 mg/dL (8.6-10.3); Magnesium 2.8 mg/dL (1.6-2.6); Potassium 4.6 mEq/L (3.5-5.1)
[2019-01-24 06:25] VITALS: BP 135/58
[2019-01-24] MEDS ORDERED: Acetaminophen 325 MG TABLET PO PRN ×2 (06:37)
[2019-01-24] MEDS ORDERED: Furosemide 40 MG TABLET PO SCH (08:00)
[2019-01-24] MEDS: Insulin LISPRO 300 UNITS/3 ML VIAL SQ SCH ×2 (09:18→13:09)
[2019-01-24] MEDS: Cholecalciferol (D-3) 1,000 UNIT TABLET PO SCH (09:19)
[2019-01-24] MEDS: Cyanocobalamin (B-12) 1,000 MCG TABLET PO SCH (09:19)
[2019-01-24] MEDS: hydrALAZINE 10 MG TABLET PO SCH (09:21)
[2019-01-24] MEDS: Gabapentin 300 MG CAPSULE PO SCH (09:21)
[2019-01-24] MEDS: amLODIPine 5 MG TABLET PO SCH (09:21)
[2019-01-24] MEDS: Insulin DETEMIR 100 UNIT/ML X5UNITS SQ SCH (09:31)
--- NOTE | 2019-01-24 12:49 | Internal Med Progress Note ---
Hospitalist Progress Note - Encounter Date of Encounter: 01/23/19 Time of Encounter: 10:30 - Subjective Interval History: Patient lying down in bed and evaluated him. Denies any new complaints. Responding well to Lasix. No nausea or vomiting. Tolerating oral diet well. - Exam Vitals: Temp Pulse Resp BP Pulse Ox 97.9 F 60 15 135/58 93 01/24/19 06:20 01/24/19 06:20 01/24/19 06:20 01/24/19 06:20 01/24/19 06:20 Exam: General: Patient is alert, mild distress, oriented x 3 Respiratory: Good respiratory effort. Normal breath sounds. No wheezing or crackles. Cardiovascular: Regular rate and rhythm. s1 and s2 normal No clicks, rubs, gallops, or murmurs. Bilateral pedal edema/lymphedema Abdomen: Abdomen is soft, nontender. Bowel sounds are present Musculoskeletal: Spontaneously moving all extremities Skin: warm, dry, intact. Neuro: Alert oriented x 3 normal cranial nerves, no focal deficits - Assessment and Plan (1) Anasarca Current Visit: Yes Status: Acute (2) Atrial fibrillation Current Visit: No Status: Chronic (3) CHF (congestive heart failure) Current Visit: Yes Status: Chronic (4) CKD (chronic kidney disease) Current Visit: Yes Status: Chronic (5) COPD (chronic obstructive pulmonary disease) Current Visit: Yes Status: Chronic (6) Diabetes Current Visit: Yes Status: Chronic (7) Urinary retention with incomplete bladder emptying Current Visit: Yes Status: Acute DVT Prophylaxis: Patient is on Coumadin - Summary of Assessment and Plan Summary of Assessment and Plan: Generalized anasarca/fluid overload: Continue IV Lasix today. Transition to oral Lasix tomorrow. Acute urinary retention: Status post Larios catheter insertion. Urology consult appreciated. Plan to discharge patient with Larios catheter and outpatient follow-up with urology Acute on chronic diastolic congestive heart failure: Continue IV Lasix. Good response so far. Continue monitoring urine output Diabetes mellitus type 2: Increase insulin regimen her blood sugars are elevated COPD: Not in acute exacerbation. Will place patient on bronchodilators as needed. Chronic kidney disease stage III: Creatinine slightly worse today. Patient did receive received Kayexalate this morning and potassium has improved. Continue monitoring renal function. Transition to oral Lasix tomorrow. Atrial fibrillation: Chronic A. fib per history. No new episodes of bradycardia at this time. On Coumadin for anticoagulation. - Time Spent with Patient Total time spent is greater than 50% in coordination of care (as documented) at patient's floor/unit and/or counseling patient: Internal Medicine: Result - Labs CBC & Chem 7: 01/24/19 04:03 01/24/19 05:13 Labs: Short CBC 01/24/19 Range/Units 04:03 WBC 7.2 (4.3-11.1) K/mcL Hgb 9.5 L (12.9-16.9) g/dL Hct 30.5 L (37.5-50.1) % Plt Count 214 (140-400) K/mcL Neutrophils # 5.0 (1.6-8.9) K/mcL BMP 01/23/19 01/24/19 12:28 05:13 Sodium 136 136 Potassium 5.2 H 4.6 Chloride 103 105 Carbon Dioxide 23 24 BUN 104 H 104 H Creatinine 2.75 H 2.43 H Glucose 263 H 246 H Calcium 8.5 L 8.6 - ABG Interpretation ABG results: PT/INR, D-dimer PT 31.1 Seconds (9.4-12.1) H 01/24/19 04:03 Consult Discharge Plan - Plan [facility]: [facility]Primary Care Provider[facility] - (2) Atrial fibrillation Qualifiers: Atrial fibrillation type: chronic Qualified Code(s): I48.2 - Chronic atrial fibrillation (3) CHF (congestive heart failure) Qualifiers: Heart failure type: diastolic Heart failure chronicity: chronic Qualified Code(s): I50.32 - Chronic diastolic (congestive) heart failure (4) CKD (chronic kidney disease) Qualifiers: Chronic kidney disease stage: stage 3 (moderate) Qualified Code(s): N18.3 - Chronic kidney disease, stage 3 (moderate) (5) COPD (chronic obstructive pulmonary disease) Qualifiers: COPD type: emphysema Emphysema type: other Qualified Code(s): J43.8 - Other emphysema (6) Diabetes Qualifiers: Diabetes mellitus type: type 2 Diabetes mellitus complication status: with neurologic complications Diabetes mellitus complication detail: with unspecified neuropathy Qualified Code(s): E11.40 - Type 2 diabetes mellitus with diabetic neuropathy, unspecified
--- NOTE | 2019-01-24 12:55 | Discharge Summary ---
- NOTES TO OUTPATIENT PROVIDER Notes to Outpatient Provider: Patient was hospitalized here with generalized anasarca, worsening bilateral lower extremity edema. He was also having urinary retention. Larios catheter placed per urology. Patient has been receiving IV Lasix with good response. He is stable to be discharged home today. He will continue to take oral Lasix at 80 mg twice daily. Also to remain on fluid restriction. He will follow up with urology for further management of urinary retention. Patient does have chronic kidney disease and needs to follow up with nephrology as outpatient Orders not resulted at time of discharge: Pending orders 01/21/19 19:27 Culture,Blood [BC] Stat 01/25/19 04:00 INR/PT [Prothrombin Time INR] [COAG] AM 0400 Date of Encounter: 01/24/19 Time of Encounter: 12:50 - Discharge Diagnosis (1) Anasarca Priority: Primary Status: Acute (2) Atrial fibrillation Priority: Secondary Status: Chronic Qualifiers: Atrial fibrillation type: chronic Qualified Code(s): I48.2 - Chronic atrial fibrillation (3) CHF (congestive heart failure) Priority: Secondary Status: Chronic Qualifiers: Heart failure type: diastolic Heart failure chronicity: chronic Qualified Code(s): I50.32 - Chronic diastolic (congestive) heart failure (4) CKD (chronic kidney disease) Priority: Secondary Status: Chronic Qualifiers: Chronic kidney disease stage: stage 3 (moderate) Qualified Code(s): N18.3 - Chronic kidney disease, stage 3 (moderate) (5) COPD (chronic obstructive pulmonary disease) Priority: Secondary Status: Chronic Qualifiers: COPD type: emphysema Emphysema type: other Qualified Code(s): J43.8 - Other emphysema (6) Diabetes Priority: Secondary Status: Chronic Qualifiers: Diabetes mellitus type: type 2 Diabetes mellitus complication status: with neurologic complications Diabetes mellitus complication detail: with unspecified neuropathy Qualified Code(s): E11.40 - Type 2 diabetes mellitus with diabetic neuropathy, unspecified (7) Urinary retention with incomplete bladder emptying Priority: Secondary Status: Acute Hospital course: Mr. Duque is a 73 year old male patient with history of diabetes, hypertension, chronic kidney disease stage III, was hospitalized here with generalized anasarca, worsening bilateral lower extremity edema. He was hypoglycemic initially and He was also having urinary retention. Larios catheter placed by urology. Patient has since been receiving IV Lasix with good response. He has been transitioned to oral Lasix. Patient does have history of atrial fibrillation and is on anticoagulation with Coumadin. His INR was elevated but has since come down to a therapeutic level. He is advised to continue using Coumadin according to his usual dosing regimen and follow up with his Coumadin clinic or primary care provider. He is stable to be discharged home today. He will continue to take oral Lasix at 80 mg twice daily. Also to remain on fluid restriction. He will follow up with urology for further management of urinary retention. Discharge discussed with: patient, nurse, case management - Time Spent with Patient Total time spent providing and/or coordinating discharge services: Time spent: Greater than 30 minutes (35 min) - Discharge Medications Prescriptions: New Gabapentin [Neurontin] 600 mg PO BID #90 capsule Furosemide [Lasix] 80 mg PO BIDDIURETIC #120 tablet Continued Allopurinol [Zyloprim 100 MG] 200 mg PO HS Allopurinol [Zyloprim 100 MG] 100 mg PO QAM amLODIPine [Norvasc] 5 mg PO BID Atenolol [Tenormin] 25 mg PO BID Brimonidine 0.2% [Alphagan] 1 drop BOTH EYES BID Cholecalciferol (D-3) [Vitamin D] 2,000 unit PO DAILY Cyanocobalamin (Vitamin B-12) [Vitamin B-12] 500 mcg PO DAILY hydrALAZINE [HydrALAZINE] 10 mg PO BID Latanoprost [Xalatan] 1 drop BOTH EYES HS Simvastatin [Zocor] 20 mg PO HS Subcutaneous Insulin Pump [T:Slim] 1 each MC AD Tamsulosin [Flomax] 0.4 mg PO DAILY Warfarin [Coumadin] 5 mg PO SUMOTUWETHSA OxyCODONE Immed Rel [Roxicodone 5 MG] 10 mg PO Q6HR Dextrose [Trueplus Glucose] 15 gm PO DAILY PRN PRN Reason: Hypoglycemia Lidocaine 1 appl TP BID PRN PRN Reason: Pain Miconazole Nitrate [Anti-Fungal Powder] 1 appl TP BID Polyethylene Glycol 3350 [MiraLAX] 17 gm PO DAILY Warfarin [Coumadin] 7.5 mg PO FR Discontinued Gabapentin [Neurontin] 800 mg PO BID Phenazopyridine HCl 200 mg PO TID Torsemide 100 mg PO DAILY Home Medications: Allopurinol [Zyloprim 100 MG] 100 mg PO QAM 12/26/18 [History] Allopurinol [Zyloprim 100 MG] 200 mg PO HS 12/26/18 [History] Atenolol [Tenormin] 25 mg PO BID 12/26/18 [History] Brimonidine 0.2% [Alphagan] 1 drop BOTH EYES BID 12/26/18 [History] Cholecalciferol (D-3) [Vitamin D] 2,000 unit PO DAILY 12/26/18 [History] Cyanocobalamin (Vitamin B-12) [Vitamin B-12] 500 mcg PO DAILY 12/26/18 [History] Latanoprost [Xalatan] 1 drop BOTH EYES HS 12/26/18 [History] OxyCODONE Immed Rel [Roxicodone 5 MG] 10 mg PO Q6HR 12/26/18 [History] Simvastatin [Zocor] 20 mg PO HS 12/26/18 [History] Subcutaneous Insulin Pump [T:Slim] 1 each MC AD 12/26/18 [History] Tamsulosin [Flomax] 0.4 mg PO DAILY 12/26/18 [History] Warfarin [Coumadin] 5 mg PO SUMOTUWETHSA 12/26/18 [History] amLODIPine [Norvasc] 5 mg PO BID 12/26/18 [History] hydrALAZINE [HydrALAZINE] 10 mg PO BID 12/26/18 [History] Dextrose [Trueplus Glucose] 15 gm PO DAILY PRN 01/23/19 [History] Lidocaine 1 appl TP BID PRN 01/23/19 [History] Miconazole Nitrate [Anti-Fungal Powder] 1 appl TP BID 01/23/19 [History] Polyethylene Glycol 3350 [MiraLAX] 17 gm PO DAILY 01/23/19 [History] Warfarin [Coumadin] 7.5 mg PO FR 01/23/19 [History] Furosemide [Lasix] 80 mg PO BIDDIURETIC #120 tablet 01/24/19 [Rx] Gabapentin [Neurontin] 600 mg PO BID #90 capsule 01/24/19 [Rx] Allergies/Adverse Reactions: Allergy/AdvReac Type Severity Reaction Status Date / Time ciprofloxacin [From Cipro] AdvReac Nausea Verified 12/26/18 12:11 morphine AdvReac Nausea Verified 12/26/18 12:11 Saxagliptin [From Onglyza] AdvReac Nausea Verified 12/26/18 12:11 sulfamethoxazole AdvReac Nausea Verified 12/26/18 12:11 [From Bactrim] trimethoprim [From Bactrim] AdvReac Nausea Verified 12/26/18 12:11 Date of admission: 01/23/19 17:50 [facility] care physician[facility] Consults: 01/21/19 20:14 Consult to Urology [CONS] Stat Consulting Provider: Urology Cathy Reason for Consult: Urinary retention Call Completed: Yes 01/21/19 23:25 Consult to Grinder Dresser [CONS] Routine Reason for SW Consult: Discharge planning. May need home health or SNF. 01/23/19 12:01 PT [Consult to Physical Therapy] [CONS] Routine Comment: Evaluate, develop and implement POC Reason for Consult: weakness Does patient have active BEDREST order?: No Is patient medically & hemodynamically stable?: Yes Patient assessed for mobility or mobilized this visit?: No 01/23/19 12:02 OT [Consult to Occupational Therapy] [CONS] Routine Comment: Evaluate, develop and implement POC Reason for Consult: weakness Does patient have active BEDREST order?: No Is patient medically & hemodynamically stable?: Yes Patient assessed for mobility or mobilized this visit?: No Discharging clinician: Kezia Kenny Anticipated date of discharge: 01/24/19 - Constitutional Vitals: Temp Pulse Resp BP Pulse Ox 97.9 F 60 15 135/58 93 01/24/19 06:20 01/24/19 06:20 01/24/19 06:20 01/24/19 06:20 01/24/19 06:20 General appearance: Present: cooperative, A&O X 3, morbidly obese, answers questions appropriately Exam: . - Respiratory Respiratory exam: Present: CTAB. Absent: accessory muscle use, rales, rhonchi, wheezes - Cardiovascular Cardiovascular exam: Present: RRR, +S1, +S2. Absent: diastolic murmur, gallop, rubs, systolic murmur - GI/Abdominal GI/Abdominal exam: Present: normal bowel sounds, soft, no peritoneal signs. Absent: distended, tenderness - Extremities Exam Extremities exam: Present: pedal edema Additional comments: Bilateral pedal edema/lymphedema. Significantly improved since admission - Patient Status Disposition: Home Health Service Condition: Fair Functional capacity at discharge: wheelchair bound Overall status at discharge: patient is progressing back to baseline - Ambulatory Orders Ambulatory Orders: Basic Metabolic Panel [CHEM] Time Frame: 3 Days, Facility: [facility], Location: Lab - Discharge Instructions Instructions: Heart Failure (DC) Follow Up With: [facility] [Primary Care Provider[facility] - (In 1 week) Forms: ED Satisfaction Letter - Diet and Activity Activity: increase activity as tolerated Diet: low fat, low cholesterol, low salt diet, other (Fluid restriction to 1.5 L per day)
--- NOTE | 2019-01-24 13:05 | Physician Discharge Referral ---
Home Health/Hosp Referral Info Transfer to: Home Health Provider in Charge Post Discharge: PCP - Diagnosis (1) Anasarca Priority: Primary Status: Acute (2) Atrial fibrillation Priority: Secondary Status: Chronic (3) CHF (congestive heart failure) Priority: Secondary Status: Chronic (4) CKD (chronic kidney disease) Priority: Secondary Status: Chronic (5) COPD (chronic obstructive pulmonary disease) Priority: Secondary Status: Chronic (6) Diabetes Priority: Secondary Status: Chronic (7) Urinary retention with incomplete bladder emptying Priority: Secondary Status: Acute - Respiratory Orders Smoking Cessation: Smoking cessation has been advised. For more information, call the [place] Tobacco Quit Line at 0-457-MDKI-NOW. - Diet/Nutrition Diet/Nutrition Orders: Cardiac (Fluid restriction to 1.5 L per day), No Concentrated Sweets (Diabetic diet.) - Activity Activity Orders: Walker (Up with assist) - Services Needed Following services are medically necessary services: Nursing, Home Health Aide, Physical Therapy, Occupational Therapy - Transfer Medications Prescriptions: Furosemide [Lasix] 80 mg PO BIDDIURETIC #120 tablet Gabapentin [Neurontin] 600 mg PO BID #90 capsule Home Medications: Allopurinol [Zyloprim 100 MG] 100 mg PO QAM 12/26/18 [History] Allopurinol [Zyloprim 100 MG] 200 mg PO HS 12/26/18 [History] Atenolol [Tenormin] 25 mg PO BID 12/26/18 [History] Brimonidine 0.2% [Alphagan] 1 drop BOTH EYES BID 12/26/18 [History] Cholecalciferol (D-3) [Vitamin D] 2,000 unit PO DAILY 12/26/18 [History] Cyanocobalamin (Vitamin B-12) [Vitamin B-12] 500 mcg PO DAILY 12/26/18 [History] Latanoprost [Xalatan] 1 drop BOTH EYES HS 12/26/18 [History] OxyCODONE Immed Rel [Roxicodone 5 MG] 10 mg PO Q6HR 12/26/18 [History] Simvastatin [Zocor] 20 mg PO HS 12/26/18 [History] Subcutaneous Insulin Pump [T:Slim] 1 each MC AD 12/26/18 [History] Tamsulosin [Flomax] 0.4 mg PO DAILY 12/26/18 [History] Warfarin [Coumadin] 5 mg PO SUMOTUWETHSA 12/26/18 [History] amLODIPine [Norvasc] 5 mg PO BID 12/26/18 [History] hydrALAZINE [HydrALAZINE] 10 mg PO BID 12/26/18 [History] Dextrose [Trueplus Glucose] 15 gm PO DAILY PRN 01/23/19 [History] Lidocaine 1 appl TP BID PRN 01/23/19 [History] Miconazole Nitrate [Anti-Fungal Powder] 1 appl TP BID 01/23/19 [History] Polyethylene Glycol 3350 [MiraLAX] 17 gm PO DAILY 01/23/19 [History] Warfarin [Coumadin] 7.5 mg PO FR 01/23/19 [History] Furosemide [Lasix] 80 mg PO BIDDIURETIC #120 tablet 01/24/19 [Rx] Gabapentin [Neurontin] 600 mg PO BID #90 capsule 01/24/19 [Rx] Allergies/Adverse Reactions: Allergy/AdvReac Type Severity Reaction Status Date / Time ciprofloxacin [From Cipro] AdvReac Nausea Verified 12/26/18 12:11 morphine AdvReac Nausea Verified 12/26/18 12:11 Saxagliptin [From Onglyza] AdvReac Nausea Verified 12/26/18 12:11 sulfamethoxazole AdvReac Nausea Verified 12/26/18 12:11 [From Bactrim] trimethoprim [From Bactrim] AdvReac Nausea Verified 12/26/18 12:11 Certification: Further, I certify that my clinical findings support that this patient is homebound (i.e. absences from home require considerable and taxing effort and are for medical reasons or sikh services or infrequently or short duration when for other reasons) because: Homebound Reason: Patient requires assistance of a person or device to safely leave home Attestation: My signature below is to certify that this patient is under my care and that I, or nurse practitioner, or a physician's photography assistant working with me, has a [id number] encounter with this patient.
--- NOTE | 2019-01-24 14:23 | Electrocardiograph Report ---
[address] [address] Test Date: 2019-01-24 Pat Name: Richard Duque Department: 115 Room: 3A24 Gender: M Youth Leader: RYANNE : 1945 Requested By: Tomy Patterson Order Number: [id number] Reading MD: Clay Lynne Measurements Intervals [place] Rate: 61 P: GA: 0 QRS: -26 QRSD: 114 T: 55 QT: 456 QTc: 460 Interpretive Statements ATRIAL Fibrillation BORDERLINE LEFT AXIS DEVIATION Electronically Signed On 01-24-2019 14:22:10 EDT by Clay Lynne
[2019-01-24] MEDS ORDERED: *HR* Warfarin 4 MG TABLET PO ONE (18:00)
== END 2019-01-24 18:13 | disposition home health service (06) | DRG 291 ==
LOC: 3ANU 17:42 → EMEROOARM 17:42 → SUATTDRO 21:25 → 3ANU 21:41
PROVIDERS: ADMIT Internal Medicine; ATTEND Internal Medicine

== ENCOUNTER 2019-02-09 16:54 | Observation (INO) ==
[2019-02-09] MEDS ORDERED: *HR* Dextrose 50 % in Water (Syg) 50 ML SYRINGE IVP PRN ×2 (17:09→19:56)
--- NOTE | 2019-02-09 17:32 | Emergency Department Note ---
Disposition Clinical Impression: Hyperglycemia, Cystitis UTI (urinary tract infection) Qualifiers: Urinary tract infection type: site unspecified Hematuria presence: with hematuria Qualified Code(s): N39.0 - Urinary tract infection, site not specified Disposition: Admitted As Inpatient Condition: Fair [facility] - Time of Disposition: 19:47 General Adult HPI - General Stated complaint: High Blood Sugar Time Seen by Provider: 02/09/19 17:01 - History of Present Illness HPI Narrative: Mr. Duque is a 73-year-old male presenting to the ED by his due to elevated glucose. Per he has an insulin pump and his glucose has been elevated. She reports overall he does not appear to be feeling well. The patient appears frustrated and does not want to be here in the hospital. He is complaining of pain in his buttocks and bilateral lower legs. Per he has chronic Larios which was supposed to be removed today by home health. She reports that he was recently because of the hospital was discharged on 02/03/19 treated for CHF. Reports that he just completed his last dose of oral antibiotics yesterday for cellulitis. He is denying fever, chills, nausea, emesis, chest pain, abdominal pain, diarrhea. Pain Scale: 0 - Related Data Home Medications Medication Instructions Recorded Confirmed Allopurinol [Zyloprim 100 MG] 100 mg PO [facility] 12/26/18 01/27/19 Allopurinol [Zyloprim 100 MG] 200 mg PO 12/26/18 01/27/19 Atenolol [Tenormin] 25 mg PO BID 12/26/18 01/27/19 Brimonidine 0.2% [Alphagan] 1 drop BOTH EYES BID 12/26/18 01/27/19 Cholecalciferol (D-3) [Vitamin D] 2,000 unit PO DAILY 12/26/18 01/27/19 Cyanocobalamin (Vitamin B-12) 500 mcg PO DAILY 12/26/18 01/27/19 [Vitamin B-12] Latanoprost [Xalatan] 1 drop BOTH EYES HS 12/26/18 01/27/19 OxyCODONE Immed Rel [Roxicodone 5 10 mg PO Q6HR PRN 12/26/18 01/27/19 MG] Simvastatin [Zocor] 20 mg PO HS 12/26/18 01/27/19 Subcutaneous Insulin Pump [T:Slim] 1 each [facility] AD 12/26/18 01/27/19 Tamsulosin [Flomax] 0.4 mg PO DAILY 12/26/18 01/27/19 Warfarin [Coumadin] 5 mg PO SUMOTUWETHSA 12/26/18 01/27/19 Dextrose [Trueplus Glucose] 15 gm PO DAILY PRN 01/23/19 01/27/19 Lidocaine 1 appl TP BID PRN 01/23/19 01/27/19 Miconazole Nitrate [Anti-Fungal 1 appl TP BID 01/23/19 01/27/19 Powder] Polyethylene Glycol 3350 [MiraLAX] 17 gm PO DAILY 01/23/19 01/27/19 Warfarin [Coumadin] 7.5 mg PO FR 01/23/19 01/27/19 Melatonin [Melatin] 9 mg PO HS 01/26/19 01/27/19 Previous Rx's Medication Instructions Recorded Furosemide [Lasix] 80 mg PO BIDDIURETIC #120 tablet 01/24/19 Cefdinir [Omnicef] 300 mg PO BID #10 capsule 02/03/19 Doxycycline 100 mg PO BID #10 capsule 02/03/19 Gabapentin [Neurontin] 300 mg PO BID #60 capsule 02/03/19 hydrALAZINE [HydrALAZINE] 25 mg PO BID #60 tablet 02/03/19 metOLazone [Zaroxolyn] 5 mg PO DAILY@0730 #30 tablet 02/03/19 Allergies Allergy/AdvReac Type Severity Reaction Status Date / Time ciprofloxacin [From Cipro] AdvReac Nausea Verified 12/26/18 12:11 morphine AdvReac Nausea Verified 12/26/18 12:11 Saxagliptin [From Onglyza] AdvReac Nausea Verified 12/26/18 12:11 sulfamethoxazole AdvReac Nausea Verified 12/26/18 12:11 [From Bactrim] trimethoprim [From Bactrim] AdvReac Nausea Verified 12/26/18 12:11 Constitutional: Denies: fever, chills, weakness Eyes: Denies: eye pain, vision change ENT ED: Denies: ear pain, congestion, dysphagia Cardiovascular: Reports: edema (Bilateral lower extremities). Denies: chest pain, palpitations Respiratory: Denies: cough, dyspnea, wheezes Gastrointestinal: Denies: abdominal pain, nausea, vomiting Genitourinary: Denies: urgency, dysuria, hematuria Musculoskeletal: Reports: other (Complaining of pain in his buttock) Integumentary: Reports: other (Concerned for on his buttocks due to pain; complaining of worsening lower extremity ulceration) Neurological: Denies: headache, weakness Endocrine: Reports: fatigue Past Medical History - Past Medical History Medical history: Reports: arthritis, atrial fibrillation, cirrhosis, CHF, COPD, diabetes, glaucoma, hypertension, renal disease Surgical history: Reports: knee replacement Psychiatric history: Reports: PTSD - Social History Smoking Status: Former smoker Smokeless Tobacco Status: No Alcohol use: Reports: none Drug use: Reports: none Physical Exam - General General appearance: alert - Head Head exam: atraumatic, normocephalic - Eye Eye exam: Present: normal appearance, EOMI. Absent: scleral icterus - ENT ENT exam: normal exam, normal oropharynx, mucous membranes moist - Neck Neck exam: Present: normal inspection, trachea midline - Chest Chest inspection: Present: normal inspection, symmetric chest wall rise - Respiratory Respiratory exam: Present: normal lung sounds bilaterally. Absent: respiratory distress, wheezes - Cardiovascular Cardiovascular exam: Present: irregular rhythm, other (In atrial fibrillation, rate controlled) - Abdominal Exam Abdominal exam: Present: soft, Non-Tender. Absent: distention, guarding - Extremities Exam Extremities exam: Present: tenderness (Tenderness all across bilateral legs), pedal edema (+3 bilateral pitting edema). Absent: calf tenderness - Neurological Exam Neurological exam: Present: alert, oriented X3 (To person place and time) - Psychiatric Psychiatric exam: Present: flat affect - Skin Skin exam: Present: erythema (Bilateral legs), other (Ulcerations bilateral legs) Course Vital Signs Temperature 98.4 F 02/09/19 17:09 Pulse Rate 73 02/09/19 17:09 Respiratory Rate 24 02/09/19 17:09 Blood Pressure 129/52 02/09/19 17:09 O2 Sat by Pulse Oximetry 94 02/09/19 17:09 Temperature 98.4 F 02/09/19 17:09 Pulse Rate 66 02/09/19 19:37 Respiratory Rate 24 02/09/19 19:37 Blood Pressure 112/51 02/09/19 19:37 O2 Sat by Pulse Oximetry 96 02/09/19 19:37 Oxygen Delivery Oxygen Delivery Room Air Medical Decision Making - MDM Narrative Medical decision making narrative: Mr. Duque is a 73-year-old male presented to the ED his complaining that his glucose has been elevated recently. At home he is on an insulin pump. A dditionally patient's reporting pain in his buttocks. He is also complaining of bilateral lower extremity pain. reports that overall he does not appear to be feeling well. 1730 Lactic acid is 2.4. His glucose is elevated at 585. His CT of the abdomen shows bladder thickening as well had an indwelling Larios. CT also shows mesenteric adenopathy. 10 units of insulin is ordered as well as a liter of IV fluid. Vancomycin and Zosyn has also been started for urosepsis. GCS score is noted to be 14 appears to have some changes in mental status no less arousable does not spontaneously open his eyes and arousable to pain. His verbal response is limited. Concern for changes in mental status due to early sepsis 1937. Spoke with the admitting hospitalist and he will be admitted inpatient. 1946 - Medical Records Medical records reviewed: Yes I reviewed the patient's medical records. - Lab Data Lab results reviewed: Yes I reviewed the patient's lab results. Result diagrams: 02/09/19 17:30 02/09/19 17:30 Lab Results 02/09/19 02/09/19 02/09/19 Range/Units 17:30 17:30 17:30 WBC 7.2 (4.3-11.1) K/mcL RBC 3.51 L (4.19-5.50) M/mcL Hgb 10.0 L (12.9-16.9) g/dL Hct 31.4 L (37.5-50.1) % MCV 89.5 (83.0-100.0) fL MCH 28.5 (28.0-33.3) pg MCHC 31.8 (31.6-35.5) g/dL RDW 16.4 H (11.5-14.5) % Plt Count 154 (140-400) K/mcL MPV 13.3 H (9.4-12.4) fL Immature Gran % 0.8 (0-4) % Seg Neutrophils % 70.5 % Lymphocytes % 15.3 % Monocytes % 8.0 % Eosinophils % 5.1 % Basophils % 0.3 % Neutrophils # 5.1 (1.6-8.9) K/mcL Lymphocytes # 1.1 (0.6-4.6) K/mcL Monocytes # 0.6 (0.0-1.3) K/mcL Eosinophils # 0.4 (0.0-0.6) K/mcL Basophils # 0.0 (0.0-0.2) K/mcL VBG pH (7.32-7.42) pH Units VBG pCO2 (41-51) mmHg VBG pO2 (25-50) mmHg VBG HCO3 (21-27) mEq/L Sodium 129 L (136-145) mEq/L Potassium 4.7 (3.5-5.1) mEq/L Chloride 95 L (98-107) mEq/L Carbon Dioxide 26 (23-29) mEq/L BUN 91 H (8-23) mg/dL Creatinine 2.31 H (0.70-1.30) mg/dL Est GFR ( Amer) 34 L (> 60) Est GFR (Non-Af Amer) 28 L (> 60) BUN/Creatinine Ratio 39 H (6-26) Glucose 585 H* (70-105) mg/dL Est Mean Plasma Glucose mg/dl Hemoglobin A1c ( - 5.6) % Calculated Osmolality 323 H (280-300) Lactic Acid (0.5-2.2) mmol/L Calcium 8.6 (8.6-10.3) mg/dL Phosphorus 3.8 (2.7-4.5) mg/dL Magnesium 2.1 (1.6-2.6) mg/dL Total Bilirubin 0.9 (0.3-1.0) mg/dL AST 33 (13-39) Units/L ALT 28 (7-52) Units/L Alkaline Phosphatase 110 H (34-104) Units/L Serum Total Protein 7.0 (6.4-8.9) g/dL Albumin 2.6 L (3.5-5.7) g/dL Globulin 4.4 H (2.4-3.5) g/dL Albumin/Globulin Ratio 0.6 L (1.1-2.2) Beta-Hydroxybutyric Acd (0.02-0.27) mmol/L Urine Color Yellow (Yellow) Urine Clarity Turbid A (Clear) Urine pH 5.5 (5.0-8.0) pH Units Ur Specific [place] 1.008 L (1.010-1.025) Urine Protein 100 H (Neg-Trace) mg/dL Urine Glucose (UA) 500 H (Normal) mg/dL Urine Ketones Negative (Negative) mg/dL Urine Blood Moderate H (Negative) Urine Nitrite Negative (Negative) Urine Bilirubin Negative (Negative) Urine Urobilinogen Normal (Normal) mg/dL Ur Leukocyte Esterase Large H (Negative) Urine Microscopic RBC Present (0-3) per hpf Urine Microscopic WBC TNTC H (0-3) per hpf Ur Squamous Epith Cells Many H (None-Few) per lpf Urine Bacteria None Seen (None-Few) per hpf Hyaline Casts TNP Urine Yeast Many H (None Seen) per hpf Ur Culture Indicated? YES A (NO) 02/09/19 02/09/19 02/09/19 Range/Units 17:30 17:30 17:30 WBC (4.3-11.1) K/mcL RBC (4.19-5.50) M/mcL Hgb (12.9-16.9) g/dL Hct (37.5-50.1) % MCV (83.0-100.0) fL MCH (28.0-33.3) pg MCHC (31.6-35.5) g/dL RDW (11.5-14.5) % Plt Count (140-400) K/mcL MPV (9.4-12.4) fL Immature Gran % (0-4) % Seg Neutrophils % % Lymphocytes % % Monocytes % % Eosinophils % % Basophils % % Neutrophils # (1.6-8.9) K/mcL Lymphocytes # (0.6-4.6) K/mcL Monocytes # (0.0-1.3) K/mcL Eosinophils # (0.0-0.6) K/mcL Basophils # (0.0-0.2) K/mcL VBG pH (7.32-7.42) pH Units VBG pCO2 (41-51) mmHg VBG pO2 (25-50) mmHg VBG HCO3 (21-27) mEq/L Sodium (136-145) mEq/L Potassium (3.5-5.1) mEq/L Chloride (98-107) mEq/L Carbon Dioxide (23-29) mEq/L BUN (8-23) mg/dL Creatinine (0.70-1.30) mg/dL Est GFR ( Amer) (> 60) Est GFR (Non-Af Amer) (> 60) BUN/Creatinine Ratio (6-26) Glucose (70-105) mg/dL Est Mean Plasma Glucose 180 mg/dl Hemoglobin A1c 7.9 H ( - 5.6) % Calculated Osmolality (280-300) Lactic Acid 2.4 H (0.5-2.2) mmol/L Calcium (8.6-10.3) mg/dL Phosphorus (2.7-4.5) mg/dL Magnesium (1.6-2.6) mg/dL Total Bilirubin (0.3-1.0) mg/dL AST (13-39) Units/L ALT (7-52) Units/L Alkaline Phosphatase (34-104) Units/L Serum Total Protein (6.4-8.9) g/dL Albumin (3.5-5.7) g/dL Globulin (2.4-3.5) g/dL Albumin/Globulin Ratio (1.1-2.2) Beta-Hydroxybutyric Acd 0.18 (0.02-0.27) mmol/L Urine Color (Yellow) Urine Clarity (Clear) Urine pH (5.0-8.0) pH Units Ur Specific [place] (1.010-1.025) Urine Protein (Neg-Trace) mg/dL Urine Glucose (UA) (Normal) mg/dL Urine Ketones (Negative) mg/dL Urine Blood (Negative) Urine Nitrite (Negative) Urine Bilirubin (Negative) Urine Urobilinogen (Normal) mg/dL Ur Leukocyte Esterase (Negative) Urine Microscopic RBC (0-3) per hpf Urine Microscopic WBC (0-3) per hpf Ur Squamous Epith Cells (None-Few) per lpf Urine Bacteria (None-Few) per hpf Hyaline Casts Urine Yeast (None Seen) per hpf Ur Culture Indicated? (NO) 02/09/19 Range/Units 17:55 WBC (4.3-11.1) K/mcL RBC (4.19-5.50) M/mcL Hgb (12.9-16.9) g/dL Hct (37.5-50.1) % MCV (83.0-100.0) fL MCH (28.0-33.3) pg MCHC (31.6-35.5) g/dL RDW (11.5-14.5) % Plt Count (140-400) K/mcL MPV (9.4-12.4) fL Immature Gran % (0-4) % Seg Neutrophils % % Lymphocytes % % Monocytes % % Eosinophils % % Basophils % % Neutrophils # (1.6-8.9) K/mcL Lymphocytes # (0.6-4.6) K/mcL Monocytes # (0.0-1.3) K/mcL Eosinophils # (0.0-0.6) K/mcL Basophils # (0.0-0.2) K/mcL VBG pH 7.39 (7.32-7.42) pH Units VBG pCO2 39 L (41-51) mmHg VBG pO2 149 H (25-50) mmHg VBG HCO3 24 (21-27) mEq/L Sodium (136-145) mEq/L Potassium (3.5-5.1) mEq/L Chloride (98-107) mEq/L Carbon Dioxide (23-29) mEq/L BUN (8-23) mg/dL Creatinine (0.70-1.30) mg/dL Est GFR ( Amer) (> 60) Est GFR (Non-Af Amer) (> 60) BUN/Creatinine Ratio (6-26) Glucose (70-105) mg/dL Est Mean Plasma Glucose mg/dl Hemoglobin A1c ( - 5.6) % Calculated Osmolality (280-300) Lactic Acid (0.5-2.2) mmol/L Calcium (8.6-10.3) mg/dL Phosphorus (2.7-4.5) mg/dL Magnesium (1.6-2.6) mg/dL Total Bilirubin (0.3-1.0) mg/dL AST (13-39) Units/L ALT (7-52) Units/L Alkaline Phosphatase (34-104) Units/L Serum Total Protein (6.4-8.9) g/dL Albumin (3.5-5.7) g/dL Globulin (2.4-3.5) g/dL Albumin/Globulin Ratio (1.1-2.2) Beta-Hydroxybutyric Acd (0.02-0.27) mmol/L Urine Color (Yellow) Urine Clarity (Clear) Urine pH (5.0-8.0) pH Units Ur Specific [place] (1.010-1.025) Urine Protein (Neg-Trace) mg/dL Urine Glucose (UA) (Normal) mg/dL Urine Ketones (Negative) mg/dL Urine Blood (Negative) Urine Nitrite (Negative) Urine Bilirubin (Negative) Urine Urobilinogen (Normal) mg/dL Ur Leukocyte Esterase (Negative) Urine Microscopic RBC (0-3) per hpf Urine Microscopic WBC (0-3) per hpf Ur Squamous Epith Cells (None-Few) per lpf Urine Bacteria (None-Few) per hpf Hyaline Casts Urine Yeast (None Seen) per hpf Ur Culture Indicated? (NO) - Radiology Data Radiology results reviewed: Yes I reviewed the patient's radiology results.
[2019-02-09 17:55] LABS: Basophils % 0.3 %; Bilirubin,Urine Negative (Negative); Blood,Urine Moderate (Negative); Clarity,Urine Turbid (Clear); Color,Urine Yellow (Yellow); Eosinophils # 0.4 K/mcL (0.0-0.6); Eosinophils % 5.1 %; Glucose,Urine (UA) 500 mg/dL (Normal); Hematocrit 31.4 % (37.5-50.1); Immature Granulocytes % 0.8 % (0-4); Ketones,Urine Negative (Negative); Leukocyte Esterase,Urine Large (Negative); Lymphocytes # 1.1 K/mcL (0.6-4.6); Lymphocytes % 15.3 %; Mean Corpuscular HGB Conc 31.8 g/dL (31.6-35.5); Mean Corpuscular Hemoglobin 28.5 pg (28.0-33.3); Mean Corpuscular Volume 89.5 fL (83.0-100.0); Mean Platelet Volume 13.3 fL (9.4-12.4); Monocytes # 0.6 K/mcL (0.0-1.3); Neutrophils # 5.1 K/mcL (1.6-8.9); Nitrite,Urine Negative (Negative); PH,Urine 5.5 pH Units (5.0-8.0); Platelet Count 154 K/mcL (140-400); Protein,Urine 100 mg/dL (Neg-Trace); Red Blood Count 3.51 M/mcL (4.19-5.50); Red Cell Distribution Width 16.4 % (11.5-14.5); Segmented Neutrophils % 70.5 %; Specific Gravity,Urine 1.008 (1.010-1.025); Urobilinogen,Urine Normal (Normal); White Blood Count 7.2 K/mcL (4.3-11.1)
[2019-02-09 17:59] LABS: VBG HCO3 24 mEq/L (21-27); VBG PCO2 39 mmHg (41-51); VBG PH 7.39 pH Units (7.32-7.42); VBG PO2 149 mmHg (25-50)
[2019-02-09 18:07] LABS: Bacteria,Urine None Seen per hpf (None-Few); Squamous Epithelial Cell,Urine Many per lpf (None-Few); WBC,Urine TNTC per hpf (0-3)
[2019-02-09 18:13] LABS: Estimated Average Glucose 180 mg/dl
[2019-02-09 18:22] LABS: Albumin 2.6 g/dL (3.5-5.7); Albumin/Globulin Ratio 0.6 (1.1-2.2); Bilirubin,Total 0.9 mg/dL (0.3-1.0); Calcium 8.6 mg/dL (8.6-10.3); Globulin 4.4 g/dL (2.4-3.5); Magnesium 2.1 mg/dL (1.6-2.6); Phosphorous 3.8 mg/dL (2.7-4.5); Potassium 4.7 mEq/L (3.5-5.1); RBC,Urine Present per hpf (0-3); Yeast,Urine Many per hpf (None Seen)
[2019-02-09] MEDS ORDERED: 0.9 % Sodium Chloride 1,000 ML IVC ONE ×2 (18:39→19:42)
[2019-02-09] MEDS ORDERED: Insulin Human Regular 10 UNIT in 0.9 % Sodium Chloride 10 ML IV ONE (18:39)
[2019-02-09] MEDS ORDERED: Piperacillin/Tazobactam 3.375 GM in 0.9 % Sodium Chloride Mini Bag 100 ML IVPB ONE (18:47)
--- NOTE | 2019-02-09 19:21 | Emergency Department Note ---
Disposition Clinical Impression: Hyperglycemia, Cystitis UTI (urinary tract infection) Qualifiers: Urinary tract infection type: site unspecified Hematuria presence: with hematuria Qualified Code(s): N39.0 - Urinary tract infection, site not s pecified; R31.9 - Hematuria, unspecified Disposition: Admitted As Inpatient Condition: Good [facility]: [facility] Care Provider[facility] - Time of Disposition: 19:20 General Adult HPI - General Chief complaint: ED General Medical Stated complaint: High Blood Sugar Time Seen by Provider: 02/09/19 17:01 - History of Present Illness Pain Scale: 0 - Related Data Home Medications Medication Instructions Recorded Confirmed Allopurinol [Zyloprim 100 MG] 100 mg PO QA 12/26/18 01/27/19 Allopurinol [Zyloprim 100 MG] 200 mg PO 12/26/18 01/27/19 Atenolol [Tenormin] 25 mg PO BID 12/26/18 01/27/19 Brimonidine 0.2% [Alphagan] 1 drop BOTH EYES BID 12/26/18 01/27/19 Cholecalciferol (D-3) [Vitamin D] 2,000 unit PO DAILY 12/26/18 01/27/19 Cyanocobalamin (Vitamin B-12) 500 mcg PO DAILY 12/26/18 01/27/19 [Vitamin B-12] Latanoprost [Xalatan] 1 drop BOTH EYES HS 12/26/18 01/27/19 OxyCODONE Immed Rel [Roxicodone 5 10 mg PO Q6HR PRN 12/26/18 01/27/19 MG] Simvastatin [Zocor] 20 mg PO HS 12/26/18 01/27/19 Subcutaneous Insulin Pump [T:Slim] 1 each MC AD 12/26/18 01/27/19 Tamsulosin [Flomax] 0.4 mg PO DAILY 12/26/18 01/27/19 Warfarin [Coumadin] 5 mg PO SUMOTUWETHSA 12/26/18 01/27/19 Dextrose [Trueplus Glucose] 15 gm PO DAILY PRN 01/23/19 01/27/19 Lidocaine 1 appl TP BID PRN 01/23/19 01/27/19 Miconazole Nitrate [Anti-Fungal 1 appl TP BID 01/23/19 01/27/19 Powder] Polyethylene Glycol 3350 [MiraLAX] 17 gm PO DAILY 01/23/19 01/27/19 Warfarin [Coumadin] 7.5 mg PO FR 01/23/19 01/27/19 Melatonin [Melatin] 9 mg PO HS 01/26/19 01/27/19 Previous Rx's Medication Instructions Recorded Furosemide [Lasix] 80 mg PO BIDDIURETIC #120 tablet 01/24/19 Cefdinir [Omnicef] 300 mg PO BID #10 capsule 02/03/19 Doxycycline 100 mg PO BID #10 capsule 02/03/19 Gabapentin [Neurontin] 300 mg PO BID #60 capsule 02/03/19 hydrALAZINE [HydrALAZINE] 25 mg PO BID #60 tablet 02/03/19 metOLazone [Zaroxolyn] 5 mg PO DAILY@0730 #30 tablet 02/03/19 Allergies Allergy/AdvReac Type Severity Reaction Status Date / Time ciprofloxacin [From Cipro] AdvReac Nausea Verified 12/26/18 12:11 morphine AdvReac Nausea Verified 12/26/18 12:11 Saxagliptin [From Onglyza] AdvReac Nausea Verified 12/26/18 12:11 sulfamethoxazole AdvReac Nausea Verified 12/26/18 12:11 [From Bactrim] trimethoprim [From Bactrim] AdvReac Nausea Verified 12/26/18 12:11 Constitutional: Denies: fever, chills, weakness Eyes: Denies: eye pain, vision change ENT ED: Denies: ear pain, congestion, dysphagia Cardiovascular: Reports: edema (Bilateral lower extremities). Denies: chest pain, palpitations Respiratory: Denies: cough, dyspnea, wheezes Gastrointestinal: Denies: abdominal pain, nausea, vomiting Genitourinary: Denies: urgency, dysuria, hematuria Musculoskeletal: Reports: other (Complaining of pain in his buttock) Integumentary: Reports: other (Concerned for on his buttocks due to pain; compla ining of worsening lower extremity ulceration) Neurological: Denies: headache, weakness Endocrine: Reports: fatigue Past Medical History - Past Medical History Medical history: Reports: arthritis, atrial fibrillation, cirrhosis, CHF, COPD, diabetes, glaucoma, hypertension, renal disease Surgical history: Reports: knee replacement Psychiatric history: Reports: PTSD - Social History Smoking Status: Former smoker Smokeless Tobacco Status: No Alcohol use: Reports: none Drug use: Reports: none Physical Exam - General General appearance: alert Course Vital Signs Temperature 98.4 F 02/09/19 17:09 Pulse Rate 73 02/09/19 17:09 Respiratory Rate 24 02/09/19 17:09 Blood Pressure 129/52 02/09/19 17:09 O2 Sat by Pulse Oximetry 94 02/09/19 17:09 Temperature 98.4 F 02/09/19 17:09 Pulse Rate 60 02/09/19 17:58 Respiratory Rate 24 02/09/19 17:58 Blood Pressure 113/66 02/09/19 17:58 O2 Sat by Pulse Oximetry 97 02/09/19 17:58 Oxygen Delivery Oxygen Delivery Room Air Medical Decision Making - Lab Data Result diagrams: 02/09/19 17:30 02/09/19 17:30 Lab Results 02/09/19 02/09/19 02/09/19 Range/Units 17:30 17:30 17:30 WBC 7.2 (4.3-11.1) K/mcL RBC 3.51 L (4.19-5.50) M/mcL Hgb 10.0 L (12.9-16.9) g/dL Hct 31.4 L (37.5-50.1) % MCV 89.5 (83.0-100.0) fL MCH 28.5 (28.0-33.3) pg MCHC 31.8 (31.6-35.5) g/dL RDW 16.4 H (11.5-14.5) % Plt Count 154 (140-400) K/mcL MPV 13.3 H (9.4-12.4) fL Immature Gran % 0.8 (0-4) % Seg Neutrophils % 70.5 % Lymphocytes % 15.3 % Monocytes % 8.0 % Eosinophils % 5.1 % Basophils % 0.3 % Neutrophils # 5.1 (1.6-8.9) K/mcL Lymphocytes # 1.1 (0.6-4.6) K/mcL Monocytes # 0.6 (0.0-1.3) K/mcL Eosinophils # 0.4 (0.0-0.6) K/mcL Basophils # 0.0 (0.0-0.2) K/mcL VBG pH (7.32-7.42) pH Units VBG pCO2 (41-51) mmHg VBG pO2 (25-50) mmHg VBG HCO3 (21-27) mEq/L Sodium 129 L (136-145) mEq/L Potassium 4.7 (3.5-5.1) mEq/L Chloride 95 L (98-107) mEq/L Carbon Dioxide 26 (23-29) mEq/L BUN 91 H (8-23) mg/dL Creatinine 2.31 H (0.70-1.30) mg/dL Est GFR ( Amer) 34 L (> 60) Est GFR (Non-Af Amer) 28 L (> 60) BUN/Creatinine Ratio 39 H (6-26) Glucose 585 H* (70-105) mg/dL Est Mean Plasma Glucose mg/dl Hemoglobin A1c ( - 5.6) % Calculated Osmolality 323 H (280-300) Lactic Acid (0.5-2.2) mmol/L Calcium 8.6 (8.6-10.3) mg/dL Phosphorus 3.8 (2.7-4.5) mg/dL Magnesium 2.1 (1.6-2.6) mg/dL Total Bilirubin 0.9 (0.3-1.0) mg/dL AST 33 (13-39) Units/L ALT 28 (7-52) Units/L Alkaline Phosphatase 110 H (34-104) Units/L Serum Total Protein 7.0 (6.4-8.9) g/dL Albumin 2.6 L (3.5-5.7) g/dL Globulin 4.4 H (2.4-3.5) g/dL Albumin/Globulin Ratio 0.6 L (1.1-2.2) Beta-Hydroxybutyric Acd (0.02-0.27) mmol/L Urine Color Yellow (Yellow) Urine Clarity Turbid A (Clear) Urine pH 5.5 (5.0-8.0) pH Units Ur Specific [place] 1.008 L (1.010-1.025) Urine Protein 100 H (Neg-Trace) mg/dL Urine Glucose (UA) 500 H (Normal) mg/dL Urine Ketones Negative (Negative) mg/dL Urine Blood Moderate H (Negative) Urine Nitrite Negative (Negative) Urine Bilirubin Negative (Negative) Urine Urobilinogen Normal (Normal) mg/dL Ur Leukocyte Esterase Large H (Negative) Urine Microscopic RBC Present (0-3) per hpf Urine Microscopic WBC TNTC H (0-3) per hpf Ur Squamous Epith Cells Many H (None-Few) per lpf Urine Bacteria None Seen (None-Few) per hpf Hyaline Casts TNP Urine Yeast Many H (None Seen) per hpf Ur Culture Indicated? YES A (NO) 02/09/19 02/09/19 02/09/19 Range/Units 17:30 17:30 17:30 WBC (4.3-11.1) K/mcL RBC (4.19-5.50) M/mcL Hgb (12.9-16.9) g/dL Hct (37.5-50.1) % MCV (83.0-100.0) fL MCH (28.0-33.3) pg MCHC (31.6-35.5) g/dL RDW (11.5-14.5) % Plt Count (140-400) K/mcL MPV (9.4-12.4) fL Immature Gran % (0-4) % Seg Neutrophils % % Lymphocytes % % Monocytes % % Eosinophils % % Basophils % % Neutrophils # (1.6-8.9) K/mcL Lymphocytes # (0.6-4.6) K/mcL Monocytes # (0.0-1.3) K/mcL Eosinophils # (0.0-0.6) K/mcL Basophils # (0.0-0.2) K/mcL VBG pH (7.32-7.42) pH Units VBG pCO2 (41-51) mmHg VBG pO2 (25-50) mmHg VBG HCO3 (21-27) mEq/L Sodium (136-145) mEq/L Potassium (3.5-5.1) mEq/L Chloride (98-107) mEq/L Carbon Dioxide (23-29) mEq/L BUN (8-23) mg/dL Creatinine (0.70-1.30) mg/dL Est GFR ( Amer) (> 60) Est GFR (Non-Af Amer) (> 60) BUN/Creatinine Ratio (6-26) Glucose (70-105) mg/dL Est Mean Plasma Glucose 180 mg/dl Hemoglobin A1c 7.9 H ( - 5.6) % Calculated Osmolality (280-300) Lactic Acid 2.4 H (0.5-2.2) mmol/L Calcium (8.6-10.3) mg/dL Phosphorus (2.7-4.5) mg/dL Magnesium (1.6-2.6) mg/dL Total Bilirubin (0.3-1.0) mg/dL AST (13-39) Units/L ALT (7-52) Units/L Alkaline Phosphatase (34-104) Units/L Serum Total Protein (6.4-8.9) g/dL Albumin (3.5-5.7) g/dL Globulin (2.4-3.5) g/dL Albumin/Globulin Ratio (1.1-2.2) Beta-Hydroxybutyric Acd 0.18 (0.02-0.27) mmol/L Urine Color (Yellow) Urine Clarity (Clear) Urine pH (5.0-8.0) pH Units Ur Specific [place] (1.010-1.025) Urine Protein (Neg-Trace) mg/dL Urine Glucose (UA) (Normal) mg/dL Urine Ketones (Negative) mg/dL Urine Blood (Negative) Urine Nitrite (Negative) Urine Bilirubin (Negative) Urine Urobilinogen (Normal) mg/dL Ur Leukocyte Esterase (Negative) Urine Microscopic RBC (0-3) per hpf Urine Microscopic WBC (0-3) per hpf Ur Squamous Epith Cells (None-Few) per lpf Urine Bacteria (None-Few) per hpf Hyaline Casts Urine Yeast (None Seen) per hpf Ur Culture Indicated? (NO) 02/09/19 Range/Units 17:55 WBC (4.3-11.1) K/mcL RBC (4.19-5.50) M/mcL Hgb (12.9-16.9) g/dL Hct (37.5-50.1) % MCV (83.0-100.0) fL MCH (28.0-33.3) pg MCHC (31.6-35.5) g/dL RDW (11.5-14.5) % Plt Count (140-400) K/mcL MPV (9.4-12.4) fL Immature Gran % (0-4) % Seg Neutrophils % % Lymphocytes % % Monocytes % % Eosinophils % % Basophils % % Neutrophils # (1.6-8.9) K/mcL Lymphocytes # (0.6-4.6) K/mcL Monocytes # (0.0-1.3) K/mcL Eosinophils # (0.0-0.6) K/mcL Basophils # (0.0-0.2) K/mcL VBG pH 7.39 (7.32-7.42) pH Units VBG pCO2 39 L (41-51) mmHg VBG pO2 149 H (25-50) mmHg VBG HCO3 24 (21-27) mEq/L Sodium (136-145) mEq/L Potassium (3.5-5.1) mEq/L Chloride (98-107) mEq/L Carbon Dioxide (23-29) mEq/L BUN (8-23) mg/dL Creatinine (0.70-1.30) mg/dL Est GFR ( Amer) (> 60) Est GFR (Non-Af Amer) (> 60) BUN/Creatinine Ratio (6-26) Glucose (70-105) mg/dL Est Mean Plasma Glucose mg/dl Hemoglobin A1c ( - 5.6) % Calculated Osmolality (280-300) Lactic Acid (0.5-2.2) mmol/L Calcium (8.6-10.3) mg/dL Phosphorus (2.7-4.5) mg/dL Magnesium (1.6-2.6) mg/dL Total Bilirubin (0.3-1.0) mg/dL AST (13-39) Units/L ALT (7-52) Units/L Alkaline Phosphatase (34-104) Units/L Serum Total Protein (6.4-8.9) g/dL Albumin (3.5-5.7) g/dL Globulin (2.4-3.5) g/dL Albumin/Globulin Ratio (1.1-2.2) Beta-Hydroxybutyric Acd (0.02-0.27) mmol/L Urine Color (Yellow) Urine Clarity (Clear) Urine pH (5.0-8.0) pH Units Ur Specific [place] (1.010-1.025) Urine Protein (Neg-Trace) mg/dL Urine Glucose (UA) (Normal) mg/dL Urine Ketones (Negative) mg/dL Urine Blood (Negative) Urine Nitrite (Negative) Urine Bilirubin (Negative) Urine Urobilinogen (Normal) mg/dL Ur Leukocyte Esterase (Negative) Urine Microscopic RBC (0-3) per hpf Urine Microscopic WBC (0-3) per hpf Ur Squamous Epith Cells (None-Few) per lpf Urine Bacteria (None-Few) per hpf Hyaline Casts Urine Yeast (None Seen) per hpf Ur Culture Indicated? (NO) Attestation Statement - Attestation Attestation: I reviewed the residents documentation and agree with the residents assessment and plan of care. I have personally had face to face time with the patient. (Brief History, Brief Exam, and MDM) I personally supervised and was present for the coronado/critical portions of the following procedures completed by the resident: EKG 73 year old male presents to the eD with complaints of high blood sugar and difficulty with urination. Unruly apepars to have a UTI/and cellulitis of his lower extremities and a lactic acid of 2.4 and is otherwise not in DKA. Unruly appears to be in HHS. Admit with IVF/ABX to medicine and insuling therapy of 10units
--- NOTE | 2019-02-09 19:55 | Internal Med History&Physical ---
Date of Encounter: 02/09/19 Time of Encounter: 19:55 Internal Medicine - H&P: HPI Chief complaint: Hyperglycemia History of present illness: Mr. Duque is a 73 year old male with a past medical history of arthritis, atrial fibrillation, cirrhosis, congestive heart failure, COPD, diabetes type 2, hypertension and chronic kidney disease who presented to the ED after patient was noted to have an elevated blood glucose. On my assessment patient was lethargic and history was difficult to obtain. When asked why he came into the hospital today he stated "I have no idea ". He states he has been taking his insulin and has a insulin pump. Patient was otherwise alert oriented 3. at bedside states that earlier today patient had slid onto the floor. She states there were 4 of them at home but were unable to get him up off the floor. She subsequently called the squad. After the squad arrived they were able to get him up and into a chair. She states shortly thereafter patient became very lethargic and difficult to arouse. When he did wake up he would fall back asleep. She checked his blood sugar and stated it was 113. She then gave him something to eat and subsequently rechecked his blood sugar and found to be over 500. She then adjusted his insulin pump to give him an injection, however, shortly after she arrived to the ED she discovered that his pump was empty. Patient replaces his insulin pump at 4 PM every afternoon. Patient currently sl eeps in a lift chair and states that his sleep has been poor for the past couple months. She otherwise reports that patient has been complaining of any fever, chills, cough, shortness of breath, chest pain, nausea, vomiting, abdominal pain or diarrhea. Patient has been compliant with all his medications. Patient has Larios catheter which appears to have been placed during previous admission by urology due to genital edema and monitoring of I's and O's. Arrival patient was afebrile and hemodynamically stable. Laboratory workup notable for normal white blood cell count, chronic anemia at baseline, elevated creatinine of 2.31, bicarbonate 6, sodium of 129 and blood glucose of 568. UA did show large leukocyte esterase however sample was obtained from indwelling Larios. No anion gap. Albumin 2.6. Chest x-ray does show cardiomegaly and evidence of congestive heart failure. has a decubitus ulcer and therefore a CT scan of the pelvis was performed to rule out any deep tissue infection. Results showed no evidence of sacral decubitus ulcer or osteomyelitis; anasarca and mild ascites; multiple mesenteric and retroperitoneal lymph nodes possibly reactive, splenomegaly. Admitted for management of his hyperglycemia and chronic conditions. Past Med Surg Social Fam HX - Past Medical History Medical history: arthritis, atrial fibrillation, cirrhosis, CHF, COPD, diabetes, glaucoma, hypertension, renal disease Additional medical history: sciatica, gout, CKD III, DORIE, DM II Psychiatric history: PTSD - Past Surgical History Surgical History: knee replacement Additional surgical history: knee replacement x3 - Social History Smoking Status: Former smoker Smokeless Tobacco Status: No Alcohol use: none Drug use: none Internal Medicine - H&P: Meds Allopurinol [Zyloprim 100 MG] 100 mg PO QAM 12/26/18 [History] Allopurinol [Zyloprim 100 MG] 200 mg PO HS 12/26/18 [History] Atenolol [Tenormin] 25 mg PO BID 12/26/18 [History] Brimonidine 0.2% [Alphagan] 1 drop BOTH EYES BID 12/26/18 [History] Cholecalciferol (D-3) [Vitamin D] 2,000 unit PO DAILY 12/26/18 [History] Cyanocobalamin (Vitamin B-12) [Vitamin B-12] 500 mcg PO DAILY 12/26/18 [History] Latanoprost [Xalatan] 1 drop BOTH EYES HS 12/26/18 [History] OxyCODONE Immed Rel [Roxicodone 5 MG] 10 mg PO Q6HR PRN 12/26/18 [History] Simvastatin [Zocor] 20 mg PO HS 12/26/18 [History] Subcutaneous Insulin Pump [T:Slim] 1 each MC AD 12/26/18 [History] Tamsulosin [Flomax] 0.4 mg PO DAILY 12/26/18 [History] Warfarin [Coumadin] 5 mg PO SUMOTUWETHSA 12/26/18 [History] Dextrose [Trueplus Glucose] 15 gm PO DAILY PRN 01/23/19 [History] Lidocaine 1 appl TP BID PRN 01/23/19 [History] Miconazole Nitrate [Anti-Fungal Powder] 1 appl TP BID 01/23/19 [History] Polyethylene Glycol 3350 [MiraLAX] 17 gm PO DAILY 01/23/19 [History] Warfarin [Coumadin] 7.5 mg PO FR 01/23/19 [History] Furosemide [Lasix] 80 mg PO BIDDIURETIC #120 tablet 01/24/19 [Rx] Melatonin [Melatin] 9 mg PO HS 01/26/19 [History] Gabapentin [Neurontin] 300 mg PO BID #60 capsule 02/03/19 [Rx] hydrALAZINE [HydrALAZINE] 25 mg PO BID #60 tablet 02/03/19 [Rx] metOLazone [Zaroxolyn] 5 mg PO DAILY@0730 #30 tablet 02/03/19 [Rx] Allergy/AdvReac Type Severity Reaction Status Date / Time ciprofloxacin [From Cipro] AdvReac Nausea Verified 12/26/18 12:11 morphine AdvReac Nausea Verified 12/26/18 12:11 Saxagliptin [From Onglyza] AdvReac Nausea Verified 12/26/18 12:11 sulfamethoxazole AdvReac Nausea Verified 12/26/18 12:11 [From Bactrim] trimethoprim [From Bactrim] AdvReac Nausea Verified 12/26/18 12:11 All Systems PM: A 10-system review of systems was performed and is negative for pertinent findings except as documented above in the HPI. - Constitutional Constitutional: no chills, no fever(s), no night sweats - EENT Eyes: no change in vision, no discharge, no pain, no photophobia Ears: no ear discharge, no ear pain, no tinnitus Nose, mouth and throat: no dysphagia, no nasal discharge, no neck pain, no sore throat - Cardiovascular Cardiovascular ROS IM: no chest pain, no diaphoresis, no dyspnea, no lightheadedness, no palpitations, no syncope - Respiratory Respiratory: no cough, no dyspnea, no wheezing, no excessive phlegm production - Gastrointestinal Gastrointestinal: no abdominal pain, no diarrhea, no hematemesis, no hematochezia, no melena, no nausea, no vomiting - Musculoskeletal Musculoskeletal ROS IM: no numbness, no tingling - Integumentary Integumentary IM: no rash, no unusual bruising - Neurological Neurological ROS: no confusion, no convulsions, no focal weakness, no numbness, no tingling, no tremor(s) - Hematologic/Lymphatic Hematologic/Lymphatic: no easy bruising - Constitutional Vitals: Temp Pulse Resp BP Pulse Ox 98.4 F 66 24 112/51 96 02/09/19 17:09 02/09/19 19:37 02/09/19 19:37 02/09/19 19:37 02/09/19 19:37 Exam: General: Alert and oriented 3 Skin:Normal color, no rash, no lesions. HEENT:EOM, pupils equal, round and reactive. Cardiovascular:Normal S1 & S2, no rubs, murmurs or gallops. No JVD. Pulse regular. Lungs:Normal breath sounds, no wheezes or crackles. Abdomen: Abdomen distended nontender. Positive bowel sounds Extremities: Bilateral 2+ lower extremity edema up to the mid thighs with evidence of chronic venous stasis. Neurological: Lethargic; able to follow commands. No focal deficits appreciated. Pulses:Carotid and radial pulses normal +2. Rest of the physical exam is non contributory Internal Med - H&P Results - Labs CBC & Chem 7: 02/10/19 03:15 02/10/19 03:15 Labs: Short CBC 02/09/19 Range/Units 17:30 WBC 7.2 (4.3-11.1) K/mcL Hgb 10.0 L (12.9-16.9) g/dL Hct 31.4 L (37.5-50.1) % Plt Count 154 (140-400) K/mcL Neutrophils # 5.1 (1.6-8.9) K/mcL BMP 02/09/19 17:30 Sodium 129 L Potassium 4.7 Chloride 95 L Carbon Dioxide 26 BUN 91 H Creatinine 2.31 H Glucose 585 H* Calcium 8.6 Liver Function 02/09/19 Range/Units 17:30 Total Bilirubin 0.9 (0.3-1.0) mg/dL AST 33 (13-39) Units/L ALT 28 (7-52) Units/L Alkaline Phosphatase 110 H (34-104) Units/L Albumin 2.6 L (3.5-5.7) g/dL Urine 02/09/19 Range/Units 17:30 Urine Color Yellow (Yellow) Urine Clarity Turbid A (Clear) Urine pH 5.5 (5.0-8.0) pH Units Ur Specific [place] 1.008 L (1.010-1.025) Urine Protein 100 H (Neg-Trace) mg/dL Urine Glucose (UA) 500 H (Normal) mg/dL - ABG Interpretation ABG results: 02/09/19 17:55 VBG pH 7.39 VBG pCO2 39 L VBG pO2 149 H VBG HCO3 24 - Impressions ITS Impressions Chest X-Ray 02/09/19 17:09 IMPRESSION: 1. Findings most in keeping with congestive heart failure. 2. Calcific atherosclerosis aorta. 3. Cardiomegaly. D/ / Dionisio Ferro / Dionisio Ferro Interpreting Provider: Dionisio Ferro Pelvis CT 02/09/19 17:54 IMPRESSION: 1. Multiple enlarged mesenteric and retroperitoneal lymph nodes which may be reactive; however, metastatic disease and lymphoma cannot be excluded. There is associated splenomegaly, incompletely imaged. Dedicated CT of the abdomen and pelvis with IV and oral contrast is recommended for complete evaluation. 2. No evidence of a sacral decubitus ulcer or osteomyelitis. 3. Nonspecific thickening of the bladder wall which could be related to neurogenic bladder, outlet obstruction versus infection. The prostate gland is enlarged. 4. Anasarca and mild ascites. D/ / 02/09/2019 18:50:55 Terry Petersen MD / bcarter Interpreting Provider: Terry Petersen MD - Assessment and Plan (1) Hyperosmolar hyponatremia Current Visit: Yes Status: Acute Assessment and plan: Patient presenting with hyperosmolar hyponatremia in the setting of hyperglycemia. Corrected serum sodium 137. -Continue to monitor with glucose correction. (2) Acute encephalopathy Current Visit: Yes Status: Acute Assessment and plan: Patient lethargic and according to what has been sleeping more recently. Low suspicion for an infectious etiology given lack of fever and leukocytosis. Ammonia level found to be elevated at 107. VBG performed which showed a pH of 7.39, PCO2 39 and PO2 of 149. Patient has a history of liver cirrhosis but is not currently on lactulose. Concern for hepatic encephalopathy versus hyperglycemia. -We will continue to normalize glucose with blood glucose checks every 2 hours and sliding scale insulin coverage -We will start patient on rectal lactulose and titrate to 2-3 bowel movements daily. (3) Hyperglycemia Current Visit: Yes Status: Acute (4) Stage 3 chronic kidney disease Current Visit: No Status: Acute Assessment and plan: History of stage III chronic kidney disease. Creatinine 2.13 which appears to be at the upper limit of his baseline. (5) Acute exacerbation of CHF (congestive heart failure) Current Visit: Yes Status: Acute Assessment and plan: Patient presenting with generalized edema/anasarca and findings on chest x-ray consistent with congestive heart failure and cardiomegaly. Concern for decomp ensated heart failure with preserved EF. He was given 1 L fluid bolus in the setting of his hyperglycemia and a mildly elevated lactic acid of 2.4. Suspect patient is third spacing in the setting of his hypoalbuminemia secondary to liver cirrhosis and CHF history, as well as intravascularly volume depleted secondary to osmotic diuresis due to hyperglycemia. Patient's creatinine does appear to be at the upper limit of his baseline currently 2.31. Echocardiogram in December showed an EF of 70% -Continue with strict I's and O's; daily weights. -Jayce consult to Urology for aid in Larios placement. -We will consider starting patient on albumin and follow each unit with 80 mg Lasix. -Consult cardiology Qualifiers: Heart failure type: diastolic Qualified Code(s): I50.33 - Acute on chronic diastolic (congestive) heart failure (6) Diabetes Current Visit: No Status: Chronic Qualifiers: Qualified Code(s): E11.9 - Type 2 diabetes mellitus without complications (7) Anasarca Current Visit: No Status: Acute Assessment and plan: See CHF above (8) Atrial fibrillation Current Visit: No Status: Chronic Assessment and plan: History of atrial fibrillation rate controlled on anticoagulation. -Continue atenolol and warfarin. Qualifiers: Atrial fibrillation type: chronic Qualified Code(s): I48.2 - Chronic atrial fibrillation (9) DVT prophylaxis Current Visit: No Status: Acute - Time Spent With Patient Total time spent is greater than 50% in coordination of care (as documented) at patient's floor/unit and/or counseling patient:
[2019-02-09] MEDS ORDERED: D5% in Water 1,000 ML IVC PRN (19:56)
[2019-02-09] MEDS ORDERED: Dextrose Gel 15 GM/37.5 ML TUBE PO PRN ×2 (19:56)
[2019-02-09] MEDS ORDERED: Naloxone 0.4 MG/ML INJ IVP PRN (19:59)
[2019-02-09] MEDS: Insulin DETEMIR 100 UNIT/ML X5UNITS SQ SCH (22:05)
[2019-02-09] MEDS: Insulin LISPRO 300 UNITS/3 ML VIAL SQ SCH ×2 (22:43→23:57)
[2019-02-10] MEDS: Insulin LISPRO 300 UNITS/3 ML VIAL SQ SCH ×8 (02:21→17:32)
[2019-02-10] MEDS ORDERED: Lidocaine OINT 35.44 GM TUBE TP PRN (02:55)
[2019-02-10] MEDS ORDERED: Dextrose Gel 15 GM/37.5 ML TUBE PO PRN ×3 (02:55→09:29)
[2019-02-10] MEDS ORDERED: Albumin 25% 25gram/100mL 25 GM/100 ML IV.SOLN IVPB SCH (03:15)
[2019-02-10] MEDS ORDERED: Furosemide 40 MG/4 ML VIAL IVP SCH ×2 (04:00)
[2019-02-10] MEDS ORDERED: Lactulose 200 GM/300 ML (for enema) RC SCH (04:00)
[2019-02-10 04:02] LABS: INR 2.2; Prothrombin Time 24.7 Seconds (9.4-12.1)
[2019-02-10 04:08] LABS: Basophils % 0.3 %; Eosinophils # 0.3 K/mcL (0.0-0.6); Hematocrit 29.2 % (37.5-50.1); Hemoglobin 9.2 g/dL (12.9-16.9); Immature Granulocytes % 0.8 % (0-4); Lymphocytes # 0.9 K/mcL (0.6-4.6); Lymphocytes % 14.1 %; Mean Corpuscular HGB Conc 31.5 g/dL (31.6-35.5); Mean Corpuscular Hemoglobin 28.2 pg (28.0-33.3); Mean Corpuscular Volume 89.6 fL (83.0-100.0); Mean Platelet Volume 13.1 fL (9.4-12.4); Monocytes # 0.4 K/mcL (0.0-1.3); Monocytes % 6.9 %; Neutrophils # 4.7 K/mcL (1.6-8.9); Platelet Count 136 K/mcL (140-400); Red Blood Count 3.26 M/mcL (4.19-5.50); Red Cell Distribution Width 16.2 % (11.5-14.5); Segmented Neutrophils % 72.9 %; White Blood Count 6.4 K/mcL (4.3-11.1)
[2019-02-10 04:27] LABS: Albumin 2.3 g/dL (3.5-5.7); Albumin/Globulin Ratio 0.6 (1.1-2.2); Calcium 8.2 mg/dL (8.6-10.3); Globulin 3.9 g/dL (2.4-3.5); Potassium 4.1 mEq/L (3.5-5.1); Total Protein 6.2 g/dL (6.4-8.9)
[2019-02-10] MEDS: Lactulose 200 GM, Sodium Chloride IRRigation 700 ML RC SCH ×2 (06:46→09:26)
--- NOTE | 2019-02-10 08:51 | Cardiology Consult Note ---
Date of Encounter: 02/10/19 Time of Encounter: 08:51 Assessment and Plan (1) Anasarca Current Visit: No Status: Acute Multifactorial etiology, including HFpEF, cirrhosis, venous stasis, morbid obesity, and acute on chronic renal failure. Recommend optimizing medical management of contributing factors and continued diuresis as tolerated. (2) Heart failure with preserved ejection fraction Current Visit: Yes Status: Chronic History of CHF. Echocardiogram performed in December 2018 demonstrates LVEF 70%. CXR is significant for vascular engorgement and cephalization with bilateral pe ribronchial cuffing and perivascular haziness. Hazy alveolar density noted in bilateral parahilar regions. Patient denies any worsening shortness of breath, chest pain, palpitations, or orthopnea. Continue aspirin, statin, and beta colleen. Recommend aggressive risk factor modification. Qualifiers: Heart failure chronicity: chronic Qualified Code(s): I50.32 - Chronic diastolic (congestive) heart failure (3) Acute kidney injury superimposed on CKD Current Visit: No Status: Acute History of CKD stage 3. Creatinine noted to elevated from baseline, which appears to be ~1.8. Consider nephrology consult for recommendations. Patient does have upcoming appointment at nephrology clinic for outpatient followup. (4) Cirrhosis Current Visit: Yes Status: Acute Unknown etiology. Cirrhosis identified on abdominal CT, with mild ascites present. Patient's reports that he was diagnosed with cirrhosis several years ago; however, patient has never had a full workup for the underlying cause. She denies any history of alcohol abuse or hepatitis. Consider full hepatic workup and consult to gastroenterology for evaluation of this problem. Qualifiers: Hepatic cirrhosis type: unspecified hepatic cirrhosis Ascites presence: with ascites Qualified Code(s): K74.60 - Unspecified cirrhosis of liver; R18.8 - Other ascites (5) Morbid obesity Current Visit: Yes Status: Chronic Dietary and lifestyle changes recommended. Discussion w patient/family: The assessment and plan as outlined above was discussed with the patient and/or family members who expressed understanding and agreement. All questions were answered. Thank you for involving us in the care of your patient. Please call with any questions. History of Present Illness Consult date: 02/09/19 Requesting physician: Jorge Zaldivar Consult reason: Generalized edema Chief complaint: Hyperglycemia History of present illness: Mr. Duque is a 73 year old male with a history of arthritis, atrial fibrillation, cirrhosis, CHF, COPD, DM 2, HTN, and CKD who presented to the ED via EMS for evaluation of altered mental status. Workup was significant for elevated blood glucose, as well as urinalysis suspicious for acute UTI. CXR showed findings consistent with congestive heart failure, CHF, and calcific atherosclerosis of the aorta. CT of the abdomen was significant for multiple enlarged mesenteric and retroperitoneal lymph nodes, splenomegaly, nonspecific bladder wall thickening, prostate enlargement, anasarca, and mild ascites. Patient was noted to have extensive bilateral lower extremity edema. Cardiology consult requested for recommendations. On evaluation this morning, patient appears lethargic and resistant to answering any questions. He says "I don't know why I'm here", and states to "ask her", referring to his . Patient's states that he has had several falls at home that require assistance of EMS. Patient reportedly had a similar fall yesterday, however, he was also apparently confused with elevated blood glucose. Patient denies any chest pain, worsenening shortness of breath, orthopnea, or worsening lower extremity edema. Patient had echocardiogram performed on 12/26/2018, which demonstrated the following: LVEF 70%. Normal LV chamber size, wall thickness and function. Grossly normal right ventricular size and function. No significant valvular dysfunction. No evidence of pulmonary hypertension. Past Med Surg Social Fam HX - Past Medical History Medical history: arthritis, atrial fibrillation, cirrhosis, CHF, COPD, diabetes, glaucoma, hypertension, renal disease Additional medical history: sciatica, gout, CKD III, DORIE, DM II Psychiatric history: PTSD - Past Surgical History Surgical History: knee replacement Additional surgical history: knee replacement x3 - Social History Smoking Status: Former smoker Smokeless Tobacco Status: No Alcohol use: none Drug use: none Medications and Allergies Allopurinol [Zyloprim 100 MG] 100 mg PO QAM 12/26/18 [History] Allopurinol [Zyloprim 100 MG] 200 mg PO HS 12/26/18 [History] Atenolol [Tenormin] 25 mg PO BID 12/26/18 [History] Brimonidine 0.2% [Alphagan] 1 drop BOTH EYES BID 12/26/18 [History] Cholecalciferol (D-3) [Vitamin D] 2,000 unit PO DAILY 12/26/18 [History] Cyanocobalamin (Vitamin B-12) [Vitamin B-12] 500 mcg PO DAILY 12/26/18 [History] Latanoprost [Xalatan] 1 drop BOTH EYES HS 12/26/18 [History] OxyCODONE Immed Rel [Roxicodone 5 MG] 10 mg PO Q6HR PRN 12/26/18 [History] Simvastatin [Zocor] 20 mg PO HS 12/26/18 [History] Subcutaneous Insulin Pump [T:Slim] 1 each MC AD 12/26/18 [History] Tamsulosin [Flomax] 0.4 mg PO DAILY 12/26/18 [History] Warfarin [Coumadin] 5 mg PO SUMOTUWETHSA 12/26/18 [History] Dextrose [Trueplus Glucose] 15 gm PO DAILY PRN 01/23/19 [History] Lidocaine 1 appl TP BID PRN 01/23/19 [History] Miconazole Nitrate [Anti-Fungal Powder] 1 appl TP BID 01/23/19 [History] Polyethylene Glycol 3350 [MiraLAX] 17 gm PO DAILY 01/23/19 [History] Warfarin [Coumadin] 7.5 mg PO FR 01/23/19 [History] Furosemide [Lasix] 80 mg PO BIDDIURETIC #120 tablet 01/24/19 [Rx] Melatonin [Melatin] 9 mg PO HS 01/26/19 [History] Gabapentin [Neurontin] 300 mg PO BID #60 capsule 02/03/19 [Rx] hydrALAZINE [HydrALAZINE] 25 mg PO BID #60 tablet 02/03/19 [Rx] metOLazone [Zaroxolyn] 5 mg PO DAILY@0730 #30 tablet 02/03/19 [Rx] Allergy/AdvReac Type Severity Reaction Status Date / Time ciprofloxacin [From Cipro] AdvReac Nausea Verified 12/26/18 12:11 morphine AdvReac Nausea Verified 12/26/18 12:11 Saxagliptin [From Onglyza] AdvReac Nausea Verified 12/26/18 12:11 sulfamethoxazole AdvReac Nausea Verified 12/26/18 12:11 [From Bactrim] trimethoprim [From Bactrim] AdvReac Nausea Verified 12/26/18 12:11 All Systems Review: The remainder of the systems were reviewed and are negative - Constitutional Constitutional: frequent falls, lethargy - Cardiovascular Cardiovascular: dyspnea at rest, dyspnea on exertion, leg edema, no chest pain at rest, no chest pain with exertion, no diaphoresis, no radiating jaw, neck or arm pain, no orthopnea, no palpitations - Respiratory Respiratory: dyspnea Physical Examination Vital Signs, Last 4 Hours Temp Pulse Resp BP Pulse Ox 02/10/19 07:33 99.1 F 69 18 130/78 95 General: Other (patient is lethargic and poorly cooperative) HEENT: Atraumatic, Normocephaly, Mucus Membranes Moist Cardiac: Reg Rate and Rhythm, Normal S1 and S2, No Murmur Lungs: Other (diffusely decreased breath sounds bilaterally, no wheezes) Neuro: No focal deficits noted Abdomen: Soft, Non-Tender, Other (obese abdomen, anasarca) Skin: Other (skin changes consistent with venous stasis in bilateral lower extremities) Extremities: Other (3+ bilateral lower extremity pitting edema) Results 02/10/19 03:15 02/10/19 03:15 Lab Results 02/09/19 02/09/19 02/10/19 17:30 17:30 03:15 WBC 7.2 6.4 Hgb 10.0 L 9.2 L Hct 31.4 L 29.2 L Plt Count 154 136 L INR Sodium 129 L Potassium 4.7 Chloride 95 L Carbon Dioxide 26 BUN 91 H Creatinine 2.31 H Glucose 585 H* Calcium 8.6 Magnesium 2.1 Total Bilirubin 0.9 AST 33 ALT 28 Alkaline Phosphatase 110 H 02/10/19 02/10/19 03:15 03:33 WBC Hgb Hct Plt Count INR 2.2 D Sodium 133 L Potassium 4.1 Chloride 101 Carbon Dioxide 24 BUN 93 H Creatinine 2.16 H Glucose 333 H Calcium 8.2 L Magnesium Total Bilirubin 1.0 AST 25 ALT 24 Alkaline Phosphatase 93 Consult Discharge Plan - Plan [facility]: [facility] [Primary Care Provider] -
[2019-02-10] MEDS: Cyanocobalamin (B-12) 1,000 MCG TABLET PO SCH (09:24)
[2019-02-10] MEDS: metOLazone 5 MG TABLET PO SCH (09:24)
[2019-02-10] MEDS: Cholecalciferol (D-3) 1,000 UNIT TABLET PO SCH (09:24)
[2019-02-10] MEDS: Nystatin POWDER 30 GM BOTTLE TP SCH ×2 (09:25→22:21)
[2019-02-10] MEDS: hydrALAZINE 25 MG TABLET PO SCH ×2 (09:25→22:22)
[2019-02-10] MEDS ORDERED: D5% in Water 1,000 ML IVC PRN (09:29)
[2019-02-10] MEDS ORDERED: *HR* Dextrose 50 % in Water (Syg) 50 ML SYRINGE IVP PRN (09:29)
--- NOTE | 2019-02-10 09:41 | Internal Med Progress Note ---
Hospitalist Progress Note - Encounter Date of Encounter: 02/10/19 Time of Encounter: 09:39 - Subjective Interval History: Patient is doing better, he is more alert, oriented to 3. He complains of pain from legs and the back. He is able to drink water, swallow medications. His is at the bedside, insulin pump was stopped at home. [facility], BG has been coming down we will start his diet, change insulin to scheduled meal insulin and SSI, he has signikficant leg swelling from CKD 4 and CHF. - Exam Vitals: Temp Pulse Resp BP Pulse Ox 99.1 F 69 18 130/78 95 02/10/19 07:33 02/10/19 07:33 02/10/19 07:33 02/10/19 07:33 02/10/19 07:33 Exam: General: Alert and oriented 3 Skin:Normal color, no rash, no lesions. HEENT:EOM, pupils equal, round and reactive. Cardiovascular:Normal S1 & S2, no rubs, murmurs or gallops. No JVD. Pulse re gular. Lungs:Normal breath sounds, no wheezes or crackles. Abdomen: Abdomen distended nontender. Positive bowel sounds Extremities: Bilateral 4+ lower extremity edema up to the mid thighs with eviden ce of chronic venous stasis. Neurological: alert and oriented to 3, able to follow commands. No focal deficits appreciated. Pulses:Carotid and radial pulses normal +2. Rest of the physical exam is non contributory DVT Prophylaxis: on coumadin INR is therapeutic - Summary of Assessment and Plan Summary of Assessment and Plan: Mr. Duque is a 73 year old male with a past medical history of arthritis, atrial fibrillation, cirrhosis, congestive heart failure, COPD, diabetes type 2, hypertension and chronic kidney disease who presented to the ED after patient was noted to have an elevated blood glucose. Arrival patient was afebrile and hemodynamically stable. Laboratory workup notable for normal white blood cell count, chronic anemia at baseline, elevated creatinine of 2.31, bicarbonate 6, sodium of 129 and blood glucose of 568. UA did show large leukocyte esterase however sample was obtained from indwelling Velasco. No anion gap. Albumin 2.6. Chest x-ray does show cardiomegaly and evidence of congestive heart failure. he has a decubitus ulcer and therefore a CT scan of the pelvis was performed to ru le out any deep tissue infection. Results showed no evidence of sacral decubitus ulcer or osteomyelitis; anasarca and mild ascites; multiple mesenteric and retroperitoneal lymph nodes possibly reactive, splenomegaly. Admitted for management of his hyperglycemia and chronic conditions. (1) DM type 2 with Hyperosmolar hyponatremiadue to noncompliance, insulin pump was stopped at home, ill continue detemir at HS, add Meal insulin and SSI, then titrate for BG control Current Visit: Yes Status: Acute A1C 7.9% (2) Acute hepatic and ,metabolic encephalopathy, hold opiate, ammonia was 107 on admission, will start lactulose 20 ml TID to keep stool 3-4 BM Current Visit: Yes Status: Acute (3) complicated UTI with yeast infection, scrotal yeast infection, need velasco, but unable to place, urology is consulted, will add fluconazole IV Current Visit: Yes Status: Acute (4) Stage 3 chronic kidney disease with severe anarsarca, IV lasix, and metolazone Current Visit: No Status: Acute Assessment and plan: History of stage III chronic kidney disease. Creatinine 2.13 which appears to be at the upper limit of his baseline. (5) Acute on chronic diastolic exacerbation of CHF (congestive heart failure), aggresive diuresis Current Visit: Yes Status: Acute Assessment and plan: . Echocardiogram in December showed an EF of 70% -Continue with strict I's and O's; daily weights. -Jayce consult to Urology for aid in Velasco placement. -We will consider starting patient on albumin and follow each unit with 80 mg Lasix. -Consult cardiology (6) B/L cellulitis conitnue home meds doxy and cefdinir Current Visit: No Status: Chronic Qualifiers: (7) Morbid obesity with BMI 48 Current Visit: No Status: Acute Assessment and plan: See CHF above (8) Atrial fibrillation, HR is controlled on coumadin Current Visit: No Status: Chronic Assessment and plan: History of atrial fibrillation rate controlled on anticoagulation. -Continue atenolol and warfarin. Qualifiers: Atrial fibrillation type: chronic Qualified Code(s): I48.2 - Chronic atrial fibrillation (9) DVT prophylaxis on coumadin Current Visit: No Status: Acute - Time Spent with Patient Total time spent is greater than 50% in coordination of care (as documented) at patient's floor/unit and/or counseling patient: 25 - 35 minutes Plan of Care Discussed with: family Internal Medicine: Result - Labs CBC & Chem 7: 02/10/19 03:15 02/10/19 03:15 Labs: Short CBC 02/09/19 02/10/19 Range/Units 17:30 03:15 WBC 7.2 6.4 (4.3-11.1) K/mcL Hgb 10.0 L 9.2 L (12.9-16.9) g/dL Hct 31.4 L 29.2 L (37.5-50.1) % Plt Count 154 136 L (140-400) K/mcL Neutrophils # 5.1 4.7 (1.6-8.9) K/mcL BMP 02/09/19 02/10/19 17:30 03:15 Sodium 129 L 133 L Potassium 4.7 4.1 Chloride 95 L 101 Carbon Dioxide 26 24 BUN 91 H 93 H Creatinine 2.31 H 2.16 H Glucose 585 H* 333 H Calcium 8.6 8.2 L Liver Function 02/09/19 02/10/19 Range/Units 17:30 03:15 Total Bilirubin 0.9 1.0 (0.3-1.0) mg/dL AST 33 25 (13-39) Units/L ALT 28 24 (7-52) Units/L Alkaline Phosphatase 110 H 93 (34-104) Units/L Albumin 2.6 L 2.3 L (3.5-5.7) g/dL Urine 02/09/19 Range/Units 17:30 Urine Color Yellow (Yellow) Urine Clarity Turbid A (Clear) Urine pH 5.5 (5.0-8.0) pH Units Ur Specific [place] 1.008 L (1.010-1.025) Urine Protein 100 H (Neg-Trace) mg/dL Urine Glucose (UA) 500 H (Normal) mg/dL - ABG Interpretation ABG results: PT/INR, D-dimer PT 24.7 Seconds (9.4-12.1) H D 02/10/19 03:33 - Impressions Impressions Chest X-Ray 02/09/19 17:09 IMPRESSION: 1. Findings most in keeping with congestive heart failure. 2. Calcific atherosclerosis aorta. 3. Cardiomegaly. D/ / Dionisio Ferro / Dionisio Ferro Interpreting Provider: Dionisio Ferro Pelvis CT 02/09/19 17:54 IMPRESSION: 1. Multiple enlarged mesenteric and retroperitoneal lymph nodes which may be reactive; however, metastatic disease and lymphoma cannot be excluded. There is associated splenomegaly, incompletely imaged. Dedicated CT of the abdomen and pelvis with IV and oral contrast is recommended for complete evaluation. 2. No evidence of a sacral decubitus ulcer or osteomyelitis. 3. Nonspecific thickening of the bladder wall which could be related to neurogenic bladder, outlet obstruction versus infection. The prostate gland is enlarged. 4. Anasarca and mild ascites. D/ / 02/09/2019 18:50:55 Terry Petersen MD / bcarter Interpreting Provider: Terry Petersen MD Consult Discharge Plan - Plan [facility]errals: [facility] [Primary Care Provider] -
[2019-02-10] MEDS ORDERED: Fluconazole 200 MG/100 ML 200 MG/100 ML BAG IVPB ONE (09:45)
--- NOTE | 2019-02-10 09:45 | Electrocardiograph Report ---
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
[2019-02-10] MEDS: Lactulose Oral Soln 20 GM/30 ML UDC PO SCH ×3 (11:16→22:22)
[2019-02-10] MEDS: Cefdinir 300 MG CAPSULE PO SCH (11:17)
[2019-02-10] MEDS: Doxycycline 100 MG CAPSULE PO SCH ×2 (11:20→22:20)
--- NOTE | 2019-02-10 12:12 | Urology - Consult Note ---
<Anayeli Samaniego N - Last Filed: 02/10/19 12:17> Date of Encounter: 02/10/19 Time of Encounter: 11:40 - Assessment and Plan (1) Difficulty with insertion of urinary catheter Current Visit: Yes Status: Acute Assessment and plan: Patient is a 73-year-old male who presents with multiple comorbidities including diffuse anasarca and morbid obesity who presents with a difficult catheter placement. Dr. Burger and myself assisted patient at bedside, and we successfully placed a 16-Surinamese straight Larios catheter. Patient tolerated the procedure well. (2) UTI (urinary tract infection) Current Visit: Yes Status: Acute Assessment and plan: Patient is a 73-year-old male who presents with a urinary tract infection. Urine returned from initial catheter placement appeared purulent and malodorous. A sterile specimen was collected and sent for culture. Patient is receiving IV antibiotics, and we will await final culture and sensitivity report. Qualifiers: Urinary tract infection type: site unspecified Hematuria presence: without hematuria Qualified Code(s): N39.0 - Urinary tract infection, site not specified Urology CN:HPI Consult date: 02/10/19 Reason for consult Urology: Difficult Larios Requesting physician: Jorge Zaldivar History of present illness: Patient is a 73-year-old male who presents with diffuse anasarca and a difficult catheter insertion. Patient was previously admitted to the hospital with diff use genital edema, and Dr. Rios used a zip wire to place a catheter on 01/22/2019. Patient was recently presented to the emergency department and was subsequently admitted for hyperglycemia and general management on his multitude of comorbidities. Unfortunately, during my evaluation, patient is very lethargic, disoriented and reluctant to answer pointed questions regarding his medical history. Urology has been consulted for complex catheter placement, as patient is undergoing diuresis and will need strict I's and O's monitored. Past Med Surg Social Fam HX - Past Medical History Medical history: arthritis, atrial fibrillation, cirrhosis, CHF, COPD, diabetes, glaucoma, hypertension, renal disease Additional medical history: sciatica, gout, CKD III, DORIE, DM II Psychiatric history: PTSD - Past Surgical History Surgical History: knee replacement Additional surgical history: knee replacement x3 - Social History Smoking Status: Former smoker Smokeless Tobacco Status: No Alcohol use: none Drug use: none - Additional Family History Additional family history: No known documented family history of malignancy Medications and Allergies Allopurinol [Zyloprim 100 MG] 100 mg PO QAM 12/26/18 [History] Allopurinol [Zyloprim 100 MG] 200 mg PO HS 12/26/18 [History] Atenolol [Tenormin] 25 mg PO BID 12/26/18 [History] Brimonidine 0.2% [Alphagan] 1 drop BOTH EYES BID 12/26/18 [History] Cholecalciferol (D-3) [Vitamin D] 2,000 unit PO DAILY 12/26/18 [History] Cyanocobalamin (Vitamin B-12) [Vitamin B-12] 500 mcg PO DAILY 12/26/18 [History] Latanoprost [Xalatan] 1 drop BOTH EYES HS 12/26/18 [History] OxyCODONE Immed Rel [Roxicodone 5 MG] 10 mg PO Q6HR PRN 12/26/18 [History] Simvastatin [Zocor] 20 mg PO HS 12/26/18 [History] Subcutaneous Insulin Pump [T:Slim] 1 each MC AD 12/26/18 [History] Tamsulosin [Flomax] 0.4 mg PO DAILY 12/26/18 [History] Warfarin [Coumadin] 5 mg PO SUMOTUWETHSA 12/26/18 [History] Dextrose [Trueplus Glucose] 15 gm PO DAILY PRN 01/23/19 [History] Lidocaine 1 appl TP BID PRN 01/23/19 [History] Miconazole Nitrate [Anti-Fungal Powder] 1 appl TP BID 01/23/19 [History] Polyethylene Glycol 3350 [MiraLAX] 17 gm PO DAILY 01/23/19 [History] Warfarin [Coumadin] 7.5 mg PO FR 01/23/19 [History] Furosemide [Lasix] 80 mg PO BIDDIURETIC #120 tablet 01/24/19 [Rx] Melatonin [Melatin] 9 mg PO HS 01/26/19 [History] Gabapentin [Neurontin] 300 mg PO BID #60 capsule 02/03/19 [Rx] hydrALAZINE [HydrALAZINE] 25 mg PO BID #60 tablet 02/03/19 [Rx] metOLazone [Zaroxolyn] 5 mg PO DAILY@0730 #30 tablet 02/03/19 [Rx] Allergy/AdvReac Type Severity Reaction Status Date / Time ciprofloxacin [From Cipro] AdvReac Nausea Verified 12/26/18 12:11 morphine AdvReac Nausea Verified 12/26/18 12:11 Saxagliptin [From Onglyza] AdvReac Nausea Verified 12/26/18 12:11 sulfamethoxazole AdvReac Nausea Verified 12/26/18 12:11 [From Bactrim] trimethoprim [From Bactrim] AdvReac Nausea Verified 12/26/18 12:11 Review of Systems ROS unobtainable: due to mental status Exam Initial Vital Signs Temp Pulse Resp BP Pulse Ox 98.4 F 73 24 129/52 94 02/09/19 17:09 02/09/19 17:09 02/09/19 17:09 02/09/19 17:09 02/09/19 17:09 - General physical appearance Present: no distress, no pain, chronically ill, obese - Eyes Present: PERRL, normal ocular movement - ENT Present: no congestion, decreased hearing - Neck Present: no masses, trachea midline, no lymphadenopathy - Respiratory Present: normal respiratory effort - Cardiovascular Cardiovascular exam IM: RRR - Abdomen Abdomen: Present: soft, non tender, distended - Genitourinary Penis: Present: edema, retractable foreskin Urethral meatis: Present: patent Testicles: Present: other (Scrotal edema) - Integumentary Present: no rash, no abnormal pigmentation - Neurologic Present: disoriented - Musculoskeletal Present: other (Marked +4 pedal edema) Urology Results - Labs 02/10/19 03:15 02/10/19 03:15 Abnormal lab results RBC 3.26 M/mcL (4.19-5.50) L 02/10/19 03:15 Hgb 9.2 g/dL (12.9-16.9) L 02/10/19 03:15 Hct 29.2 % (37.5-50.1) L 02/10/19 03:15 MCHC 31.5 g/dL (31.6-35.5) L 02/10/19 03:15 RDW 16.2 % (11.5-14.5) H 02/10/19 03:15 Plt Count 136 K/mcL (140-400) L 02/10/19 03:15 MPV 13.1 fL (9.4-12.4) H 02/10/19 03:15 PT 24.7 Seconds (9.4-12.1) H D 02/10/19 03:33 VBG pCO2 39 mmHg (41-51) L 02/09/19 17:55 VBG pO2 149 mmHg (25-50) H 02/09/19 17:55 Sodium 133 mEq/L (136-145) L 02/10/19 03:15 Chloride 95 mEq/L (98-107) L 02/09/19 17:30 BUN 93 mg/dL (8-23) H 02/10/19 03:15 2.16 mg/dL (0.70-1.30) H 02/10/19 03:15 Est GFR ( Amer) 37 (> 60) L 02/10/19 03:15 Est GFR (Non-Af Amer) 30 (> 60) L 02/10/19 03:15 43 (6-26) H 02/10/19 03:15 Glucose 333 mg/dL (70-105) H 02/10/19 03:15 POC Glucose 241 mg/dL (70-99) H 02/10/19 06:36 7.9 % (-5.6) H 02/09/19 17:30 318 (280-300) H 02/10/19 03:15 Lactic Acid 2.4 mmol/L (0.5-2.2) H 02/09/19 17:30 Calcium 8.2 mg/dL (8.6-10.3) L 02/10/19 03:15 110 Units/L (34-104) H 02/09/19 17:30 107 mcmol/L (16-53) H 02/09/19 22:15 6.2 g/dL (6.4-8.9) L 02/10/19 03:15 2.3 g/dL (3.5-5.7) L 02/10/19 03:15 3.9 g/dL (2.4-3.5) H 02/10/19 03:15 0.6 (1.1-2.2) L 02/10/19 03:15 Turbid (Clear) A 02/09/19 17:30 Ur Specific [place] 1.008 (1.010-1.025) L 02/09/19 17:30 100 mg/dL (Neg-Trace) H 02/09/19 17:30 500 mg/dL (Normal) H 02/09/19 17:30 Moderate (Negative) H 02/09/19 17:30 Ur Leukocyte Esterase Large (Negative) H 02/09/19 17:30 TNTC per hpf (0-3) H 02/09/19 17:30 Ur Squamous Epith Cells Many per lpf (None-Few) H 02/09/19 17:30 Many per hpf (None Seen) H 02/09/19 17:30 Ur Culture Indicated? YES (NO) A 02/09/19 17:30 Diabetes panel 02/09/19 02/09/19 02/10/19 Range/Units 17:30 17:30 03:15 Sodium 129 L 133 L (136-145) mEq/L Potassium 4.7 4.1 (3.5-5.1) mEq/L Chloride 95 L 101 (98-107) mEq/L Carbon Dioxide 26 24 (23-29) mEq/L BUN 91 H 93 H (8-23) mg/dL Creatinine 2.31 H 2.16 H (0.70-1.30) mg/dL Glucose 585 H* 333 H (70-105) mg/dL Hemoglobin A1c 7.9 H ( - 5.6) % Calcium 8.6 8.2 L (8.6-10.3) mg/dL AST 33 25 (13-39) Units/L ALT 28 24 (7-52) Units/L Alkaline Phosphatase 110 H 93 (34-104) Units/L Albumin 2.6 L 2.3 L (3.5-5.7) g/dL Calcium panel 02/09/19 02/10/19 Range/Units 17:30 03:15 Calcium 8.6 8.2 L (8.6-10.3) mg/dL Phosphorus 3.8 (2.7-4.5) mg/dL Albumin 2.6 L 2.3 L (3.5-5.7) g/dL Pituitary panel 02/09/19 02/10/19 Range/Units 17:30 03:15 Sodium 129 L 133 L (136-145) mEq/L Potassium 4.7 4.1 (3.5-5.1) mEq/L Chloride 95 L 101 (98-107) mEq/L Carbon Dioxide 26 24 (23-29) mEq/L BUN 91 H 93 H (8-23) mg/dL Creatinine 2.31 H 2.16 H (0.70-1.30) mg/dL Glucose 585 H* 333 H (70-105) mg/dL Calcium 8.6 8.2 L (8.6-10.3) mg/dL Adrenal panel 02/09/19 02/10/19 Range/Units 17:30 03:15 Sodium 129 L 133 L (136-145) mEq/L Potassium 4.7 4.1 (3.5-5.1) mEq/L Chloride 95 L 101 (98-107) mEq/L Carbon Dioxide 26 24 (23-29) mEq/L BUN 91 H 93 H (8-23) mg/dL Creatinine 2.31 H 2.16 H (0.70-1.30) mg/dL Glucose 585 H* 333 H (70-105) mg/dL Calcium 8.6 8.2 L (8.6-10.3) mg/dL Total Bilirubin 0.9 1.0 (0.3-1.0) mg/dL AST 33 25 (13-39) Units/L ALT 28 24 (7-52) Units/L Alkaline Phosphatase 110 H 93 (34-104) Units/L Albumin 2.6 L 2.3 L (3.5-5.7) g/dL All other labs normal. - Imaging CT scan - pelvis: report reviewed, image reviewed Procedures:Urology - Catheter Insertion (Urinary) Estimated amount of urin (mLs): 500 Type of catheter inserted: 2 way Catheter Surinamese Size: 16 Topical anesthesia used: No Results: successfully catheterized-immediate flow Urine Appearance: Cloudy, Purulent Patient tolerated procedure: well, no complications Complications: none Additional comments: Patient lying in supine position. Patient was prepped and draped in normal sterile fashion. A 16-Surinamese straight catheter was passed through the urethral meatus and into the bladder. Urethral meatus was unable to be directly visualized. Immediate return of purulent urine was discovered, and a sterile specimen was collected to be sent for culture. 10 mL of sterile water was instilled into the catheter balloon. Patient tolerated the procedure well without complication. Consult Discharge Plan - Plan [facility]errals: [facility]Primary Care Provider[facility] - <Rosales Burger - Last Filed: 02/10/19 15:34> Date of Encounter: 02/10/19 - Assessment and Plan (1) Difficulty with insertion of urinary catheter Current Visit: Yes Status: Acute Assessment and plan: Patient seen and examined independently. History, review of systems and physical exam findings of PA verified. All pertinent imaging reviewed. I am in agreement with the assessment and plan as outlined by our Urologic Surgery Department Physician Smocker, Danette. Discussed options for management with patient and . Larios catheter placed at bedside. Urine culture from sterile catheter sent due to gross infected appearance. (2) UTI (urinary tract infection) Current Visit: Yes Status: Acute Qualifiers: Urinary tract infection type: site unspecified Hematuria presence: without hematuria Qualified Code(s): N39.0 - Urinary tract infection, site not specified Exam Initial Vital Signs Temp Pulse Resp BP Pulse Ox 98.4 F 73 24 129/52 94 02/09/19 17:09 02/09/19 17:09 02/09/19 17:09 02/09/19 17:09 02/09/19 17:09 Urology Results - Labs 02/10/19 03:15 02/10/19 03:15 Abnormal lab results RBC 3.26 M/mcL (4.19-5.50) L 02/10/19 03:15 Hgb 9.2 g/dL (12.9-16.9) L 02/10/19 03:15 Hct 29.2 % (37.5-50.1) L 02/10/19 03:15 MCHC 31.5 g/dL (31.6-35.5) L 02/10/19 03:15 RDW 16.2 % (11.5-14.5) H 02/10/19 03:15 Plt Count 136 K/mcL (140-400) L 02/10/19 03:15 MPV 13.1 fL (9.4-12.4) H 02/10/19 03:15 PT 24.7 Seconds (9.4-12.1) H D 02/10/19 03:33 VBG pCO2 39 mmHg (41-51) L 02/09/19 17:55 VBG pO2 149 mmHg (25-50) H 02/09/19 17:55 Sodium 133 mEq/L (136-145) L 02/10/19 03:15 Chloride 95 mEq/L (98-107) L 02/09/19 17:30 BUN 93 mg/dL (8-23) H 02/10/19 03:15 2.16 mg/dL (0.70-1.30) H 02/10/19 03:15 Est GFR ( Amer) 37 (> 60) L 02/10/19 03:15 Est GFR (Non-Af Amer) 30 (> 60) L 02/10/19 03:15 43 (6-26) H 02/10/19 03:15 Glucose 333 mg/dL (70-105) H 02/10/19 03:15 POC Glucose 241 mg/dL (70-99) H 02/10/19 06:36 7.9 % (-5.6) H 02/09/19 17:30 318 (280-300) H 02/10/19 03:15 Lactic Acid 2.4 mmol/L (0.5-2.2) H 02/09/19 17:30 Calcium 8.2 mg/dL (8.6-10.3) L 02/10/19 03:15 110 Units/L (34-104) H 02/09/19 17:30 107 mcmol/L (16-53) H 02/09/19 22:15 6.2 g/dL (6.4-8.9) L 02/10/19 03:15 2.3 g/dL (3.5-5.7) L 02/10/19 03:15 3.9 g/dL (2.4-3.5) H 02/10/19 03:15 0.6 (1.1-2.2) L 02/10/19 03:15 Turbid (Clear) A 02/09/19 17:30 Ur Specific [place] 1.008 (1.010-1.025) L 02/09/19 17:30 100 mg/dL (Neg-Trace) H 02/09/19 17:30 500 mg/dL (Normal) H 02/09/19 17:30 Moderate (Negative) H 02/09/19 17:30 Ur Leukocyte Esterase Large (Negative) H 02/09/19 17:30 TNTC per hpf (0-3) H 02/09/19 17:30 Ur Squamous Epith Cells Many per lpf (None-Few) H 02/09/19 17:30 Many per hpf (None Seen) H 02/09/19 17:30 Ur Culture Indicated? YES (NO) A 02/09/19 17:30 Diabetes panel 02/09/19 02/09/19 02/10/19 Range/Units 17:30 17:30 03:15 Sodium 129 L 133 L (136-145) mEq/L Potassium 4.7 4.1 (3.5-5.1) mEq/L Chloride 95 L 101 (98-107) mEq/L Carbon Dioxide 26 24 (23-29) mEq/L BUN 91 H 93 H (8-23) mg/dL Creatinine 2.31 H 2.16 H (0.70-1.30) mg/dL Glucose 585 H* 333 H (70-105) mg/dL Hemoglobin A1c 7.9 H ( - 5.6) % Calcium 8.6 8.2 L (8.6-10.3) mg/dL AST 33 25 (13-39) Units/L ALT 28 24 (7-52) Units/L Alkaline Phosphatase 110 H 93 (34-104) Units/L Albumin 2.6 L 2.3 L (3.5-5.7) g/dL Calcium panel 02/09/19 02/10/19 Range/Units 17:30 03:15 Calcium 8.6 8.2 L (8.6-10.3) mg/dL Phosphorus 3.8 (2.7-4.5) mg/dL Albumin 2.6 L 2.3 L (3.5-5.7) g/dL Pituitary panel 02/09/19 02/10/19 Range/Units 17:30 03:15 Sodium 129 L 133 L (136-145) mEq/L Potassium 4.7 4.1 (3.5-5.1) mEq/L Chloride 95 L 101 (98-107) mEq/L Carbon Dioxide 26 24 (23-29) mEq/L BUN 91 H 93 H (8-23) mg/dL Creatinine 2.31 H 2.16 H (0.70-1.30) mg/dL Glucose 585 H* 333 H (70-105) mg/dL Calcium 8.6 8.2 L (8.6-10.3) mg/dL Adrenal panel 02/09/19 02/10/19 Range/Units 17:30 03:15 Sodium 129 L 133 L (136-145) mEq/L Potassium 4.7 4.1 (3.5-5.1) mEq/L Chloride 95 L 101 (98-107) mEq/L Carbon Dioxide 26 24 (23-29) mEq/L BUN 91 H 93 H (8-23) mg/dL Creatinine 2.31 H 2.16 H (0.70-1.30) mg/dL Glucose 585 H* 333 H (70-105) mg/dL Calcium 8.6 8.2 L (8.6-10.3) mg/dL Total Bilirubin 0.9 1.0 (0.3-1.0) mg/dL AST 33 25 (13-39) Units/L ALT 28 24 (7-52) Units/L Alkaline Phosphatase 110 H 93 (34-104) Units/L Albumin 2.6 L 2.3 L (3.5-5.7) g/dL All other labs normal.
[2019-02-10] MEDS ORDERED: Albumin 25% 25gram/100mL 25 GM/100 ML IV.SOLN IVPB ONE ×2 (15:00→18:00)
--- NOTE | 2019-02-10 16:59 | Discharge Summary ---
Orders not resulted at time of discharge: Pending orders 02/09/19 17:20 Culture,Blood [BC] Stat 02/09/19 17:30 Culture,Urine [RM] Stat 02/10/19 12:20 Culture,Urine [RM] Routine 02/11/19 04:00 Ammonia AM 0400 Chem 7 [Basic Metabolic Panel] AM 0400 Complete Blood Count [HEME] AM 0400 INR/PT [Prothrombin Time INR] [COAG] AM 0400 LFTs [Hepatic Panel] AM 0400 Magnesium AM 0400 02/12/19 04:00 INR/PT [Prothrombin Time INR] [COAG] AM 0400 02/13/19 04:00 INR/PT [Prothrombin Time INR] [COAG] AM 0400 02/14/19 04:00 INR/PT [Prothrombin Time INR] [COAG] AM 0400 02/15/19 04:00 INR/PT [Prothrombin Time INR] [COAG] AM 0400 Date of Encounter: 02/10/19 Time of Encounter: 16:54 Hospital course: Mr. Duque is a 73 year old male with a past medical history of arthritis, atrial fibrillation, cirrhosis, congestive heart failure, COPD, diabetes type 2, hypertension and chronic kidney disease who presented to the ED after patient was noted to have an elevated blood glucose. Arrival patient was afebrile and hemodynamically stable. Laboratory workup notable for normal white blood cell count, chronic anemia at baseline, elevated creatinine of 2.31, bicarbonate 6, sodium of 129 and blood glucose of 568. UA did show large leukocyte esterase however sample was obtained from indwelling Velasco. No anion gap. Albumin 2.6. Chest x-ray does show cardiomegaly and evidence of congestive heart failure. he has a decubitus ulcer and therefore a CT scan of the pelvis was performed to rule out any deep tissue infection. Results showed no evidence of sacral decubitus ulcer or osteomyelitis; anasarca and mild ascites; multiple mesenteric and retroperitoneal lymph nodes possibly reactive, splenomegaly. Admitted for management of his hyperglycemia and chronic conditions. (1) DM type 2 with Hyperosmolar hyponatremiadue to noncompliance, insulin pump was stopped at home, ill continue detemir at HS, add Meal insulin and SSI, then titrate for BG control Current Visit: Yes Status: Acute A1C 7.9% BG improved (2) Acute hepatic and ,metabolic encephalopathy, hold opiate, ammonia was 107 on admission, will start lactulose 20 ml TID to keep stool 3-4 BM Current Visit: Yes Status: Acute (3) complicated UTI with yeast infection, scrotal yeast infection, need velasco, but unable to place, urology is consulted, will add fluconazole IV Current Visit: Yes Status: Acute (4) Stage 3 chronic kidney disease with severe anarsarca, IV lasix, and metolazone Current Visit: No Status: Acute Assessment and plan: History of stage III chronic kidney disease. Creatinine 2.13 which appears to be at the upper limit of his baseline. (5) Acute on chronic diastolic exacerbation of CHF (congestive heart failure), aggresive diuresis Current Visit: Yes Status: Acute Assessment and plan: . Echocardiogram in December showed an EF of 70% -Continue with strict I's and O's; daily weights. -Jayce consult to Urology for aid in Velasco placement. -We will consider starting patient on albumin and follow each unit with 80 mg Lasix. -Consult cardiology (6) B/L cellulitis conitnue home meds doxy and cefdinir Current Visit: No Status: Chronic Qualifiers: (7) Morbid obesity with BMI 48 Current Visit: No Status: Acute Assessment and plan: See CHF above (8) Atrial fibrillation, HR is controlled on coumadin Current Visit: No Status: Chronic Assessment and plan: History of atrial fibrillation rate controlled on anticoagulation. -Continue atenolol and warfarin. Qualifiers: Atrial fibrillation type: chronic Qualified Code(s): I48.2 - Chronic atrial fibrillation (9) DVT prophylaxis on coumadin Current Visit: No Status: Acute In the afternoon, patient and his requested to be transferred to [facility]. Vicente ,called [phone] extension [phone], spoke to Fannie, she accepted the transfer, but has to wait for the bed open, may be today or tomorrow, discussed with Nurse. Time spent discussing smoking cessation with patient: 3 to 10 minutes - Time Spent with Patient Total time spent providing and/or coordinating discharge services: Time spent: Less than 30 minutes - Discharge Medications Prescriptions: Continued Allopurinol [Zyloprim 100 MG] 200 mg PO HS Allopurinol [Zyloprim 100 MG] 100 mg PO QAM Atenolol [Tenormin] 25 mg PO BID Brimonidine 0.2% [Alphagan] 1 drop BOTH EYES BID Cholecalciferol (D-3) [Vitamin D] 2,000 unit PO DAILY Cyanocobalamin (Vitamin B-12) [Vitamin B-12] 500 mcg PO DAILY Latanoprost [Xalatan] 1 drop BOTH EYES HS Simvastatin [Zocor] 20 mg PO HS Subcutaneous Insulin Pump [T:Slim] 1 each MC AD Tamsulosin [Flomax] 0.4 mg PO DAILY Warfarin [Coumadin] 5 mg PO SUMOTUWETHSA OxyCODONE Immed Rel [Roxicodone 5 MG] 10 mg PO Q6HR PRN PRN Reason: Pain Dextrose [Trueplus Glucose] 15 gm PO DAILY PRN PRN Reason: Hypoglycemia Lidocaine 1 appl TP BID PRN PRN Reason: Pain Miconazole Nitrate [Anti-Fungal Powder] 1 appl TP BID Polyethylene Glycol 3350 [MiraLAX] 17 gm PO DAILY Warfarin [Coumadin] 7.5 mg PO FR Furosemide [Lasix] 80 mg PO BIDDIURETIC #120 tablet Melatonin [Melatin] 9 mg PO HS hydrALAZINE [HydrALAZINE] 25 mg PO BID #60 tablet Gabapentin [Neurontin] 300 mg PO BID #60 capsule metOLazone [Zaroxolyn] 5 mg PO DAILY@0730 #30 tablet Home Medications: Allopurinol [Zyloprim 100 MG] 100 mg PO QAM 12/26/18 [History] Allopurinol [Zyloprim 100 MG] 200 mg PO HS 12/26/18 [History] Atenolol [Tenormin] 25 mg PO BID 12/26/18 [History] Brimonidine 0.2% [Alphagan] 1 drop BOTH EYES BID 12/26/18 [History] Cholecalciferol (D-3) [Vitamin D] 2,000 unit PO DAILY 12/26/18 [History] Cyanocobalamin (Vitamin B-12) [Vitamin B-12] 500 mcg PO DAILY 12/26/18 [History] Latanoprost [Xalatan] 1 drop BOTH EYES HS 12/26/18 [History] OxyCODONE Immed Rel [Roxicodone 5 MG] 10 mg PO Q6HR PRN 12/26/18 [History] Simvastatin [Zocor] 20 mg PO HS 12/26/18 [History] Subcutaneous Insulin Pump [T:Slim] 1 each MC AD 12/26/18 [History] Tamsulosin [Flomax] 0.4 mg PO DAILY 12/26/18 [History] Warfarin [Coumadin] 5 mg PO SUMOTUWETHSA 12/26/18 [History] Dextrose [Trueplus Glucose] 15 gm PO DAILY PRN 01/23/19 [History] Lidocaine 1 appl TP BID PRN 01/23/19 [History] Miconazole Nitrate [Anti-Fungal Powder] 1 appl TP BID 01/23/19 [History] Polyethylene Glycol 3350 [MiraLAX] 17 gm PO DAILY 01/23/19 [History] Warfarin [Coumadin] 7.5 mg PO FR 01/23/19 [History] Furosemide [Lasix] 80 mg PO BIDDIURETIC #120 tablet 01/24/19 [Rx] Melatonin [Melatin] 9 mg PO HS 01/26/19 [History] Gabapentin [Neurontin] 300 mg PO BID #60 capsule 02/03/19 [Rx] hydrALAZINE [HydrALAZINE] 25 mg PO BID #60 tablet 02/03/19 [Rx] metOLazone [Zaroxolyn] 5 mg PO DAILY@0730 #30 tablet 02/03/19 [Rx] Allergies/Adverse Reactions: Allergy/AdvReac Type Severity Reaction Status Date / Time ciprofloxacin [From Cipro] AdvReac Nausea Verified 12/26/18 12:11 morphine AdvReac Nausea Verified 12/26/18 12:11 Saxagliptin [From Onglyza] AdvReac Nausea Verified 12/26/18 12:11 sulfamethoxazole AdvReac Nausea Verified 12/26/18 12:11 [From Bactrim] trimethoprim [From Bactrim] AdvReac Nausea Verified 12/26/18 12:11 Date of admission: 02/09/19 21:22 [facility] care physician: [facility] Consults: 02/09/19 19:58 Consult to Wound Care [CONS] Routine Reason for Consult: Decubitis ulcer Call Completed: No 02/09/19 21:24 Consult to Physical Therapy [CONS] Stat Comment: Evaluate, develop and implement POC Reason for Consult: Significant deconditioning and morbidity. He is assess for need for further physical therapy Does patient have active BEDREST order?: No Is patient medically & hemodynamically stable?: Yes 02/09/19 21:26 Consult to Cardiology [CONS] Routine Comment: Consulting Provider: Cardiology Cathy Reason for Consult: Generalized edema Call Completed: No 02/09/19 21:32 Consult to Cardiac Rehabilitation-Phase1 [CONS] Routine Comment: Reason for Consult: heart failure Call Completed: Yes Consult to Nurse Navigator [CONS] Routine Comment: 02/10/19 06:46 Consult to Urology [CONS] Routine Consulting Provider: Urology Cathy Reason for Consult: Difficulty with velasco placement due to scrotal edema Call Completed: Yes - Constitutional Vitals: Temp Pulse Resp BP Pulse Ox 98.5 F 72 18 125/62 95 02/10/19 16:34 02/10/19 16:34 02/10/19 16:34 02/10/19 16:34 02/10/19 16:34 General appearance: Present: A&O X 3, morbidly obese Exam: General: Alert and oriented 3 Skin:Normal color, no rash, no lesions. HEENT:EOM, pupils equal, round and reactive. Cardiovascular:Normal S1 & S2, no rubs, murmurs or gallops. No JVD. Pulse regular. Lungs:Normal breath sounds, no wheezes or crackles. Abdomen: Abdomen distended nontender. Positive bowel sounds Extremities: Bilateral 4+ lower extremity edema up to the mid thighs with evidence of chronic venous stasis. Neurological: alert and oriented to 3, able to follow commands. No focal deficits appreciated. Pulses:Carotid and radial pulses normal +2. Rest of the physical exam is non contributory - Patient Status Disposition: Transfer [facility] Condition: Fair Overall status at discharge: patient is not back to baseline - Discharge Instructions Follow Up With: [facility] Care Provider[facility] - Forms: ED Satisfaction Letter, Work/School Release
[2019-02-10] MEDS: Furosemide 40 MG/4 ML VIAL IVP SCH (17:32)
[2019-02-10] MEDS ORDERED: *HR* Warfarin 5 MG TABLET PO SCH (18:00)
[2019-02-10] MEDS ORDERED: *HR* Warfarin 3 MG TABLET PO ONE (18:00)
[2019-02-10] MEDS ORDERED: Warfarin perPT PO PRN (18:00)
[2019-02-10] MEDS ORDERED: *HR* OxyCODONE Immed Rel 5 MG TABLET PO PRN (18:05)
[2019-02-10] MEDS: Miconazole 2% ointment 141 APPL/141 GM TUBE TP SCH (18:48)
[2019-02-10] MEDS ORDERED: Furosemide 40 MG/4 ML VIAL IVP ONE (19:30)
[2019-02-10] MEDS ORDERED: Latanoprost 2.5 ML BOTTLE BOTH EYES SCH (21:00)
[2019-02-10] MEDS ORDERED: Insulin LISPRO 300 UNITS/3 ML VIAL SQ SCH (21:00)
[2019-02-10] MEDS ORDERED: Melatonin 3 MG TABLET PO SCH (21:00)
[2019-02-10] MEDS: Silvasorb 44.4 ML TUBE TP SCH (22:19)
[2019-02-10] MEDS: Insulin DETEMIR 100 UNIT/ML X5UNITS SQ SCH (22:40)
--- NOTE | 2019-02-11 00:16 | Event Note ---
Date of Encounter: 02/10/19 Time of Encounter: 20:04 Alerted by patient's nurse RAAD Scruggs the [facility] doctor was on the phone wished to speak with provider about [facility]. Pt. had a discharge order placed by Dr. Rodgers earlier in the day. Attempted to reach Dr. Rodgers via [employer] and through the [facility]aging [facility] unsuccessfully. Nurse provided number for Dr. Barker's contact number from the [facility]. Discussed this w/Dr. Benites. Neither of us know about the pt. to provide sing-out to this [facility] physician, so pt. to remain overnight until signout can be provided in the a.m. Nurse instructed to continue monitoring the pt. closely overnight and alert me immediately of any adverse changes.
[2019-02-11 02:41] LABS: Basophils % 0.2 %; Eosinophils # 0.3 K/mcL (0.0-0.6); Eosinophils % 3.9 %; Hematocrit 28.7 % (37.5-50.1); Hemoglobin 9.1 g/dL (12.9-16.9); Immature Granulocytes % 0.5 % (0-4); Lymphocytes # 1.2 K/mcL (0.6-4.6); Lymphocytes % 19.4 %; Mean Corpuscular HGB Conc 31.7 g/dL (31.6-35.5); Mean Corpuscular Hemoglobin 28.2 pg (28.0-33.3); Mean Corpuscular Volume 88.9 fL (83.0-100.0); Mean Platelet Volume 12.8 fL (9.4-12.4); Monocytes # 0.5 K/mcL (0.0-1.3); Monocytes % 8.5 %; Neutrophils # 4.3 K/mcL (1.6-8.9); Platelet Count 136 K/mcL (140-400); Red Blood Count 3.23 M/mcL (4.19-5.50); Red Cell Distribution Width 16.5 % (11.5-14.5); Segmented Neutrophils % 67.5 %; White Blood Count 6.4 K/mcL (4.3-11.1)
[2019-02-11 02:47] LABS: INR 2.5
[2019-02-11 02:59] LABS: Albumin 2.5 g/dL (3.5-5.7); Albumin/Globulin Ratio 0.7 (1.1-2.2); Bilirubin,Direct 0.5 mg/dL (0.0-0.2); Bilirubin,Indirect 0.8 mg/dL (0.0-1.2); Bilirubin,Total 1.3 mg/dL (0.3-1.0); Calcium 8.6 mg/dL (8.6-10.3); Globulin 3.8 g/dL (2.4-3.5); Potassium 3.9 mEq/L (3.5-5.1); Total Protein 6.3 g/dL (6.4-8.9)
[2019-02-11] MEDS ORDERED: Furosemide 40 MG/4 ML VIAL IVP SCH (08:00)
[2019-02-11] MEDS: Insulin LISPRO 300 UNITS/3 ML VIAL SQ SCH ×4 (08:49→11:44)
[2019-02-11] MEDS: hydrALAZINE 25 MG TABLET PO SCH (08:49)
[2019-02-11] MEDS: Furosemide 40 MG/4 ML VIAL IVP SCH (08:50)
[2019-02-11] MEDS: Cholecalciferol (D-3) 1,000 UNIT TABLET PO SCH (08:50)
[2019-02-11] MEDS: Doxycycline 100 MG CAPSULE PO SCH (08:50)
[2019-02-11] MEDS: Cyanocobalamin (B-12) 1,000 MCG TABLET PO SCH (08:50)
[2019-02-11] MEDS: metOLazone 5 MG TABLET PO SCH (08:50)
[2019-02-11] MEDS: Cefdinir 300 MG CAPSULE PO SCH (08:50)
[2019-02-11] MEDS: Lactulose Oral Soln 20 GM/30 ML UDC PO SCH (08:53)
[2019-02-11] MEDS ORDERED: Fluconazole 200 MG/100 ML 100 MG/50 ML BAG IVPB SCH (09:00)
[2019-02-11] MEDS: Nystatin POWDER 30 GM BOTTLE TP SCH (09:12)
[2019-02-11] MEDS: Silvasorb 44.4 ML TUBE TP SCH (09:32)
[2019-02-11] MEDS: Miconazole 2% ointment 141 APPL/141 GM TUBE TP SCH (09:32)
--- NOTE | 2019-02-11 11:31 | Internal Med Progress Note ---
Hospitalist Progress Note - Encounter Date of Encounter: 02/11/19 Time of Encounter: 11:29 - Subjective Interval History: The patient was seen and examined at the bedside. The patient feels mad because not transferred to [facility] already called [place] and talked to Fannie, currently reviewing papers for transfer patient denied CP or SOB not complaint with lactulose - Exam Vitals: Temp Pulse Resp BP Pulse Ox 98.1 F 61 18 126/62 93 02/11/19 06:52 02/11/19 06:52 02/11/19 06:52 02/11/19 06:52 02/11/19 06:52 Exam: Physical examination: General: Alert and awake , looks oriented Skin:Normal color, no rash, no lesions. HEENT:EOM, pupils equal, round and reactive. Cardiovascular:Normal S1 & S2, no rubs, murmurs or gallops. No JVD. Pulse regular. Lungs:Normal breath sounds, no wheezes or crackles. Abdomen: Abdomen distended nontender. Positive bowel sounds Extremities: Bilateral 2+ lower extremity edema up to the mid thighs with evidence of chronic venous stasis. Neurological: alert and oriented to 3, able to follow commands. No focal deficits appreciated. Pulses:Carotid and radial pulses normal +2. DVT Prophylaxis: on coumadin INR is therapeutic - Summary of Assessment and Plan Summary of Assessment and Plan: Mr. Duque is a 73 year old male with a past medical history of arthritis, atrial fibrillation, cirrhosis, congestive heart failure, COPD, diabetes type 2, hypertension and chronic kidney disease who presented to the ED after patient was noted to have an elevated blood glucose. Arrival patient was afebrile and hemodynamically stable. Laboratory workup notable for normal white blood cell count, chronic anemia at baseline, elevated creatinine of 2.31, bicarbonate 6, sodium of 129 and blood glucose of 568. UA did show large leukocyte esterase however sample was obtained from indwelling Velasco. No anion gap. Albumin 2.6. Chest x-ray does show cardiomegaly and evidence of congestive heart failure. he has a decubitus ulcer and therefore a CT scan of the pelvis was performed to rule out any deep tissue infection. Results showed no evidence of sacral decubitus ulcer or osteomyelitis; anasarca and mild ascites; multiple mesenteric and retroperitoneal lymph nodes possibly reactive, splenomegaly. Admitted for management of his hyperglycemia and chronic conditions. (1) DM type 2 with Hyperosmolar hyponatremiadue to noncompliance, insulin pump was stopped at home, continue detemir at HS, add Meal insulin and SSI, then titrate for BG control Current Visit: Yes Status: Acute A1C 7.9% (2) Acute hepatic and ,metabolic encephalopathy, hold opiate, ammonia was 107 on admission, on lactulose 20 ml TID to keep stool 3-4 BM ammonia trending down to 77 patient not complain with lactulose liver function WNL Current Visit: Yes Status: Acute (3) complicated UTI with yeast infection, scrotal yeast infection, s/p velasco placement by urologist urine cx growing G negative rods and yeast growth on oral Omnicef and fluconazole Current Visit: Yes Status: Acute (4) Stage 3 chronic kidney disease with severe anarsarca, IV lasix, and metolazone Current Visit: No Status: Acute Assessment and plan: History of stage III chronic kidney disease. Creatinine today 1.93 close to his baseline. (5) Acute on chronic diastolic exacerbation of CHF (congestive heart failure), aggresive diuresis Current Visit: Yes Status: Acute Assessment and plan: . Echocardiogram in December showed an EF of 70% -Continue with strict I's and O's; daily weights. -s/p FC placement -on iv lasix - closely monitor renal function and serum electrolytes -Consult cardiology (6) B/L cellulitis conitnue home meds doxy and cefdinir Current Visit: No Status: Chronic Qualifiers: (7) Morbid obesity with BMI 48 Current Visit: No Status: Acute Assessment and plan: See CHF above (8) Atrial fibrillation, HR is controlled on coumadin Current Visit: No Status: Chronic Assessment and plan: History of atrial fibrillation rate controlled on anticoagulation. -Continue atenolol and warfarin. Qualifiers: Atrial fibrillation type: chronic Qualified Code(s): I48.2 - Chronic atrial fibrillation (9) DVT prophylaxis on coumadin Current Visit: No Status: Acute - Time Spent with Patient Total time spent is greater than 50% in coordination of care (as documented) at patient's floor/unit and/or counseling patient: Plan of Care Discussed with: patient Internal Medicine: Result - Labs CBC & Chem 7: 02/11/19 02:26 02/11/19 02:26 Labs: Short CBC 02/11/19 Range/Units 02:26 WBC 6.4 (4.3-11.1) K/mcL Hgb 9.1 L (12.9-16.9) g/dL Hct 28.7 L (37.5-50.1) % Plt Count 136 L (140-400) K/mcL Neutrophils # 4.3 (1.6-8.9) K/mcL BMP 02/11/19 02:26 Sodium 136 Potassium 3.9 Chloride 102 Carbon Dioxide 25 BUN 88 H Creatinine 1.93 H Glucose 205 H Calcium 8.6 Liver Function 02/11/19 Range/Units 02:26 Total Bilirubin 1.3 H (0.3-1.0) mg/dL Direct Bilirubin 0.5 H (0.0-0.2) mg/dL AST 20 (13-39) Units/L ALT 20 (7-52) Units/L Alkaline Phosphatase 84 (34-104) Units/L Albumin 2.5 L (3.5-5.7) g/dL - ABG Interpretation ABG results: PT/INR, D-dimer PT 28.0 Seconds (9.4-12.1) H 02/11/19 02:26 Consult Discharge Plan - Plan [facility]Primary Care Provider[facility] -
[2019-02-11 11:32] VITALS: BP 136/64
[2019-02-11] MEDS ORDERED: *HR* Warfarin 5 MG TABLET PO SCH (18:00)
== END 2019-02-11 14:13 ==
LOC: 2ANU 16:54 → EMEROOARM 16:54 → 2ANU 22:13
PROVIDERS: ADMIT Internal Medicine; ATTEND Internal Medicine

== ENCOUNTER 2019-08-20 05:26 | Inpatient (IN) ==
[2019-08-20] MEDS ORDERED: *HR* Dextrose 50 % in Water (Syg) 50 ML SYRINGE IVP ONE (06:40)
[2019-08-20 06:41] LABS: Bilirubin,Urine Negative (Negative); Blood,Urine Small (Negative); Clarity,Urine Turbid (Clear); Color,Urine Yellow (Yellow); Glucose,Urine (UA) Normal (Normal); Ketones,Urine Negative (Negative); Leukocyte Esterase,Urine Large (Negative); Nitrite,Urine Negative (Negative); Protein,Urine 100 mg/dL (Neg-Trace); Specific Gravity,Urine 1.016 (1.010-1.025); Urobilinogen,Urine Normal (Normal)
[2019-08-20 06:42] LABS: Bacteria,Urine Many per hpf (None-Few); Basophils % 0.4 %; Eosinophils # 0.1 K/mcL (0.0-0.6); Eosinophils % 1.7 %; Hematocrit 34.2 % (37.5-50.1); Hemoglobin 10.8 g/dL (12.9-16.9); Immature Granulocytes % 0.4 % (0-4); Lymphocytes # 0.9 K/mcL (0.6-4.6); Lymphocytes % 11.2 %; Mean Corpuscular HGB Conc 31.6 g/dL (31.6-35.5); Mean Corpuscular Volume 91.9 fL (83.0-100.0); Mean Platelet Volume 10.7 fL (9.4-12.4); Monocytes # 0.7 K/mcL (0.0-1.3); Monocytes % 8.4 %; Neutrophils # 6.1 K/mcL (1.6-8.9); Platelet Count 185 K/mcL (140-400); Red Blood Count 3.72 M/mcL (4.19-5.50); Red Cell Distribution Width 15.7 % (11.5-14.5); Segmented Neutrophils % 77.9 %; Squamous Epithelial Cell,Urine Many per lpf (None-Few); WBC,Urine TNTC per hpf (0-3); White Blood Count 7.9 K/mcL (4.3-11.1)
[2019-08-20 06:43] LABS: Hyaline Casts,Urine Few per lpf (None-Few)
[2019-08-20] MEDS ORDERED: *HR* Dextrose 50 % in Water (Syg) 50 ML SYRINGE ONE (06:43)
[2019-08-20 06:49] LABS: INR 3.4; Prothrombin Time 38.2 Seconds (9.4-12.1)
[2019-08-20 06:53] LABS: Triple Phosphate Crystal,Urine Present
[2019-08-20 06:54] LABS: Yeast,Urine Few per hpf (None Seen)
[2019-08-20 07:04] LABS: Alanine Aminotransferase 15 Units/L (7-52); Albumin 2.2 g/dL (3.5-5.7); Albumin/Globulin Ratio 0.6 (1.1-2.2); Alkaline Phosphatase 71 Units/L (34-104); Aspartate Amino Transferase 30 Units/L (13-39); BUN/Creatinine Ratio 29 (6-26); Bilirubin,Direct 0.2 mg/dL (0.0-0.2); Bilirubin,Indirect 0.3 mg/dL (0.0-1.0); Bilirubin,Total 0.5 mg/dL (0.3-1.0); Blood Urea Nitrogen 50 mg/dL (8-23); Calcium 8.3 mg/dL (8.6-10.3); Carbon Dioxide 29 mEq/L (23-29); Chloride 100 mEq/L (98-107); Glucose 50 mg/dL (70-105); Osmolality,Calculated 291 (280-300); Potassium 4.8 mEq/L (3.5-5.1); Sodium 135 mEq/L (136-145); Total Protein 6.2 g/dL (6.4-8.9); eGFR For African Americans 48 (> 60); eGFR For Non-African Americans 39 (> 60)
[2019-08-20 07:05] LABS: Troponin I < 0.03 ng/mL (< 0.04)
[2019-08-20] MEDS ORDERED: Piperacillin/Tazobactam 3.375 GM in 0.9 % Sodium Chloride Mini Bag 100 ML IVPB ONE (07:12)
[2019-08-20] MEDS ORDERED: Furosemide 40 MG/4 ML VIAL IVP ONE ×2 (07:23→16:00)
[2019-08-20] MEDS: D10% in Water 500 ML IVC SCH ×2 (07:48→19:39)
[2019-08-20] MEDS ORDERED: Naloxone 0.4 MG/ML INJ IVP PRN (09:04)
[2019-08-20] MEDS: Lactulose Oral Soln 20 GM/30 ML UDC PO SCH ×2 (14:31→20:13)
[2019-08-20] MEDS: Piperacillin/Tazobactam 3.375 GM in 0.9 % Sodium Chloride Mini Bag 100 ML IVPB SCH (14:41)
[2019-08-20] MEDS ORDERED: Albumin 25% 25gram/100mL 25 GM/100 ML IV.SOLN IVPB ONE ×2 (15:00→19:00)
[2019-08-20] MEDS: Insulin LISPRO 300 UNITS/3 ML VIAL SQ SCH ×2 (17:00→20:51)
[2019-08-20] MEDS ORDERED: D5% in Water 1,000 ML IVC PRN (17:52)
[2019-08-20] MEDS ORDERED: *HR* Dextrose 50 % in Water (Syg) 50 ML SYRINGE IVP PRN (17:52)
[2019-08-20] MEDS ORDERED: Dextrose Gel 15 GM/37.5 ML TUBE PO PRN ×2 (17:52)
[2019-08-20] MEDS ORDERED: Insulin LISPRO 300 UNITS/3 ML VIAL SQ ONE (17:56)
[2019-08-20] MEDS: hydrALAZINE 10 MG TABLET PO SCH (20:13)
[2019-08-20] MEDS ORDERED: *HR* OxyCODONE Immed Rel 5 MG TABLET PO ONE (20:30)
[2019-08-20] MEDS: Insulin DETEMIR 100 UNIT/ML X5UNITS SQ SCH (20:51)
[2019-08-20] MEDS ORDERED: Furosemide 40 MG/4 ML VIAL IVP SCH (21:00)
[2019-08-20] MEDS ORDERED: Insulin LISPRO 300 UNITS/3 ML VIAL SQ SCH (21:00)
[2019-08-21] MEDS: Piperacillin/Tazobactam 3.375 GM in 0.9 % Sodium Chloride Mini Bag 100 ML IVPB SCH ×3 (01:32→16:14)
[2019-08-21 05:34] LABS: Potassium 4.7 mEq/L (3.5-5.1)
[2019-08-21] MEDS ORDERED: Insulin LISPRO 300 UNITS/3 ML VIAL SQ SCH (07:30)
[2019-08-21] MEDS ORDERED: Torsemide 20 MG TABLET PO SCH (09:00)
[2019-08-21] MEDS: Insulin LISPRO 300 UNITS/3 ML VIAL SQ SCH ×4 (09:05→22:06)
[2019-08-21] MEDS: Lactulose Oral Soln 20 GM/30 ML UDC PO SCH ×4 (09:57→22:04)
[2019-08-21] MEDS: hydrALAZINE 10 MG TABLET PO SCH ×2 (10:01→22:01)
[2019-08-21] MEDS: Insulin DETEMIR 100 UNIT/ML X5UNITS SQ SCH ×2 (10:03→22:07)
[2019-08-21] MEDS ORDERED: Ipratropium/Albuterol Neb 3 ML IH PRN (15:42)
[2019-08-21] MEDS ORDERED: *HR* Warfarin 5 MG TABLET PO SCH (15:45)
[2019-08-21 17:06] LABS: Prothrombin Time 34.5 Seconds (9.4-12.1)
[2019-08-21] MEDS: Bumetanide 1 MG/4 ML VIAL IVP SCH (17:59)
[2019-08-21] MEDS ORDERED: *HR* Warfarin 2.5 MG TABLET PO ONE (18:00)
[2019-08-21] MEDS ORDERED: Warfarin perPT PO PRN (18:00)
[2019-08-21] MEDS: Cyanocobalamin (B-12) 1,000 MCG TABLET PO SCH (18:06)
[2019-08-21] MEDS: Gabapentin 300 MG CAPSULE PO SCH (22:00)
[2019-08-21] MEDS: Latanoprost 2.5 ML BOTTLE BOTH EYES SCH (22:10)
[2019-08-21 22:39] LABS: Estimated Average Glucose 117 mg/dl
[2019-08-22] MEDS: Piperacillin/Tazobactam 3.375 GM in 0.9 % Sodium Chloride Mini Bag 100 ML IVPB SCH ×3 (01:21→17:23)
[2019-08-22 05:34] LABS: Basophils % 0.3 %; Eosinophils # 0.4 K/mcL (0.0-0.6); Eosinophils % 5.7 %; Hematocrit 33.4 % (37.5-50.1); Hemoglobin 10.6 g/dL (12.9-16.9); Immature Granulocytes % 0.3 % (0-4); Lymphocytes # 1.7 K/mcL (0.6-4.6); Lymphocytes % 23.1 %; Mean Corpuscular HGB Conc 31.7 g/dL (31.6-35.5); Mean Corpuscular Hemoglobin 29.4 pg (28.0-33.3); Mean Corpuscular Volume 92.8 fL (83.0-100.0); Mean Platelet Volume 10.6 fL (9.4-12.4); Monocytes # 0.7 K/mcL (0.0-1.3); Monocytes % 9.9 %; Neutrophils # 4.5 K/mcL (1.6-8.9); Platelet Count 183 K/mcL (140-400); Red Cell Distribution Width 15.9 % (11.5-14.5); Segmented Neutrophils % 60.7 %; White Blood Count 7.4 K/mcL (4.3-11.1)
[2019-08-22 05:38] LABS: INR 3.1; Prothrombin Time 35.7 Seconds (9.4-12.1)
[2019-08-22 05:55] LABS: Calcium 8.3 mg/dL (8.6-10.3); Magnesium 2.2 mg/dL (1.6-2.6); Phosphorous 3.5 mg/dL (2.7-4.5); Potassium 4.2 mEq/L (3.5-5.1)
[2019-08-22] MEDS: Insulin LISPRO 300 UNITS/3 ML VIAL SQ SCH ×4 (08:44→19:39)
[2019-08-22] MEDS: hydrALAZINE 10 MG TABLET PO SCH ×2 (08:54→19:35)
[2019-08-22] MEDS: Bumetanide 1 MG/4 ML VIAL IVP SCH ×2 (08:54→17:23)
[2019-08-22] MEDS: Lactulose Oral Soln 20 GM/30 ML UDC PO SCH ×4 (08:54→19:34)
[2019-08-22] MEDS: Cholecalciferol (D-3) 1,000 UNIT (25MCG) TABLET PO SCH (08:54)
[2019-08-22] MEDS: Gabapentin 300 MG CAPSULE PO SCH ×2 (08:54→19:34)
[2019-08-22] MEDS: Insulin DETEMIR 100 UNIT/ML X5UNITS SQ SCH ×2 (08:57→19:37)
[2019-08-22] MEDS ORDERED: *HR* Warfarin 5 MG TABLET PO SCH (15:31)
[2019-08-22] MEDS ORDERED: *HR* Warfarin 2.5 MG TABLET PO ONE (18:00)
[2019-08-22] MEDS: Latanoprost 2.5 ML BOTTLE BOTH EYES SCH (21:28)
[2019-08-23] MEDS ORDERED: Ondansetron 4 MG/2 ML VIAL IVP PRN (00:47)
[2019-08-23] MEDS: Piperacillin/Tazobactam 3.375 GM in 0.9 % Sodium Chloride Mini Bag 100 ML IVPB SCH ×3 (01:10→17:00)
[2019-08-23] MEDS: Gabapentin 300 MG CAPSULE PO SCH ×2 (07:54→22:56)
[2019-08-23] MEDS: hydrALAZINE 10 MG TABLET PO SCH ×2 (07:55→22:56)
[2019-08-23] MEDS: Cholecalciferol (D-3) 1,000 UNIT (25MCG) TABLET PO SCH (07:55)
[2019-08-23] MEDS: Bumetanide 1 MG/4 ML VIAL IVP SCH ×2 (07:55→17:00)
[2019-08-23] MEDS: Lactulose Oral Soln 20 GM/30 ML UDC PO SCH ×4 (07:55→22:57)
[2019-08-23] MEDS: Insulin LISPRO 300 UNITS/3 ML VIAL SQ SCH ×4 (08:27→22:41)
[2019-08-23] MEDS: Insulin DETEMIR 100 UNIT/ML X5UNITS SQ SCH ×2 (08:28→22:58)
[2019-08-23] MEDS: Cyanocobalamin (B-12) 1,000 MCG TABLET PO SCH (16:59)
[2019-08-23 18:18] LABS: Basophils % 0.4 %; Eosinophils # 0.5 K/mcL (0.0-0.6); Eosinophils % 6.3 %; Hematocrit 37.3 % (37.5-50.1); Hemoglobin 11.6 g/dL (12.9-16.9); Immature Granulocytes % 0.4 % (0-4); Lymphocytes # 1.4 K/mcL (0.6-4.6); Lymphocytes % 16.9 %; Mean Corpuscular HGB Conc 31.1 g/dL (31.6-35.5); Mean Corpuscular Hemoglobin 28.6 pg (28.0-33.3); Mean Corpuscular Volume 91.9 fL (83.0-100.0); Monocytes # 0.7 K/mcL (0.0-1.3); Monocytes % 8.2 %; Neutrophils # 5.5 K/mcL (1.6-8.9); Platelet Count 191 K/mcL (140-400); Red Blood Count 4.06 M/mcL (4.19-5.50); Red Cell Distribution Width 15.9 % (11.5-14.5); Segmented Neutrophils % 67.8 %; White Blood Count 8.1 K/mcL (4.3-11.1)
[2019-08-23 18:26] LABS: INR 3.3; Prothrombin Time 37.1 Seconds (9.4-12.1)
[2019-08-23 18:41] LABS: Calcium 8.3 mg/dL (8.6-10.3); Magnesium 2.2 mg/dL (1.6-2.6); Phosphorous 3.3 mg/dL (2.7-4.5)
[2019-08-24] MEDS: *HR* OxyCODONE Immed Rel 5 MG TABLET PO PRN ×2 (00:05→22:08)
[2019-08-24] MEDS: Latanoprost 2.5 ML BOTTLE BOTH EYES SCH ×2 (00:06→21:41)
[2019-08-24] MEDS: Piperacillin/Tazobactam 3.375 GM in 0.9 % Sodium Chloride Mini Bag 100 ML IVPB SCH ×3 (00:08→17:08)
[2019-08-24 06:16] LABS: Basophils % 0.3 %; Eosinophils # 0.5 K/mcL (0.0-0.6); Eosinophils % 7.7 %; Hematocrit 37.7 % (37.5-50.1); Hemoglobin 11.4 g/dL (12.9-16.9); Immature Granulocytes % 0.1 % (0-4); Lymphocytes # 1.4 K/mcL (0.6-4.6); Lymphocytes % 19.8 %; Mean Corpuscular HGB Conc 30.2 g/dL (31.6-35.5); Mean Corpuscular Hemoglobin 29.2 pg (28.0-33.3); Mean Corpuscular Volume 96.4 fL (83.0-100.0); Mean Platelet Volume 10.9 fL (9.4-12.4); Monocytes # 0.7 K/mcL (0.0-1.3); Monocytes % 9.2 %; Neutrophils # 4.4 K/mcL (1.6-8.9); Platelet Count 167 K/mcL (140-400); Red Blood Count 3.91 M/mcL (4.19-5.50); Red Cell Distribution Width 15.9 % (11.5-14.5); Segmented Neutrophils % 62.9 %
[2019-08-24 06:18] LABS: INR 3.1; Prothrombin Time 35.6 Seconds (9.4-12.1)
[2019-08-24 06:35] LABS: Magnesium 2.2 mg/dL (1.6-2.6); Phosphorous 3.4 mg/dL (2.7-4.5)
[2019-08-24 06:36] LABS: Calcium 8.4 mg/dL (8.6-10.3)
[2019-08-24] MEDS: Insulin LISPRO 300 UNITS/3 ML VIAL SQ SCH ×4 (08:59→21:39)
[2019-08-24] MEDS: hydrALAZINE 10 MG TABLET PO SCH ×2 (09:03→21:43)
[2019-08-24] MEDS: Gabapentin 300 MG CAPSULE PO SCH ×2 (09:03→21:43)
[2019-08-24] MEDS: Cholecalciferol (D-3) 1,000 UNIT (25MCG) TABLET PO SCH (09:03)
[2019-08-24] MEDS: Lactulose Oral Soln 20 GM/30 ML UDC PO SCH ×4 (09:03→21:46)
[2019-08-24] MEDS: Bumetanide 1 MG/4 ML VIAL IVP SCH ×2 (09:05→17:07)
[2019-08-24] MEDS: Insulin DETEMIR 100 UNIT/ML X5UNITS SQ SCH ×2 (09:10→21:47)
[2019-08-24] MEDS ORDERED: *HR* Warfarin 1 MG TABLET PO ONE (18:00)
[2019-08-25] MEDS: Ampicillin 2 GM in 0.9 % Sodium Chloride Mini Bag 100 ML IVPB SCH ×2 (01:03→07:52)
[2019-08-25] MEDS: MetroNIDAZOLE 500 MG/100 ML 500 MG/100 ML BAG IVPB SCH ×2 (01:41→08:48)
[2019-08-25 02:08] LABS: ABG Base Excess 8 mEq/L (-2 to 3); ABG HCO3 36 mEq/L (21-27); ABG Oxygen Saturation 94 % (95-98); ABG PCO2 66 mmHg (35-45); ABG PH 7.34 pH Units (7.32-7.45); ABG PO2 80 mmHg (85-104); ABG TCO2 38 mEq/L (20-26)
[2019-08-25 03:35] LABS: INR 2.7; Prothrombin Time 30.3 Seconds (9.4-12.1)
[2019-08-25 03:48] LABS: Basophils % 0.3 %; Eosinophils # 0.6 K/mcL (0.0-0.6); Eosinophils % 8.1 %; Hematocrit 35.3 % (37.5-50.1); Hemoglobin 10.8 g/dL (12.9-16.9); Immature Granulocytes % 0.3 % (0-4); Lymphocytes # 1.6 K/mcL (0.6-4.6); Lymphocytes % 22.6 %; Mean Corpuscular HGB Conc 30.6 g/dL (31.6-35.5); Mean Corpuscular Hemoglobin 29.3 pg (28.0-33.3); Mean Corpuscular Volume 95.9 fL (83.0-100.0); Mean Platelet Volume 11.1 fL (9.4-12.4); Monocytes # 0.6 K/mcL (0.0-1.3); Monocytes % 8.9 %; Neutrophils # 4.2 K/mcL (1.6-8.9); Platelet Count 167 K/mcL (140-400); Red Blood Count 3.68 M/mcL (4.19-5.50); Red Cell Distribution Width 15.8 % (11.5-14.5); Segmented Neutrophils % 59.8 %; White Blood Count 6.9 K/mcL (4.3-11.1)
[2019-08-25 03:49] LABS: Calcium 8.1 mg/dL (8.6-10.3); Potassium 4.1 mEq/L (3.5-5.1)
[2019-08-25 06:57] VITALS: BP 136/69
[2019-08-25] MEDS: Insulin LISPRO 300 UNITS/3 ML VIAL SQ SCH (08:34)
[2019-08-25] MEDS: Bumetanide 1 MG/4 ML VIAL IVP SCH (08:48)
[2019-08-25] MEDS: Insulin DETEMIR 100 UNIT/ML X5UNITS SQ SCH (08:49)
[2019-08-25] MEDS: Cholecalciferol (D-3) 1,000 UNIT (25MCG) TABLET PO SCH (08:49)
[2019-08-25] MEDS: Gabapentin 300 MG CAPSULE PO SCH (08:49)
[2019-08-25] MEDS: Lactulose Oral Soln 20 GM/30 ML UDC PO SCH (08:49)
[2019-08-25] MEDS: hydrALAZINE 10 MG TABLET PO SCH (08:49)
[2019-08-25] MEDS ORDERED: metroNIDAZOLE 500 MG TABLET PO SCH (15:00)
[2019-08-25] MEDS ORDERED: *HR* Warfarin 2.5 MG TABLET PO ONE (18:00)
== END 2019-08-25 12:04 | disposition home health service (06) | DRG 637 ==
LOC: EMEROOARM 05:26 → 2NNU 05:26 → SUATTDRO 08:16 → 2NNU 09:57 → SUATTDRO 08-22 13:10 → 2ANU 08-23 13:55
PROVIDERS: ADMIT Internal Medicine; ATTEND Family Medicine